=== PATIENT | female | born 1940 | race Caucasian/White ===

== ENCOUNTER 2016-04-24 09:41 | Day surgery (SDC) | payer OTHER ==
[2016-04-24] MEDS ORDERED: BUPIVACAINE/EPI 0.25% 30 ML SDV ONE (11:19)
[2016-04-24] MEDS ORDERED: PROPOFOL/EMULSION 500 MG/50 ML BOTTLE IV ONE (11:29)
[2016-04-24] MEDS ORDERED: PHENYLEPHRINE 0.5% NASAL 15 ML SPRAY ONE (11:30)
[2016-04-24] MEDS ORDERED: ONDANSETRON 4 MG/2 ML VIAL ONE (11:32)
[2016-04-24] MEDS ORDERED: LIDOCAINE 2% 5 ML SDV ONE (11:32)
[2016-04-24] MEDS ORDERED: MIDAZOLAM 2 MG/2 ML VIAL ONE (11:54)
[2016-04-24] MEDS ORDERED: fentaNYL 100 MCG/2 ML INJ ONE (12:19)
[2016-04-24] MEDS ORDERED: DEXAMETHASONE 4 MG/ML VIAL ONE ×2 (12:26→12:29)
[2016-04-24] MEDS ORDERED: HYDROCOD/APAP 7.5/325 IN 15ML UDCUP PO PRN (14:42)
[2016-04-24] MEDS ORDERED: ONDANSETRON 4 MG/2 ML VIAL IVP PRN (14:44)
[2016-04-24] MEDS ORDERED: ACETAMINOPHEN 160 MG/5 ML UDCUP PO PRN (14:45)
--- NOTE | 2016-05-01 12:14 | GOP ---
[f rep st] OPERATIVE REPORT DATE OF OPERATION: 04/24/2016 SURGEON: Kai Pierre MD CO SURGEON: Sophia Geronimo COMPLICATIONS: None. ANESTHESIA: General. PREOPERATIVE DIAGNOSIS: 1. 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 POSTOPERATIVE DIAGNOSIS: 1. 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 PROCEDURE PERFORMED: Destruction of oral mucosal lesion utilizing the CO2 laser. FINDINGS: Patient was found to have a 1 x 1 cm region just at the junction of the soft palate and the uvula that was irritated and slightly exophytic. Previous biopsy of this had been consistent with moderate dysplasia. ESTIMATED BLOOD LOSS: Minimal. INDICATIONS: The patient is a pleasant 75-year-old woman, who has a history of significant smoking abuse and an oral mucosal lesion that was noted by her dentist. 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 We discussed options including very close observation versus excision or destruction of the lesion, and she requested the latter secondary to her being significantly concerned about this. Informed consent was obtained. DESCRIPTION OF PROCEDURE: The patient was first seen in the preoperative area, where informed consent was obtained. She was then brought back to the operating room, where Anesthesia sedated and intubated her. We then used a universal timeout to confirm proper patient location and equipment. The laser wrap was there. All laser safety rules were followed. We did place wet cloths over the patient's face and mouth. A Glenis-Eldon mouth gag was placed and then retracted and suspended, giving good visualization of the oropharynx. The lesion was noted. Eye protection was placed for the patient, as well as for all people within the operating room , and the ET tube was covered using a wet Ray-Roselyn. Once we had good visualization, Dr. Pierre was the 1 who performed the CO2 laser excision on a continuous pulse of 5 cintron and multiple layer of lasering were done. The lesion was removed down to the muscular layer. There was no significant bleeding or other abnormalities. This was about a 13 x 8 mm section that included the junction of the soft palate into the uvula and then the right lateral surface of the uvula, and then a very minimal portion on the posterior surface of the soft palate. Once this was done, the laser was turned off. All instruments were removed. All the safety protection was removed from the patient and then the Glenis-Eldon mouth gag was then un-suspended and released and taken down. At this point, the patient was turned back over to anesthesia where she was awoken and extubated, and taken to PACU in stable condition. There were no complications and she tolerated the procedure well. /[id number]/MODL MTDD
== END 2016-04-24 15:45 | disposition home or self-care (01) ==
LOC: FSGY 09:41
PROVIDERS: ATTEND Otolaryngology
PROC: 0C5 Mouth and Throat, Destruction (ICD-10-PCS; 2016-04-24)
PROC: 0C53XZZ Destruction of Soft Palate, External Approach (ICD-10-PCS; principal; 2016-04-24 11:30)
DX: K13.29 Other disturbances of oral epithelium, including tongue (principal); K13.70 Unspecified lesions of oral mucosa; Z87.891 Personal history of nicotine dependence
CPT/HCPCS: J1100; J2250; J2405; J2704; J3010

== ENCOUNTER 2016-07-14 13:07 | Inpatient (IN) | payer OTHER ==
[2016-07-14] MEDS ORDERED: NS 1,000 ML IV ONE (13:12)
--- NOTE | 2016-07-14 13:15 | EDPHY ---
H & P Time Seen by Provider: 07/14/16 13:13 HPI/ROS: CHIEF COMPLAINT: Altered mental status HISTORY OF PRESENT ILLNESS: The patient presents to the ED after she was found with altered mental status in her garage. The patient was last seen her usual state of health by her daughter 3 days ago. The patient is unable to provide additional history secondary to acute altered mental status. The patient's daughter reports that she does have a history of alcohol dependence. The patient is not anticoagulated. Patient has not had a recent febrile illness, cough or complaints of acute pain per her daughter. REVIEW OF SYSTEMS: A comprehensive 10 point review of systems is unobtainable secondary to altered mental status Source: Family, EMS Exam Limitations: Clinical condition - Medical/Surgical History Hx Diabetes: No Other PMH: PCP Lenora Reinoso. Bilateral tear duct gland surgery (stents) - Social History Smoking Status: Former smoker Alcohol Use: Heavy - Physical Exam Exam: General Appearance: Elderly female, deconditioned, alert but confused Eyes: Pupils equal and round no pallor or injection ENT, Mouth: Dry mucous membranes Respiratory: There are no retractions, lungs are clear to auscultation Cardiovascular: Regular rate and rhythm Gastrointestinal: Abdomen is soft and nontender, no masses, bowel sounds normal Neurological: Withdrawals to pain all 4 extremities Skin: Multiple old areas of ecchymosis Musculoskeletal: Neck is supple nontender Extremities: No gross deformity Constitutional: Initial Vital Signs O2 Sat (%) 88 L 07/14/16 13:26 O2 Delivery Mode Nasal Cannula O2 (L/minute) 2 Allergies/Adverse Reactions: No Known Allergies Allergy (Verified 04/11/16 14:19) Home Medications: Medication Instructions Recorded ALPRAZolam [Xanax 1 MG (*)] 1 mg PO HS PRN 07/14/16 Medical Decision Making - Diagnostics EKG Interpretation: EKG: Complete interpretation has been separately recorded in the [email or web address] archive. Summary impression: Atrial fibrillation, nonspecific ST T wave changes noted, possible Casiano waves Imaging Results: Imaging Impressions Cervical Spine CT 07/14/16 13:12 Impression: 1. No acute fracture or soft tissue swelling. 2. Multilevel degenerative disk and facet arthropathy. 3. If the patient has persistent pain or neurologic deficits, consider cervical spine MRI. Findings discussed with Emergency Department physician, Haris Tompkins, on at 1350 hours. Chest X-Ray 07/14/16 13:12 Impression: Clear lungs. Negative portable chest. Head CT 07/14/16 13:12 Impression: Negative. No acute fracture or evidence of acute intracranial injury. Findings discussed with Emergency Department physician, Haris Tompkins, at 1350 hours 07/14/2016. Procedures: Procedure: Central line placement. Indication: Active rewarming Risks, benefits, alternatives discussed with the family including but not limited to bleeding, infection, vascular injury, and collapsed lung and consent obtained. A timeout was observed. Full maximal sterile barrier technique was used including cap, gown, sterile gloves, large sheet, hand washing and chlorhexidine prep. The area was anesthetized with 1% lidocaine. A Thermoguard triple lumen was placed in the right femoral using standard Seldinger technique. There were no complications. Blood return low pressure, dark blood. Patient tolerated procedure well. CXR results: Appropriate line placement. X-ray was interpreted by myself. Radiologist interpretation is pending. The procedure was performed by myself. ED Course/Re-evaluation: The patient presents to the ED with a core temperature of 28.2. The patient was taken for a stat CT scan of the head and cervical spine which demonstrate no evidence of intracranial hemorrhage or cervical spine fracture. The patient returned was brought into the resuscitation room. The patient received warm IV fluids, a bear hugger was applied while plans were made to insert a thermal guard catheter. I inserted the thermal guard catheter without complication. Postprocedure x- ray demonstrates the catheter to be located within the IVC. Consultation was made with Dr. Marciano Morfin from General surgery given the patient's hypothermia. The patient will be admitted to the trauma service in the intensive care unit. Reassessment at 3:45 p.m.: Thermoguard catheter has been place. Core temperature 90 31. Patient will be transferred to ICU. Additional workup of the patient's altered mental status and reassessment for occult trauma will be deferred to the admitting hospitalist and trauma surgeon. The patient is noted to have a normal chest x-ray without evidence of infiltrate. The patient's urinalysis demonstrates no evidence of an infection. Re-examination at 4:35 p.m. blood pressure now 32.6 degrees. Differential Diagnosis: Differential diagnosis considered includes hypothermia, arrhythmia, metabolic abnormality, intracranial hemorrhage, occult trauma Other Provider: Critical care time exclusive of procedures and exclusive of the PA's time was 75 minutes, performed by myself, Haris Tompkins MD. This involved active rewarming of the patient's hypothermia, evaluation of the possibility of significant intracranial trauma lower cervical spine injury, consultation with the trauma surgeon as well as hospitalist. Admission to the intensive care unit for close observation and further resuscitation. - Data Points Laboratory Results: Laboratory Results 07/14/16 13:40 07/14/16 13:40 07/14/16 07/14/16 07/14/16 13:55 13:40 13:40 WBC RBC Hgb Hct MCV MCH MCHC RDW Plt Count MPV Neut % (Auto) Lymph % (Auto) [place] % (Auto) Eos % (Auto) Baso % (Auto) Nucleat RBC Rel Count Absolute Neuts (auto) Absolute Lymphs (auto) Absolute Monos (auto) Absolute Eos (auto) Absolute Basos (auto) Absolute Nucleated RBC Immature Gran % Immature Gran # PT 15.2 SEC H SEC (12.0-15.0) INR 1.20 H (0.83-1.16) APTT 29.2 SEC SEC (23.0-38.0) Sodium 144 mEq/L mEq/L (134-144) Potassium 4.3 mEq/L mEq/L (3.5-5.2) Chloride 109 mEq/L mEq/L (97-110) Carbon Dioxide 19 mEq/l L mEq/l (22-31) Anion Gap 16 mEq/L mEq/L (8-16) BUN 7 mg/dL mg/dL (7-23) Creatinine 0.6 mg/dL mg/dL (0.6-1.0) Estimated GFR > 60 Glucose 59 mg/dL L mg/dL (70-100) Calcium 9.0 mg/dL mg/dL (8.5-10.4) Total Bilirubin 1.9 mg/dL H mg/dL (0.1-1.4) Conjugated Bilirubin 0.9 mg/dL H mg/dL (0.0-0.5) Unconjugated Bilirubin 1.0 mg/dL mg/dL (0.0-1.1) AST 212 IU/L H IU/L (14-46) ALT 104 IU/L H IU/L (9-52) Alkaline Phosphatase 128 IU/L H IU/L (38-126) Creatine Kinase 911 IU/L H IU/L (0-156) CK-MB (CK-2) Fraction 14.10 ng/mL H ng/mL (0-3.19) CK-MB (CK-2) % 1.5 % % (0.0-4.0) Creatine Kinase Interp NEGATIVE (NEGATIVE) Total Protein 6.4 g/dL g/dL (6.3-8.2) Albumin 3.7 g/dL g/dL (3.5-5.0) Urine Color YELLOW Urine Appearance HAZY Urine pH 5.0 (5.0-7.5) Ur Specific [place] 1.015 (1.002-1.030) Urine Protein 1+ H (NEGATIVE) Urine Ketones 1+ H (NEGATIVE) Urine Blood 2+ H (NEGATIVE) Urine Nitrate NEGATIVE (NEGATIVE) Urine Bilirubin NEGATIVE (NEGATIVE) Urine Urobilinogen NEGATIVE EU EU (0.2-1.0) Ur Leukocyte Esterase NEGATIVE (NEGATIVE) Urine RBC 1-3 /hpf /hpf (0-3) Urine WBC 1-3 /hpf /hpf (0-3) Ur Epithelial Cells TRACE /lpf /lpf (NONE-1+) Granular Casts 15-25 /lpf H /lpf (0-1) Urine Mucus TRACE /lpf /lpf (NONE-1+) Urine Glucose NEGATIVE (NEGATIVE) Ethyl Alcohol < 10 mg/dL mg/dL (0-10) 07/14/16 13:40 WBC 12.06 10^3/uL H 10^3/uL (3.80-9.50) RBC 3.44 10^6/uL L 10^6/uL (4.18-5.33) Hgb 13.6 g/dL g/dL (12.6-16.3) Hct 38.0 % % (38.0-47.0) MCV 110.5 fL H fL (81.5-99.8) MCH 39.5 pg H pg (27.9-34.1) MCHC 35.8 g/dL g/dL (32.4-36.7) RDW 13.7 % % (11.5-15.2) Plt Count 93 10^3/uL L 10^3/uL (150-400) MPV 9.4 fL fL (8.7-11.7) Neut % (Auto) 88.1 % H % (39.3-74.2) Lymph % (Auto) 5.0 % L % (15.0-45.0) [place] % (Auto) 6.1 % % (4.5-13.0) Eos % (Auto) 0.0 % L % (0.6-7.6) Baso % (Auto) 0.2 % L % (0.3-1.7) Nucleat RBC Rel Count 0.0 % % (0.0-0.2) Absolute Neuts (auto) 10.63 10^3/uL H 10^3/uL (1.70-6.50) Absolute Lymphs (auto) 0.60 10^3/uL L 10^3/uL (1.00-3.00) Absolute Monos (auto) 0.73 10^3/uL 10^3/uL (0.30-0.80) Absolute Eos (auto) 0.00 10^3/uL L 10^3/uL (0.03-0.40) Absolute Basos (auto) 0.03 10^3/uL 10^3/uL (0.02-0.10) Absolute Nucleated RBC 0.00 10^3/uL 10^3/uL (0-0.01) Immature Gran % 0.6 % % (0.0-1.1) Immature Gran # 0.07 10^3/uL 10^3/uL (0.00-0.10) PT INR APTT Sodium Potassium Chloride Carbon Dioxide Anion Gap BUN Creatinine Estimated GFR Glucose Calcium Total Bilirubin Conjugated Bilirubin Unconjugated Bilirubin AST ALT Alkaline Phosphatase Creatine Kinase CK-MB (CK-2) Fraction CK-MB (CK-2) % Creatine Kinase Interp Total Protein Albumin Urine Color Urine Appearance Urine pH Ur Specific [place] Urine Protein Urine Ketones Urine Blood Urine Nitrate Urine Bilirubin Urine Urobilinogen Ur Leukocyte Esterase Urine RBC Urine WBC Ur Epithelial Cells Granular Casts Urine Mucus Urine Glucose Ethyl Alcohol Medications Given: Discontinued Medications Sodium Chloride (Ns) 1,000 mls @ 0 mls/hr IV ONCE ONE PRN Reason: Wide Open Stop: 07/14/16 13:13 Last Admin: 07/14/16 13:25 Dose: 1,000 mls Departure - Departure Disposition: [facility] Acute Clinical Impression: Hypothermia, Altered mental status, Alcohol abuse, Atrial fibrillation Condition: Critical
[2016-07-14 13:52] LABS: % IMMATURE GRANULYOCYTES 0.6 % (0.0-1.1); ABSOLUTE IMMATURE GRANULOCYTES 0.07 10^3/uL (0.00-0.10); ADD DIFF? NO; ADD MORPH? NO; ADD SCAN? NO; ATYPICAL LYMPHOCYTE FLAG 0 (0-99); FRAGMENT RBC FLAG 0 (0-99); HEMOGLOBIN 13.6 g/dL (12.6-16.3); LEFT SHIFT FLG 20 (0-99); LIPEMIA HEMOLYSIS FLAG 90 (0-99); MEAN CELL HEMOGLOBIN 39.5 pg (27.9-34.1); MEAN CELL HEMOGLOBIN CONCENTR. 35.8 g/dL (32.4-36.7); MEAN CELL VOLUME 110.5 fL (81.5-99.8); MEAN PLATELET VOLUME 9.4 fL (8.7-11.7); PLATELET CLUMPS FLAG 0 (0-99); PLATELET COUNT 93 10^3/uL (150-400); RED BLOOD CELL COUNT 3.44 10^6/uL (4.18-5.33); RED CELL DISTRIBUTION WIDTH 13.7 % (11.5-15.2)
[2016-07-14 14:02] LABS: INR 1.2 (0.83-1.16); PROTIME(PATIENT) 15.2 SEC (12.0-15.0)
[2016-07-14 14:03] LABS: APTT 29.2 SEC (23.0-38.0)
[2016-07-14 14:12] LABS: ALANINE AMINOTRANSFERASE 104 IU/L (9-52); ALBUMIN 3.7 g/dL (3.5-5.0); ALKALINE PHOSPHATASE 128 IU/L (38-126); ANION GAP 16 mEq/L (8-16); ASPARTATE AMINOTRANSFERASE 212 IU/L (14-46); BILIRUBIN,TOTAL 1.9 mg/dL (0.1-1.4); BILIRUBIN-CONJUGATED 0.9 mg/dL (0.0-0.5); CARBON DIOXIDE 19 mEq/l (22-31); CHLORIDE 109 mEq/L (97-110); CREATININE 0.6 mg/dL (0.6-1.0); ETHANOL SERUM < 10 mg/dL (0-10); GLOMERULAR FILTRATION RATE > 60; GLUCOSE 59 mg/dL (70-100); POTASSIUM 4.3 mEq/L (3.5-5.2); SODIUM 144 mEq/L (134-144); TOTAL PROTEIN 6.4 g/dL (6.3-8.2)
[2016-07-14 14:32] LABS: CK-MB INTERPRETATION NEGATIVE (NEGATIVE)
[2016-07-14 15:49] LABS: COLOR YELLOW; LEUKOCYTE ESTERASE,URINE NEGATIVE (NEGATIVE); NITRITE,URINE NEGATIVE (NEGATIVE)
[2016-07-14 15:54] LABS: GRANULAR CASTS 15-25 /lpf (0-1); MUCUS TRACE /lpf (NONE-1+)
--- NOTE | 2016-07-14 16:04 | CPEKG ---
Heart Rate: 95 RR Interval: 632 QRSD Interval: 100 QT Interval: 408 QTC Interval: 513 QRS [place]: 52 T Wave [place]: 259 EKG Severity - ABNORMAL ECG - EKG Impression: ATRIAL FIBRILLATION EKG Impression: LOW VOLTAGE IN FRONTAL LEADS EKG Impression: TALL R WAVE IN V2, CONSIDER RVH OR PMI EKG Impression: BORDERLINE PROLONGED QT INTERVAL Electronically Signed By: Haris Tompkins 14-Jul-2016 17:49:21
--- NOTE | 2016-07-14 16:48 | SOAPPROG ---
SOAP Progress Note Assessment/Plan: Assessment: 76-year-old female found down and cold for uncertain reason / no signs of major trauma / patient presented with temperature of 28 centigrade but is responsive HEENT without signs of trauma or bruits Cor is irregular rhythm consistent with AFib Lungs are clear and symmetrical Abdomen soft and nontender Extremities have decreased pulses but they are cool No major past history obtainable except the patient is an alcoholic No major medicines or major allergies impression: Hypothermia with no evidence of trauma and atrial fibrillation Chest x-ray, head and neck CT scans are all negative Plan: admit for primary guarded catheter and warming / Internal Medicine consult 07/14/16 16:44 Objective: Vital Signs Temp Pulse Resp BP Pulse Ox 32 C L 88 24 H 128/44 H 100 07/14/16 16:00 07/14/16 16:00 07/14/16 16:00 07/14/16 16:00 07/14/16 16:00 07/13/16 07/14/16 07/15/16 05:59 05:59 05:59 Intake Total 1500 Balance 1500 PT 15.2 SEC (12.0-15.0) H 07/14/16 13:40 INR 1.20 (0.83-1.16) H 07/14/16 13:40 ICD10 Worksheet Patient Problems: Problems Problem Status Onset Alcohol abuse Acute Altered mental status Acute Atrial fibrillation Acute Hypothermia Acute
[2016-07-14] MEDS ORDERED: ONDANSETRON DISINTEGRATING 4 MG TAB PO PRN (16:59)
[2016-07-14] MEDS ORDERED: ONDANSETRON 4 MG/2 ML VIAL IVP PRN (16:59)
[2016-07-14] MEDS ORDERED: ACETAMINOPHEN 325 MG TAB PO PRN (16:59)
[2016-07-14] MEDS ORDERED: ENOXAPARIN 60 MG/0.6 ML SYR SC ONE (17:04)
[2016-07-14] MEDS ORDERED: LORazepam 2 MG/ML INJ IVP PRN ×2 (17:05)
[2016-07-14] MEDS ORDERED: chlordiazePOXIDE 25 MG CAP PO PRN (17:05)
[2016-07-14] MEDS ORDERED: MAGNESIUM SULF 2 GM/WATER 50 ML IV ONE ×2 (17:05→19:00)
[2016-07-14] MEDS ORDERED: D5W NS 1,000 ML IV SCH (17:15)
--- NOTE | 2016-07-14 17:42 | GHP ---
[f rep st] HISTORY AND PHYSICAL DATE OF ADMISSION: 07/14/2016 CHIEF COMPLAINT: Found down. HISTORY OF PRESENT ILLNESS: This is a 76-year-old female without really any medical history, althou gh she IS a regular alcohol user and has a little bit of anxiety. Apparently last time she was seen was 2 days ago, and she was found by her daughter this morning down in the garage. Apparently, she had fallen, and it is unclear how long she had been there. The patient is able to communicate some now. She does not remember what happened. She came in with a core temperature of 28 degrees, and she is being currently warmed and is now on the trauma service. Apparently, no acute injuries have been noted on CT scanning. REVIEW OF SYSTEMS: Unable to obtain secondary to patient's altered mental status. PAST MEDICAL HISTORY: Anxiety, alcohol abuse. SOCIAL HISTORY: Alcohol. Lives alone. FAMILY HISTORY: Unable to be obtained. PHYSICAL EXAMINATION: VITAL SIGNS: Initial temperature was 28.2. With a few hours of warming has come up 32. Heart rates in the 80s. Blood pressure 128/44. Oxygen saturation is 100% on 4 L. GEN ERAL: Patient is well-developed, in no apparent distress. HEENT: Nonicteric sclerae. Very dry mu cous membranes. NECK: Supple. No thyromegaly. LUNGS: Good effort. Clear to auscultation bilate rally. CARDIOVASCULAR: Irregularly irregular. No murmurs, rubs or gallops. ABDOMEN: Positive juan manuel wel sounds. Soft, nontender, nondistended. No hepatosplenomegaly. EXTREMITIES: No clubbing or cy anosis. There is some bruising over both bilateral hands. NEUROLOGIC: Is responding to some quest ions. Moving all 4 extremities. PSYCHIATRIC: Unable to be obtained. LABS: White blood cell count is elevated at 12, hemoglobin 13, MCV is 110, platelets are 93. Sodiu m 144, potassium 4.3, BUN is 7, creatinine 0.6. Total bilirubin is 1.9. AST 212, ALT 104, alkaline phosphatase 128. CK is 911. EKG personally reviewed and interpreted shows atrial fibrillation. CT scan of the cervical spine is negative. CT scan of the head is negative. Chest x-ray, personall y reviewed and interpreted, shows no pulmonary pathology. ASSESSMENT: This is a 76-year-old female found down with hypothermia and encephalopathy. PLAN: 1. Severe hypothermia. Patient is currently being warmed and will be going to the ICU. We will co ntinue that protocol. 2. New onset atrial fibrillation. She does not have a previous history of this. I am sure that he r current critical illness is causing this. We will get an echocardiogram. She is currently rate c ontrolled. Because of the atrial fibrillation, we will give 1 dose of Lovenox tonight and can decid e in the morning if we want to continue anticoagulation. 3. Rhabdomyolysis. We will continue the IV fluids and recheck her CPK in the morning. I am not go ing to give super-aggressive doses of hydration considering her age and relatively low number of her CPK currently. 4. Elevated liver function tests. Most likely due to alcoholism and rhabdomyolysis. 5. Alcoholism. We will watch for withdrawal. 6. Code status. Patient is full code. 40 minutes of critical care time spent with this patient. /[id number]/MODL
[2016-07-14] MEDS ORDERED: THIAMINE HCL 100 MG TAB PO SCH (18:00)
[2016-07-14] MEDS: THIAMINE HCL 100 MG in NS 100 ML IV SCH (19:38)
[2016-07-14] MEDS: oxyCODONE IR 5 MG TAB PO PRN (20:48)
--- NOTE | 2016-07-14 21:47 | GHP ---
[f rep st] PREOP HISTORY AND PHYSICAL DATE OF ADMISSION: 07/14/2016 HISTORY OF PRESENT ILLNESS: This is a 76-year-old female found down in a garage for undetermined le ngth of time. She was brought to the emergency room hypothermic with a temperature of 28 but respon sive. She does not remember any part of the episode and complains of no pain at any point. PAST MEDICAL HISTORY: Includes alcohol abuse and anxiety. No definite surgeries or other hospitali zations. FAMILY HISTORY: Noncontributory. REVIEW OF SYSTEMS: By her daughter is unrevealing. The patient is unable to complete a review of s ystems. She has a history of atrial fibrillation but is on no medication. ALLERGIES: None. MEDICATIONS: None. PHYSICAL EXAMINATION: GENERAL: Reveals an alert but dazed 76-year-old female in no acute distress. She is disoriented but answering questions. HEAD AND NECK: Reveals no signs of trauma. Pupils w ere equal, nonicteric. There is no adenopathy and no oral lesions. CHEST: Clear. CARDIAC: Irreg ular rhythm without murmurs. ABDOMEN: Soft, nontender, with bowel sounds. Nondistended. EXTREMIT IES: Reveal full range of motion. Full pulses, although her feet are cool. IMPRESSION: 1. Hypothermia for unknown reasons except for exposure. 2. Atrial fibrillation. 3. Mild rhabdomyolysis. 4. History of alcoholism. 5. Abnormal liver function tests. PLAN: The patient had a ThermoCath placed in the ear and is being rewarmed at this time, and that w ill continue until adequate warming. In addition, we will obtain an Internal Medicine consultation for further development. It should be noted her head and neck CT scans and chest x-ray were all neg ative. /[id number]/MODL
[2016-07-15] MEDS: oxyCODONE IR 5 MG TAB PO PRN ×2 (00:56→21:02)
[2016-07-15 05:17] LABS: % IMMATURE GRANULYOCYTES 0.7 % (0.0-1.1); ABSOLUTE IMMATURE GRANULOCYTES 0.05 10^3/uL (0.00-0.10); ABSOLUTE NRBC COUNT 0.02 10^3/uL (0-0.01); ADD DIFF? NO; ADD MORPH? NO; ADD SCAN? NO; ATYPICAL LYMPHOCYTE FLAG 0 (0-99); FRAGMENT RBC FLAG 0 (0-99); HEMATOCRIT 31.7 % (38.0-47.0); HEMOGLOBIN 10.9 g/dL (12.6-16.3); LEFT SHIFT FLG 20 (0-99); LIPEMIA HEMOLYSIS FLAG 90 (0-99); MEAN CELL HEMOGLOBIN 38.5 pg (27.9-34.1); MEAN CELL HEMOGLOBIN CONCENTR. 34.4 g/dL (32.4-36.7); MEAN PLATELET VOLUME 10.2 fL (8.7-11.7); NRBC-AUTO% 0.3 % (0.0-0.2); PLATELET CLUMPS FLAG 10 (0-99); PLATELET COUNT 92 10^3/uL (150-400); RED BLOOD CELL COUNT 2.83 10^6/uL (4.18-5.33)
[2016-07-15 05:23] LABS: ALANINE AMINOTRANSFERASE 89 IU/L (9-52); ALKALINE PHOSPHATASE 95 IU/L (38-126); ANION GAP 7 mEq/L (8-16); ASPARTATE AMINOTRANSFERASE 133 IU/L (14-46); BILIRUBIN,TOTAL 1.3 mg/dL (0.1-1.4); CALCIUM 7.6 mg/dL (8.5-10.4); CARBON DIOXIDE 21 mEq/l (22-31); CHLORIDE 111 mEq/L (97-110); CREATININE 0.6 mg/dL (0.6-1.0); GLOMERULAR FILTRATION RATE > 60; GLUCOSE 256 mg/dL (70-100); MAGNESIUM 1.9 mg/dL (1.6-2.3); POTASSIUM 4.3 mEq/L (3.5-5.2); SODIUM 139 mEq/L (134-144); TOTAL PROTEIN 5.3 g/dL (6.3-8.2)
[2016-07-15 05:50] LABS: CK-MB INTERPRETATION NEGATIVE (NEGATIVE)
[2016-07-15] MEDS: THIAMINE HCL 100 MG in NS 100 ML IV SCH (09:47)
[2016-07-15] MEDS: FOLIC ACID 1 MG TAB PO SCH (09:47)
[2016-07-15] MEDS: MULTIVITAMINS 1 EACH TAB PO SCH (09:47)
[2016-07-15 10:35] LABS: PHENCYCLIDINE URINE BCH < 6 ng/ml (NEGATIVE); PHENCYCLIDINE URINE BCH NEGATIVE (NEGATIVE); TETRAHYDROCANNABINOL URINE < 5 ng/mL (NEGATIVE); TETRAHYDROCANNABINOL URINE NEGATIVE (NEGATIVE)
--- NOTE | 2016-07-15 11:05 | ECHO ---
[id number] + + [address] : : [place] [address] : : [phone] + Adult Echocardiographic Report + --------+ :Name: LAUREN FERNANDES MStudy Date: 07/15/2016 09:13 AM BP: 113/44 mm Hg : : Hospital Admission Number: [id number] Locat ion: 255: :: 1940 Gender: Female Height: 61 in : :Age: 76 yrs Race: WH Weight: 110 l b : :Reason For Study: new onset afib : : BSA: 1.5 mete rs2 : :History: fall : + --------+ MMode/2D Measurements \T\ Calculations IVSd: 0.88 cm RVDd: 1.9 cm FS: 35.7 % Ao root diam: 2.9 cm LVPWd: 0.83 cm LVIDd: 3.9 cm EDV(Teich): 64.1 ml LVIDs: 2.5 cm ESV(Teich): 21.8 ml EF(Teich): 66.0 % Normal Measurement Values: + + :LVIDd (3.5-5.7cm) IVSd (0.6-1.1cm) LVPWd (0.6-1.1cm) Aortic Root (2.0-3.7cm)Left Atrium (1.5-4.0cm): :LV Vol(d) (76-115ml) LV Vol(s) (29-48ml) Ejec Fraction (50-65%)PV Jonathan (0.6- 1.2m/s) TV Jonathan (0.4-1.0m/s) : :MV E Jonathan (0.8-1.0m/s)MV A Jonathan (0.3-1.0m/s)LVOT Jonathan (0.7-1.2m/s) Asc Ao Jonathan ( 0.9-1.8m/s) : + + Doppler Measurements \T\ Calculations MV E max jonathan: Ao V2 max: LV V1 max: PA V2 max: 105.8 cm/sec 131.7 cm/sec 68.4 cm/sec 62.1 cm/sec MV A max jonathan: Ao max P.9 mmHgLV V1 max PG: PA max P.3 cm/sec 1.9 mmHg 1.5 mmHg MV E/A: 1.3 MV dec time: 0.16 sec TR max jonathan: 287.8 cm/sec TR max P.1 mmHg RAP systole: 5.0 mmHg RVSP(TR): 38.1 mmHg Left Ventricle The left ventricle is normal in size and function. There is normal left ventricular wall thickness. Ejection Fraction = 65%. No regional wall motion abnormalities noted. Right Ventricle The right ventricle is normal in size and function. Atria The left atrial size is normal. Right atrial size is normal. Mitral Valve The mitral valve is normal in structure and function. There is no mitral valve stenosis. There is mild mitral regurgitation. The mitral regurgitant jet is eccentrically directed. Tricuspid Valve The tricuspid valve is normal in structure and function. There is no tricuspid stenosis. There is mild tricuspid regurgitation. Right ventricular systolic pressure is 38mmHg. There is Doppler evidence for mild pulmonary hypertension. Aortic Valve The aortic valve is normal in structure and function. There is no aortic stenosis. There is no aortic insufficiency. Pulmonic Valve The pulmonic valve is not well visualized. Great Vessels The aortic root is normal size. Pericardium/Pleural Small pericardial effusion. A circumferential pericardial effusion is noted. Conclusion A two-dimensional transthoracic echocardiogram with M-mode and Doppler was performed. The left ventricle is normal in size and function. Ejection Fraction = 65%. There is mild mitral regurgitation. There is mild tricuspid regurgitation. Right ventricular systolic pressure is 38mmHg. There is Doppler evidence for mild pulmonary hypertension. The aortic valve is normal in structure and function. Small pericardial effusion. Final Reading Physician: Karl Blevins, Melectronically signed on 07/15/2016 11:03 AM Ordering Physician: Love Leggett Performed By: Haritha Hong
[2016-07-15] MEDS ORDERED: NS 1,000 ML IV ONE (11:43)
--- NOTE | 2016-07-15 11:55 | PDINTPN ---
Floral Assistant Progress Note Assessment/Plan: Assessment: Hypothermia: Resolved. Still has low urine output, likely due to dehydration. Rhabdomyalysis: Improving Hepatitis: Likely due to dehydration, hypothermia. Improving EtOH abuse: Macrocytic anemia Plan: IVF bolus, then remove Zamora. OK to discharge later today if able to walke and eat. WIll give the patient information of resources for EtOH abuse. 07/15/16 11:52 Subjective: Feels better. Appetite good, no nausea, denies pain. Objective: Vital Signs Temp Pulse Resp BP Pulse Ox 36.8 C 87 20 126/43 H 96 07/15/16 08:00 07/15/16 10:00 07/15/16 10:00 07/15/16 10:00 07/15/16 10:00 Laboratory Results 07/15/16 04:45 07/15/16 04:45 07/14/16 07/15/16 07/16/16 05:59 05:59 05:59 Intake Total 3226.6 Output Total 575 Balance 2651.6 PT 15.2 SEC (12.0-15.0) H 07/14/16 13:40 INR 1.20 (0.83-1.16) H 07/14/16 13:40 Laboratory Tests 07/14/16 07/15/16 13:40 04:45 Glucose 256 H AST 212 H 133 H ALT 104 H 89 H Creatine Kinase 911 H 588 H Physical Exam - Physical Exam General Appearance: alert, no apparent distress EENT: normal ENT inspection Neck: normal inspection Respiratory: lungs clear, normal breath sounds Cardiac/Chest: regular rate, rhythm, No edema Skin: normal color, warm/dry Extremities: No normal inspection (hand eccymoses) Neuro/Psych: alert, normal mood/affect, oriented x 3 ICD10 Worksheet Patient Problems: Problems Problem Status Onset Alcohol abuse Acute Altered mental status Acute Atrial fibrillation Acute Hypothermia Acute
--- NOTE | 2016-07-15 12:18 | GCON ---
[f rep st] CONSULTATION PULMONARY/CRITICAL CARE CONSULTATION DATE OF CONSULTATION: 07/14/2016 REFERRING PHYSICIAN: Love Leggett MD REASON FOR REFERRAL: Evaluation and management of hypothermia. HISTORY: The patient is a 76-year-old woman with a history of alcohol abuse, who was last seen abou 2 days ago. She was found down this morning in her garage by her daughter. The patient is unable to say why she fell, how long she had been down, and why she could not get up. Her core body tempe rature was 28 degrees Celsius when she came in. A warming catheter was placed in the emergency depa rtment. The patient is somewhat anxious and asking if she can go home. She denies pain or nausea. She does have a bit of an appetite. PAST MEDICAL HISTORY: Alcohol abuse. MEDICATIONS: Alprazolam. ALLERGIES: None. SOCIAL HISTORY: The patient lives alone. She drinks alcohol daily, according to her daughter, lola hernandez the patient states that she does not drink every day. FAMILY HISTORY: Unremarkable. REVIEW OF SYSTEMS: A 10-point review of systems adds nothing to the History of Present Illness. PHYSICAL EXAMINATION: GENERAL: The patient is awake, alert, and in no acute distress. VITAL SIGNS : Blood pressure is 128/44, with a heart rate of 88. Her temperature is 32 degrees Celsius. Her ox ygen saturations are 100% on 4 L. HEENT: Normocephalic and atraumatic. No icterus. NECK: No candy nopathy. Trachea is midline. CHEST: Clear to auscultation. CARDIAC: Regular rate and rhythm, wi thout murmur. ABDOMEN: Soft, nontender. Bowel sounds are present. EXTREMITIES: No clubbing or c yanosis. She has ecchymoses on her hands. NEURO: The patient is awake and alert. She is able to move all extremities, but is unable to walk due to the femoral catheter. LABORATORY DATA: Sodium is 144. Creatinine is 0.6. CK is 911. AST is 212. White blood count is 12.1, with a hemoglobin of 13.6 and an MCV of 110.5. Platelet count is 93. An alcohol level is les s than 10. A chest x-ray shows no infiltrates, essentially unremarkable. Images reviewed. ASSESSMENT: 1. Hypothermia. This is likely due to environmental exposure. A warming catheter has been placed, and her temperature has started to increase. 2. History of alcohol abuse. This likely contributed to the patient being found down. There has b een no apparent acute trauma, suggesting a fall. 3. Rhabdomyolysis. This is fairly mild at this point. The patient is on IV fluids. 4. Elevated liver function tests. 5. Macrocytic anemia. This is likely due to alcohol use. RECOMMENDATIONS: Continue IV fluids and warming. Her CPKs and liver function tests will be recheck ed. The patient will need to stay at least overnight. Once she is discharged, she will be offered outpatient alcohol counseling and support to assist with stopping her alcohol intake. /[id number]/MODL
[2016-07-15] MEDS ORDERED: NS 500 ML IV ONE (15:24)
--- NOTE | 2016-07-15 15:26 | HOSPPROG ---
Hospitalist Progress Note Assessment/Plan: Hypothermia - found down, s/p rewarming. Suspect this was in the setting of etoh. Pt also takes Xanax (+bzd on drug screen). Rhabdo - mild, nl Cr, nl phos. CK trending down. Continue IVF's. A fib - new onset, brief, now in NSR. Will obtain EKG to document NSR. Echo reviewed, no significant valve disease. -check TSH -defer anticoagulation unless a fib recurs, and then will need to weight risk /benefit, consider hasbled score given her etoh abuse, falls, etc Alcohol dependence - sounds like she has some w/d symptoms noticed by her daughter intermittently. -CIWA, prn ativan -watch in SDU tonight in case she requires precedex Gait instability - query general deconditioning in setting of chronic etoh abuse -will give wernicke's dose IV thiamine and monitor -PT/OT evals. Elevated LFT's - trending down, likely alcoholic hepatitis, but will check acute hepatitis panel and tylenol level given that she was found down. DVT PPLX - Lovenox Full code Dispo - cont inpt, SDU, CM consult for resources regarding etoh tx Subjective: Pt feels a bit better today, doesn't remember much about what happened yesterday. NO fevers/chills. Notes chronic epigastric discomfort, occasional vomiting and diarrhea, nothing acute. Decreased uop noted by RN. Objective: Vital Signs Temp Pulse Resp BP Pulse Ox 36.8 C 91 16 121/59 H 92 07/15/16 08:00 07/15/16 14:00 07/15/16 14:00 07/15/16 14:00 07/15/16 14:00 Laboratory Results 07/15/16 04:45 07/15/16 04:45 07/14/16 07/15/16 07/16/16 05:59 05:59 05:59 Intake Total 3226.6 Output Total 575 Balance 2651.6 PT 15.2 SEC (12.0-15.0) H 07/14/16 13:40 INR 1.20 (0.83-1.16) H 07/14/16 13:40 - Physical Exam Constitutional: no apparent distress Eyes: PERRL Ears, Nose, Mouth, Throat: moist mucous membranes Cardiovascular: regular rate and rhythym, no murmur, rub, or gallop Respiratory: no respiratory distress, clear to auscultation Gastrointestinal: normoactive bowel sounds, soft, non-tender abdomen Skin: warm Musculoskeletal: full muscle strength Neurologic: AAOx3 Psychiatric: interacting appropriately ICD10 Worksheet Patient Problems: Problems Problem Status Onset Alcohol abuse Acute Altered mental status Acute Atrial fibrillation Acute Hypothermia Acute
--- NOTE | 2016-07-15 15:55 | CPEKG ---
Heart Rate: 89 RR Interval: 674 P-R Interval: 213 QRSD Interval: 62 QT Interval: 392 QTC Interval: 477 P [place]: 0 QRS [place]: 35 T Wave [place]: -6 EKG Severity - BORDERLINE ECG - EKG Impression: SINUS RHYTHM EKG Impression: LOW VOLTAGE THROUGHOUT EKG Impression: NON-SPECIFIC ST DEPRESSION ANTERIOR-LATERAL LEADS Electronically Signed By: Man Yadav 16-Jul-2016 07:38:42
[2016-07-15] MEDS: PANTOPRAZOLE SODIUM 40 MG TAB PO SCH (16:12)
[2016-07-15] MEDS: ENOXAPARIN 40 MG/0.4 ML SYR SC SCH (16:12)
[2016-07-15] MEDS: 1/2 NS 1,000 ML IV SCH (19:56)
[2016-07-15] MEDS: THIAMINE HCL 500 MG in NS 100 ML IV SCH (21:02)
[2016-07-16] MEDS: oxyCODONE IR 5 MG TAB PO PRN (00:57)
[2016-07-16] MEDS: LORazepam 1 MG TAB PO PRN (03:40)
[2016-07-16 04:22] LABS: ANION GAP 5 mEq/L (8-16); CALCIUM 7.6 mg/dL (8.5-10.4); CARBON DIOXIDE 19 mEq/l (22-31); CHLORIDE 110 mEq/L (97-110); CREATININE 0.5 mg/dL (0.6-1.0); GLOMERULAR FILTRATION RATE > 60; GLUCOSE 107 mg/dL (70-100); SODIUM 134 mEq/L (134-144)
[2016-07-16] MEDS: THIAMINE HCL 500 MG in NS 100 ML IV SCH ×3 (06:37→20:58)
[2016-07-16] MEDS: 1/2 NS 1,000 ML IV SCH (06:46)
[2016-07-16] MEDS: PANTOPRAZOLE SODIUM 40 MG TAB PO SCH (08:36)
[2016-07-16] MEDS: FOLIC ACID 1 MG TAB PO SCH (08:36)
[2016-07-16] MEDS: ENOXAPARIN 40 MG/0.4 ML SYR SC SCH (08:36)
[2016-07-16] MEDS: MULTIVITAMINS 1 EACH TAB PO SCH (08:36)
[2016-07-16] MEDS ORDERED: FUROSEMIDE 20 MG/2 ML VIAL IVP ONE (10:41)
[2016-07-16] MEDS ORDERED: CLOBETASOL 0.05% 15 GM OINT TUBE TP PRN (11:13)
--- NOTE | 2016-07-16 11:21 | HOSPPROG ---
Hospitalist Progress Note Assessment/Plan: 76 with h/o alcohol abuse presented to ED after being found down in her garage. Admitted to trauma service though medicine is now primary. Hypothermia - found down, s/p rewarming. Suspect this was in the setting of etoh. Pt also takes Xanax as outpt (+bzd on drug screen). Hypoxemia - on 2 L O2. She may have undiagnosed COPD given her significant tobacco hx (quit 1 yr ago, previously a heavy smoker). Lungs look a bit hyperexpanded by CXR with some peribronchial thickening, personally reviewed and interpreted. No e/o PNA. -check bedside PFT's -trial duonebs -wean O2 as able (may improve with lasix) -outpt pulm f/u if hypoxemia persists Rhabdo - mild, nl Cr, nl phos. CK trending down. Will d/c IVF's due to volume overload. Volume overload, mild - Lasix today. A fib - new onset, brief, now in NSR. Echo reviewed, no significant valve disease. TSH normal -defer anticoagulation unless a fib recurs, and then will need to weight risk /benefit, consider has-bled score given her etoh abuse, falls, etc Alcohol dependence - sounds like she has some w/d symptoms in past noticed by her daughter as outpt. Max CIWA 8 overnight. She wants to get sober and maintain sobriety. -Cont CIWA, prn ativan Anemia / thrombocytopenia - likely 2/2 etoh, follow. Metabolic acidosis - mild, suspect alcoholic ketoacidosis, follow. Gait instability - query general deconditioning in setting of chronic etoh abuse -Cont wernicke's dose IV thiamine and monitor -PT/OT evals. Elevated LFT's - trending down. Tylenol level neg. Hepatitis panel pending. DVT PPLX - Lovenox Full code Dispo - cont inpt, transfer to med surg, awaiting PT/OT, cog evals to determine safety to dc home Subjective: Pt feels better this am. Feels a bit more steady on her feet. No CP or SOB. No fevers. No significant w/d signs overnight. Objective: Vital Signs Temp Pulse Resp BP Pulse Ox 36.8 C 103 H 19 116/65 98 07/16/16 08:00 07/16/16 08:00 07/16/16 08:00 07/16/16 08:00 07/16/16 08:00 Laboratory Results 07/15/16 04:45 07/16/16 03:45 07/15/16 07/16/16 07/17/16 05:59 05:59 05:59 Intake Total 3226.6 6121 120 Output Total 575 700 100 Balance 2651.6 5421 20 PT 15.2 SEC (12.0-15.0) H 07/14/16 13:40 INR 1.20 (0.83-1.16) H 07/14/16 13:40 - Physical Exam Constitutional: no apparent distress Eyes: PERRL Ears, Nose, Mouth, Throat: moist mucous membranes Cardiovascular: regular rate and rhythym Respiratory: no respiratory distress, inspiratory crackles Gastrointestinal: normoactive bowel sounds, soft, non-tender abdomen Skin: warm Musculoskeletal: generalized weakness Neurologic: AAOx3, other (mild UE tremor L>R) Psychiatric: interacting appropriately ICD10 Worksheet Patient Problems: Problems Problem Status Onset Alcohol abuse Acute Altered mental status Acute Atrial fibrillation Acute Hypothermia Acute
[2016-07-16] MEDS: IPRATROPIUM/ALBUTEROL 3 ML DEYVIAL IH SCH ×3 (15:02→20:32)
[2016-07-16] MEDS ORDERED: oxyCODONE IR 5 MG TAB PO PRN (21:56)
[2016-07-17] MEDS: LORazepam 1 MG TAB PO PRN (00:13)
[2016-07-17] MEDS: IPRATROPIUM/ALBUTEROL 3 ML DEYVIAL IH SCH ×2 (03:55→10:30)
[2016-07-17] MEDS: THIAMINE HCL 500 MG in NS 100 ML IV SCH (05:05)
[2016-07-17 05:11] LABS: ANION GAP 5 mEq/L (8-16); CARBON DIOXIDE 25 mEq/l (22-31); CHLORIDE 103 mEq/L (97-110); CREATININE 0.5 mg/dL (0.6-1.0); GLOMERULAR FILTRATION RATE > 60; GLUCOSE 107 mg/dL (70-100); POTASSIUM 3.3 mEq/L (3.5-5.2); SODIUM 133 mEq/L (134-144)
[2016-07-17] MEDS ORDERED: THIAMINE HCL 100 MG TAB PO SCH (09:00)
[2016-07-17] MEDS: MULTIVITAMINS 1 EACH TAB PO SCH (09:26)
[2016-07-17] MEDS: PANTOPRAZOLE SODIUM 40 MG TAB PO SCH (09:26)
[2016-07-17] MEDS: FOLIC ACID 1 MG TAB PO SCH (09:26)
[2016-07-17] MEDS ORDERED: POTASSIUM CL 20 MEQ TAB PO ONE (10:00)
[2016-07-17] MEDS: ENOXAPARIN 40 MG/0.4 ML SYR SC SCH (10:06)
--- NOTE | 2016-07-17 10:58 | PDIAF ---
- Diagnosis Diagnosis: hypothermia Code Status: Full Code - Medication Management Discharge Medications: Medications to Continue on Transfer ALPRAZolam [Xanax 1 MG (*)] 1 mg PO HS PRN #30 tab 07/17/16 [Last Taken Unknown] Clobetasol 0.05% [Temovate Ointment] 1 emre TP DAILY PRN #0 oint 07/17/16 [Last Taken Unknown] Multivitamins [Multivitamin (*)] 1 each PO DAILY tab 07/17/16 [Last Taken Unknown] Pantoprazole Sodium [Protonix 40mg (*)] 40 mg PO DAILY tab 07/17/16 [Last Taken Unknown] Thiamine HCl [B-1] 100 mg PO DAILY #30 tablet 07/17/16 [Last Taken Unknown] oxyCODONE IR [Oxycodone Ir (*)] 5 mg PO BID PRN #30 tab 07/17/16 [Last Taken Unknown] Discharge Medications: Refer to the Discharge Home Medication list for PRN reason. - Orders Services needed: Certified Cafeteria Aide, Physical Therapy, Occupational Therapy Oxygen: Currently on 1-2L, dests at night - Labs/Radiology BMP Date: 07/19/16 CBC Date: 07/19/16 LFT Date: 07/19/16 - Follow Up Care Current Providers and Referrals: Patient,NotPresent [Unknown] - As per Instructions
[2016-07-17 11:06] VITALS: BP 105/62; TEMP 98.2
[2016-07-17 11:24] VITALS: PULSE 94; RESP 16; O2SAT 95
--- NOTE | 2016-07-17 11:32 | GDS ---
[f rep st] DISCHARGE SUMMARY ALL DIAGNOSES: 1. Hypothermia, initial body temperature 28 degrees Celsius. 2. Hypoxia. 3. New diagnosis of chronic obstructive pulmonary disease. 4. Rhabdomyolysis. 5. Volume overload. 6. Brief episode of atrial fibrillation. 7. Alcohol dependence and mild withdrawal. 8. Anemia and thrombocytopenia. 9. Metabolic acidosis. 10. Gait instability. 11. Elevated liver function tests. 12. Hyponatremia. 13. Hypokalemia. HOSPITAL COURSE: This is a 76-year-old female with very little past medical history, who presented after being found down in her garage. Her initial body temperature was 28 degrees. She was re-warm ed under our protocol. It was felt that she was found down due to excessive alcohol as well as johana odiazepine use. She was initially admitted to the ICU, has been stable on the floor. She has had m ild alcohol withdrawal but does not give a very significant long history. She tells me she drinks a few glasses of wine a day. She is currently requiring small amounts of oxygen with greater amounts at night. PFTs here show se johnny obstructive pattern. She had a long history of tobacco use, I suspect that this is undiagnosed COPD. She will need followup for this. She does not feel as though inhalers help her thus, I have not written for any inhaled bronchodilators. She had this brief run of atrial fibrillation. She will not be anticoagulated. She should follow u p with Cardiology for consideration of a Holter monitor. This was in the setting of acute illness a nd marked hypothermia. She desires to quit drinking alcohol. She has been given resources. Her daughter is very involved. Notably, she has significant macrocytic anemia as well as some thrombocytopenia. She has had mild electrolyte disorders. On the day of discharge, her sodium is 133 and potassium is 3.3. I have repleted her potassium. Would recommend rechecking her basic metabolic panel in 2 day s. DISPOSITION: She is discharged to residential facility in stable condition. BILLING: I spent more than 30 minutes on the day of discharge coordinating care. /[id number]/MODL
== END 2016-07-17 12:27 | DRG 923 ==
LOC: EDUNIT# → F2N 16:46 → F3E 07-16 13:15
PROVIDERS: ADMIT Surgery; ATTEND Student in an Organized Health Care Education/Training Program
PROC: 02HV33Z Insertion of Infusion Device into Superior Vena Cava, Percutaneous Approach (ICD-10-PCS; principal; 2016-07-14)
DX: T68.XXXA Hypothermia, initial encounter (principal); M62.82 Rhabdomyolysis; F10.239 Alcohol dependence with withdrawal, unspecified; E87.1 Hypo-osmolality and hyponatremia; E87.2 Acidosis; E87.6 Hypokalemia; R09.02 Hypoxemia; E87.70 Fluid overload, unspecified; J44.9 Chronic obstructive pulmonary disease, unspecified; I48.91 Unspecified atrial fibrillation; X31.XXXA Exposure to excessive natural cold, initial encounter; Y92.015 Private garage of single-family (private) house as the place of occurrence of the external cause
CPT/HCPCS: 80307; 82947-QW; 92523-GN; 97110-GP; 97116-GP; 97161-GP; 97165-GO; 97535-GO; G0472; G0480; G8978-GP-CK; G8979-GP-CI; G8987-GO-CL; G8988-GO-CI; G8989-GO-CJ; G9165-GN-CK; G9166-GN-CI; J1650; J2405; J3411

== ENCOUNTER → 2016-08-17 | Outpatient (CLI) | payer OTHER | LOC: BMCIMAGING 14:48 | PROVIDERS: ATTEND Nurse Practitioner Adult Health | DX: I65.23 Occlusion and stenosis of bilateral carotid arteries (principal) ==

== ENCOUNTER → 2016-10-10 | Outpatient (CLI) | payer OTHER ==
[~2016-10-10] MED LIST: IOPAMIDOL (ISOVUE 370) 100 ML BTL IV ONE
== END ==
LOC: FIMAGING 13:36
PROVIDERS: ATTEND Physician Assistant Medical
DX: I65.21 Occlusion and stenosis of right carotid artery (principal); R09.89 Other specified symptoms and signs involving the circulatory and respiratory systems; I48.91 Unspecified atrial fibrillation; Z72.0 Tobacco use
CPT/HCPCS: 70498; Q9967

== ENCOUNTER 2016-10-16 11:33 | Day surgery (SDC) | payer OTHER ==
[2016-10-16] MEDS ORDERED: FAMOTIDINE 20 MG TAB PO ONE (11:36)
[2016-10-16] MEDS ORDERED: ASPIRIN EC 325 MG TAB PO ONE ×2 (11:36→12:03)
[2016-10-16] MEDS ORDERED: DIAZEPAM 5 MG TAB PO ONE (11:36)
[2016-10-16] MEDS ORDERED: diphenhydrAMINE 25 MG CAP PO ONE ×2 (11:36→12:02)
[2016-10-16] MEDS ORDERED: NS 1,000 ML IV ONE (11:36)
--- NOTE | 2016-10-16 12:01 | CPEKG ---
Heart Rate: 93 RR Interval: 645 P-R Interval: 144 QRSD Interval: 64 QT Interval: 368 QTC Interval: 458 P [place]: 68 QRS [place]: 15 T Wave [place]: 45 EKG Severity - OTHERWISE NORMAL ECG - EKG Impression: SINUS RHYTHM EKG Impression: LOW VOLTAGE IN FRONTAL LEADS Electronically Signed By: Gus Crisostomo 16-Oct-2016 17:30:36
[2016-10-16] MEDS ORDERED: DIAZEPAM 5 MG TAB ONE (12:03)
[2016-10-16] MEDS ORDERED: FAMOTIDINE 20 MG TAB ONE (12:03)
[2016-10-16 12:19] LABS: % IMMATURE GRANULYOCYTES 0.3 % (0.0-1.1); ABSOLUTE IMMATURE GRANULOCYTES 0.02 10^3/uL (0.00-0.10); ADD DIFF? NO; ADD MORPH? NO; ADD SCAN? NO; ATYPICAL LYMPHOCYTE FLAG 0 (0-99); FRAGMENT RBC FLAG 0 (0-99); HEMATOCRIT 36.1 % (38.0-47.0); HEMOGLOBIN 12.7 g/dL (12.6-16.3); LEFT SHIFT FLG 0 (0-99); LIPEMIA HEMOLYSIS FLAG 90 (0-99); MEAN CELL HEMOGLOBIN 34.2 pg (27.9-34.1); MEAN CELL HEMOGLOBIN CONCENTR. 35.2 g/dL (32.4-36.7); MEAN CELL VOLUME 97.3 fL (81.5-99.8); MEAN PLATELET VOLUME 8.7 fL (8.7-11.7); PLATELET CLUMPS FLAG 0 (0-99); PLATELET COUNT 181 10^3/uL (150-400); RED BLOOD CELL COUNT 3.71 10^6/uL (4.18-5.33)
[2016-10-16 12:28] LABS: INR 1.11 (0.83-1.16); PROTIME(PATIENT) 14.2 SEC (12.0-15.0)
[2016-10-16 12:45] LABS: ANION GAP 15 mEq/L (8-16); CALCIUM 9.1 mg/dL (8.5-10.4); CARBON DIOXIDE 20 mEq/l (22-31); CHLORIDE 102 mEq/L (97-110); CHOLESTEROL 171 mg/dL (140-220); CHOLESTEROL/HDL RATIO 2.16 RATIO (1.00-4.44); CREATININE 0.7 mg/dL (0.6-1.0); GLOMERULAR FILTRATION RATE > 60; GLUCOSE 100 mg/dL (70-100); HIGH DENSITY LIPOPROTEIN 79 mg/dL (40-85); LDL/HDL RATIO 0.95 RATIO (1.00-3.22); LOW DENSITY LIPOPROTEIN 75 mg/dL (80-100); NON-HIGH DENSITY LIPOPROTEIN 92 mg/dL (90-129); POTASSIUM 4.2 mEq/L (3.5-5.2); SODIUM 137 mEq/L (134-144); TRIGLYCERIDE 86 mg/dL (35-135); VERY LOW DENSITY LIPOPROTEINS 17 mg/dL (8-25)
[2016-10-16] MEDS ORDERED: MAGNESIUM SULF 2 GM/WATER 50 ML IV ONE (13:30)
[2016-10-16] MEDS ORDERED: LIDOCAINE 1% 300 MG/30 ML SDV ONE (13:51)
[2016-10-16] MEDS ORDERED: fentaNYL 100 MCG/2 ML INJ ONE (13:52)
[2016-10-16] MEDS ORDERED: MIDAZOLAM 2 MG/2 ML VIAL ONE (13:52)
[2016-10-16] MEDS ORDERED: IOPAMIDOL (ISOVUE-370) 150 ML BTL IV ONE (13:52)
== END 2016-10-16 15:18 | disposition home or self-care (01) ==
LOC: FCATH 11:33
PROVIDERS: ATTEND Internal Medicine Cardiovascular Disease
DX: R79.0 Abnormal level of blood mineral (principal); Z53.09 Procedure and treatment not carried out because of other contraindication; R93.1 Abnormal findings on diagnostic imaging of heart and coronary circulation; I77.9 Disorder of arteries and arterioles, unspecified; I48.0 Paroxysmal atrial fibrillation; F17.210 Nicotine dependence, cigarettes, uncomplicated; E78.5 Hyperlipidemia, unspecified; I31.3 Pericardial effusion (noninflammatory); Z82.49 Family history of ischemic heart disease and other diseases of the circulatory system; Z86.010 Personal history of colon polyps; Z80.0 Family history of malignant neoplasm of digestive organs
CPT/HCPCS: J1644; J2250; J3010; Q9967

== ENCOUNTER 2016-10-19 09:33 | Inpatient (IN) | payer OTHER ==
[2016-10-19] MEDS ORDERED: DIAZEPAM 5 MG TAB PO ONE (09:41)
[2016-10-19] MEDS ORDERED: NS 1,000 ML IV ONE (09:41)
[2016-10-19] MEDS ORDERED: FAMOTIDINE 20 MG TAB PO ONE (09:41)
[2016-10-19] MEDS ORDERED: diphenhydrAMINE 25 MG CAP PO ONE ×2 (09:41→10:00)
[2016-10-19] MEDS ORDERED: ASPIRIN EC 325 MG TAB PO ONE ×2 (09:41→10:00)
--- NOTE | 2016-10-19 09:57 | CPEKG ---
Heart Rate: 66 RR Interval: 909 P-R Interval: 152 QRSD Interval: 68 QT Interval: 420 QTC Interval: 441 P [place]: 64 QRS [place]: 23 T Wave [place]: 27 EKG Severity - OTHERWISE NORMAL ECG - EKG Impression: SINUS RHYTHM EKG Impression: LOW VOLTAGE IN FRONTAL LEADS Electronically Signed By: Gus Crisostomo 19-Oct-2016 17:34:29
[2016-10-19] MEDS ORDERED: DIAZEPAM 5 MG TAB ONE (10:00)
[2016-10-19] MEDS ORDERED: FAMOTIDINE 20 MG TAB ONE (10:00)
[2016-10-19 10:17] LABS: % IMMATURE GRANULYOCYTES 0.4 % (0.0-1.1); ABSOLUTE IMMATURE GRANULOCYTES 0.02 10^3/uL (0.00-0.10); ADD DIFF? NO; ADD MORPH? NO; ADD SCAN? NO; ATYPICAL LYMPHOCYTE FLAG 10 (0-99); FRAGMENT RBC FLAG 0 (0-99); HEMATOCRIT 33.7 % (38.0-47.0); HEMOGLOBIN 11.7 g/dL (12.6-16.3); LEFT SHIFT FLG 0 (0-99); LIPEMIA HEMOLYSIS FLAG 90 (0-99); MEAN CELL HEMOGLOBIN 33.8 pg (27.9-34.1); MEAN CELL HEMOGLOBIN CONCENTR. 34.7 g/dL (32.4-36.7); MEAN CELL VOLUME 97.4 fL (81.5-99.8); MEAN PLATELET VOLUME 8.9 fL (8.7-11.7); PLATELET CLUMPS FLAG 0 (0-99); PLATELET COUNT 177 10^3/uL (150-400); RED BLOOD CELL COUNT 3.46 10^6/uL (4.18-5.33); RED CELL DISTRIBUTION WIDTH 13.2 % (11.5-15.2)
[2016-10-19 10:32] LABS: INR 1.05 (0.83-1.16); PROTIME(PATIENT) 13.6 SEC (12.0-15.0)
[2016-10-19 10:37] LABS: ANION GAP 13 mEq/L (8-16); CALCIUM 9.3 mg/dL (8.5-10.4); CARBON DIOXIDE 22 mEq/l (22-31); CHLORIDE 100 mEq/L (97-110); CHOLESTEROL 158 mg/dL (140-220); CHOLESTEROL/HDL RATIO 2.19 RATIO (1.00-4.44); CREATININE 0.7 mg/dL (0.6-1.0); GLOMERULAR FILTRATION RATE > 60; GLUCOSE 76 mg/dL (70-100); HIGH DENSITY LIPOPROTEIN 72 mg/dL (40-85); LDL/HDL RATIO 0.93 RATIO (1.00-3.22); LOW DENSITY LIPOPROTEIN 67 mg/dL (80-100); MAGNESIUM 1.5 mg/dL (1.6-2.3); NON-HIGH DENSITY LIPOPROTEIN 86 mg/dL (90-129); SODIUM 135 mEq/L (134-144); TRIGLYCERIDE 98 mg/dL (35-135); VERY LOW DENSITY LIPOPROTEINS 19 mg/dL (8-25)
[2016-10-19] MEDS ORDERED: fentaNYL 100 MCG/2 ML INJ ONE ×2 (11:20→12:56)
[2016-10-19] MEDS ORDERED: IOPAMIDOL (ISOVUE-370) 150 ML BTL IV ONE (11:20)
[2016-10-19] MEDS ORDERED: LIDOCAINE 1% 300 MG/30 ML SDV ONE (11:20)
[2016-10-19] MEDS ORDERED: MIDAZOLAM 2 MG/2 ML VIAL ONE ×3 (11:20→13:36)
[2016-10-19] MEDS ORDERED: MAGNESIUM SULF 2 GM/WATER 50 ML IV ONE (11:30)
[2016-10-19] MEDS ORDERED: BIVALIRUDIN 250 MG/5 ML VIAL IV ONE (13:26)
[2016-10-19] MEDS ORDERED: ADENOSINE 90 MG/30 ML VIAL IV ONE (13:26)
[2016-10-19] MEDS ORDERED: ONDANSETRON 4 MG/2 ML VIAL IVP PRN (15:04)
[2016-10-19] MEDS ORDERED: ATROPINE SULFATE 1 MG/10 ML SYR IVP PRN (15:04)
[2016-10-19] MEDS ORDERED: NITROGLYCERIN 0.4 MG BTL SL PRN (15:04)
[2016-10-19] MEDS ORDERED: OXYCODONE/APAP 5/325 TAB PO PRN (15:04)
--- NOTE | 2016-10-19 15:15 | CPIP ---
[f rep st] INVASIVE CARDIAC PROCEDURE DATE OF PROCEDURE: 10/19/2016 PROCEDURES PERFORMED: 1. Coronary angiography. 2. Fractional flow reserve of left anterior descending coronary artery. INDICATION: The patient is a 76-year-old female, who had a stress test performed in anticipation of carotid endarterectomy. The stress test was notable for inferolateral ischemia as well as transien t ischemic dilation. She was taken to the cardiac catheterization laboratory by Dr. Uvaldo Enriquez. Co ronary angiography demonstrated intermediate grade disease involving the left anterior descending co ronary artery and circumflex coronary artery, as well as high-grade disease involving the right andres nary artery. I was consulted to perform FFR of the left anterior descending coronary artery to see if this distribution was ischemic contributing to the transient ischemic dilation. ACCESS AND CORONARY ANGIOGRAPHY: Performed by Dr. Ori Enriquez. FRACTIONAL FLOW RESERVE OF THE LEFT ANTERIOR DESCENDING CORONARY ARTERY: A 6-Chinese JL4 was advance d to the left main coronary artery, and images obtained. The left main coronary artery bifurcated i nto the LAD and circumflex coronary arteries. The left main coronary artery appeared normal. The l eft anterior descending coronary artery is diffusely diseased. In the proximal segment, there was a segmental 60% to 70% stenosis present, and in the mid vessel, there is a long segmental 50% to 60% stenosis present. The FFR wire was advanced into the distal vessel and position verified by angiogr aphy. FFR was obtained after infusion of IV adenosine. The FFR was 0.73, indicating flow limitatio n. COMPLICATIONS: None. CONCLUSIONS: 1. Flow-limiting disease involving the left anterior descending coronary artery. 2. Plan is for surgical evaluation. /[id number]/MODL
[2016-10-19] MEDS ORDERED: MUPIROCIN 2% 22 GM OINT NS ONE (15:55)
--- NOTE | 2016-10-19 19:01 | GCON ---
[f rep st] CONSULTATION DATE OF CONSULTATION: 10/19/2016 REFERRING PHYSICIAN: The patient was seen at request of Dr. Uvaldo Enriquez and Shilpa Reinoso. IMPRESSION: 1. Severe 3-vessel disease with normal left ventricular function. 2. Chronic obstructive pulmonary disease secondary to chronic cigarette abuse, ongoing. 3. History of moderate to severe alcohol abuse, discontinued a year prior. 4. Peripheral vascular and cerebrovascular disease with evidence of 75% right internal carotid and 50% left internal carotid artery stenosis, asymptomatic. 5. Paroxysmal atrial fibrillation, single episode, following alcoholic binge. 6. Psoriasis. 7. Osteopenia. 8. Insomnia. RECOMMENDATIONS: The patient represents a moderate increased risk for coronary artery revasculariza tion. Her arterial tree is not amenable to complete revascularization by stenting, and is being ref erred for surgical intervention. Risks and complications including stroke, bleeding, infection, hea rt attack, and were reviewed at length with the patient and her daughter. She agrees to proce ed with surgery. We will schedule in the morning. CHIEF COMPLAINT: A 76-year-old female, who under diagnostic evaluation was found to have a carotid bruit. Subsequent evaluations determined that she had a 75% right and 50% left internal carotid art charissa obstruction. She underwent noninvasive testing in anticipation of carotid endarterectomy, was f ound to have a large area of ischemia. She underwent diagnostic left heart catheterization today an d was found to have normal LV function with significant left ventricular hypertrophy and severe 3-ve ssel disease, not easily treated with stenting. MEDICAL HISTORY: As stated. Surgeries include colon polyps. ALLERGIES: Denied. SOCIAL HISTORY: She lives alone, lives independently, has a single daughter who is supportive and l kasey close. REVIEW OF SYSTEMS: At the present time, she is resting comfortably. She denies any significant com plaints. A 10-point system was reviewed. Of note, in the CARDIAC: She does not have angina but sh e does get fatigued with ambulating more than a block, particularly in her legs, consistent with cla udication. PHYSICAL EXAMINATION: GENERAL APPEARANCE: A slender elderly female, very pleasant and cooperative. VITAL SIGNS: Blood pressure is 140/76, heart rate 70. HEENT: Normocephalic, PERRLA, EOMI. NECK : Without bruit, adenopathy or thyromegaly. HEART: Rate is regular without murmur, S3 or S4. NATALIA GS: Clear with increased AP diameter. ABDOMEN: Scaphoid. No palpable mass. Bowel sounds are act jessica. RECTAL AND GENITAL: Deferred. NEUROLOGIC: She is oriented x3. Mood and affect are appropri ate. /[id number]/MODL
[2016-10-19 20:26] LABS: ALBUMIN 3.9 g/dL (3.5-5.0); BILIRUBIN,TOTAL 0.7 mg/dL (0.1-1.4); BILIRUBIN-CONJUGATED 0.4 mg/dL (0.0-0.5); BILIRUBIN-UNCONJUGATED 0.3 mg/dL (0.0-1.1); TOTAL PROTEIN 6.5 g/dL (6.3-8.2)
[2016-10-19] MEDS ORDERED: CHLORHEXIDINE GLUC HIBICLENS 118 ML BTL TP SCH (21:00)
[2016-10-19] MEDS: MUPIROCIN 2% 22 GM OINT NS SCH (21:33)
[2016-10-19] MEDS ORDERED: ZOLPIDEM TARTRATE 5 MG TAB PO ONE (22:15)
[2016-10-20 04:31] LABS: ANION GAP 7 mEq/L (8-16); CALCIUM 9.3 mg/dL (8.5-10.4); CARBON DIOXIDE 23 mEq/l (22-31); CHLORIDE 101 mEq/L (97-110); CREATININE 0.7 mg/dL (0.6-1.0); GLOMERULAR FILTRATION RATE > 60; GLUCOSE 97 mg/dL (70-100); POTASSIUM 4.7 mEq/L (3.5-5.2); SODIUM 131 mEq/L (134-144)
[2016-10-20] MEDS ORDERED: MUPIROCIN 2% 22 GM OINT NS ONE (06:00)
[2016-10-20] MEDS ORDERED: ALBUMIN 5% 250 ML BOTTLE IV ONE (06:31)
[2016-10-20] MEDS ORDERED: AMINOCAPROIC ACID 5 GM/20 ML VIAL ONE (06:31)
[2016-10-20] MEDS ORDERED: CALCIUM CHLORIDE 1 GM/10 ML INJ ONE (06:31)
[2016-10-20] MEDS ORDERED: LIDOCAINE 2% 100 MG/5 ML SYR ONE (06:31)
[2016-10-20] MEDS ORDERED: DOPamine/DEXTROSE/250 ML BAG IV ONE (06:31)
[2016-10-20] MEDS ORDERED: POTASSIUM Cl (KCl) 20 MEQ/50 ML BAG IV ONE (06:31)
[2016-10-20] MEDS ORDERED: ADENOSINE 6 MG/2 ML VIAL ONE (06:31)
[2016-10-20] MEDS ORDERED: AMIODARONE HCL 150 MG/3 ML VIAL ONE (06:31)
[2016-10-20] MEDS ORDERED: PROTAMINE SULFATE 50 MG/5 ML VIAL IVP ONE ×2 (06:31→10:26)
[2016-10-20] MEDS ORDERED: CITRATE DEXTROSE SOLN 500 ML BAG ONE (06:31)
[2016-10-20] MEDS ORDERED: MILRINONE/DEXTROSE/100 ML BAG IV ONE (06:31)
[2016-10-20] MEDS ORDERED: niCARdipine/NACL/200 ML BAG IV ONE (06:31)
[2016-10-20] MEDS ORDERED: NA BICARBONATE 50 MEQ/50 ML VIAL ONE (06:31)
[2016-10-20] MEDS ORDERED: methylPREDNISolone SOD SUCC 1 GM/8 ML VIAL ONE (06:32)
[2016-10-20] MEDS ORDERED: MAGNESIUM SULFATE 1 GM/2 ML VIAL ONE (06:32)
[2016-10-20] MEDS ORDERED: HEPARIN 10,000 UNIT/10 ML MDV ONE (06:32)
[2016-10-20] MEDS ORDERED: ceFAZolin 1 GM VIAL ONE (06:32)
--- NOTE | 2016-10-20 09:09 | PDCARPN ---
Cardiology Progress Note Assessment/Plan: Assessment: 1. Severe 3 vessel CAD 2. bilateral carotid disease 3. Peripheral vascular disease 4. Hx of smoking (quit in 2016) 5. Hx of alcoholism 6. Hypomagnesemia Plan: -CABG today with Dr. Allen -recommend continued Magnesium Oxide 400 mg daily 10/20/16 09:05 Subjective: Trina is doing well this am. no evens overnight. Hemodynamicaly stable. Groin site without hematoma. Time Spent With Patient: 15 minutes Objective: Vital Signs (8 Hrs) Temp Pulse Resp BP Pulse Ox 10/20/16 07:48 37.0 C 78 15 109/62 98 10/20/16 04:00 36.6 C 107 H 16 143/55 H 95 Intake/Output (24 Hrs) 10/19/16 10/20/16 10/21/16 05:59 05:59 05:59 Intake Total 300 Balance 300 Intake: Oral (ml) 300 Other: Weight 49.5 kg Number of Voids Toilet 2 1 Result Diagrams: 10/19/16 10:10 10/20/16 03:22 - Physical Exam Constitutional: WDWN Ears, Nose, Mouth, Throat: moist mucous membranes Cardiovascular: regular rate and rhythm, no murmurs, no rubs, no gallops Respiratory: clear to auscultate bilat Neurologic: AAOx3, CN II-XII grossly intact Psychiatric: cooperative, interactive ICD10 Worksheet Patient Problems: Problems Problem Status Onset Alcohol abuse Acute Altered mental status Acute Atrial fibrillation Acute Hypothermia Acute
[2016-10-20] MEDS: MUPIROCIN 2% 22 GM OINT NS SCH ×2 (09:44→21:47)
[2016-10-20] MEDS ORDERED: ceFAZolin 2 GM/DEXTROSE 100 ML IV ONE (10:00)
[2016-10-20] MEDS ORDERED: INSULIN REGULAR HUMAN 100 UNIT in NS 100 ML IV ONE (10:00)
[2016-10-20] MEDS ORDERED: VERAPAMIL 5 MG, NITROGLYCERIN 2.5 MG, HEPARIN 500 UNIT, SODIUM BICARBONATE 0.2 MEQ in L... MISC ONE (10:00)
[2016-10-20] MEDS ORDERED: AMINOCAPROIC ACID 5 GM/20 ML VIAL IV ONE (10:00)
[2016-10-20] MEDS ORDERED: CITRATE DEXTROSE SOLN 500 ML BAG MISC ONE (10:00)
[2016-10-20] MEDS ORDERED: NOREPINEPHRINE BITARTRATE 16 MG in NS 250 ML IV ONE (10:00)
[2016-10-20] MEDS ORDERED: niCARdipine/NACL 200 ML IV SCH (10:00)
[2016-10-20] MEDS ORDERED: SODIUM BICARBONATE 20 MEQ, LIDOCAINE 1% 10 ML in NORMOSOL-R 1,000 ML MISC ONE (10:00)
[2016-10-20] MEDS ORDERED: PHENYLEPHRINE HCL 50 MG in NS 250 ML IV ONE (10:00)
[2016-10-20] MEDS ORDERED: MANNITOL 25% 12.5 GM/50 ML VIAL IV ONE (10:00)
[2016-10-20] MEDS ORDERED: MIDAZOLAM 2 MG/2 ML VIAL IVP ONE (11:29)
[2016-10-20] MEDS ORDERED: PROPOFOL/EMULSION 500 MG/50 ML BOTTLE IV ONE (11:31)
--- NOTE | 2016-10-20 11:31 | PDANEPAE ---
ANE History of Present Illness here for cabg ANE Past Medical History - Cardiovascular History Hx Hypertension: No Hx Arrhythmias: Yes Hx Chest Pain: Yes Hx Coronary Artery / Peripheral Vascular Disease: Yes Hx CHF / Valvular Disease: No Hx Palpitations: Yes - Pulmonary History Hx COPD: Yes Hx Asthma/Reactive Airway Disease: No Hx Recent Upper Respiratory Infection: No Hx Oxygen in Use at Home: No Hx Sleep Apnea: No Sleep Apnea Screening Result - Last Documented: Negative - Neurologic History Hx Cerebrovascular Accident: No Hx Seizures: No Hx Dementia: No - Endocrine History Hx Diabetes: No Hypothyroid: No Hyperthyroid: No - Renal History Hx Renal Disorders: No - Liver History Hx Hepatic Disorders: No - Neurological & Psychiatric Hx Hx Neurological and Psychiatric Disorders: No - Cancer History Hx Cancer: No - Congenital Disorder History Hx Congenital Disorders: No - GI History Hx Gastrointestinal Disorders: No - Other Health History Other Health History: NONE - Chronic Pain History Chronic Pain: No - Surgical History Prior Surgeries: DRAINAGE EYE WITH STENT 2005, CATARACT 1992, C SECTION X1, ANE Review of Systems Review of systems is: negative - Exercise capacity Exercise capacity: <4 METS ANE Patient History - Allergies Allergies/Adverse Reactions: diphenhydramine [From Benadryl] Allergy (Mild, Verified 10/19/16 11:08) hyperness, agitation - Home Medications Home medications: home medication list seen and reviewed Home Medications: Aspirin EC [Aspirin EC 81 mg (*)] 81 mg PO DAILY 10/16/16 [Last Taken 10/18/16] Atorvastatin Calcium [Lipitor 10 mg (*)] 10 mg PO DAILY 10/16/16 [Last Taken 05/05] Cholecalciferol Vit D3 [Vitamin D3 (*)] 2,000 units PO DAILY 10/16/16 [Last Taken 10/18/16] Melatonin 10 mg PO HS 10/16/16 [Last Taken 10/18/16] traZODone [traZODONE 50MG (*)] 50 mg PO HS 10/16/16 [Last Taken 10/18/16] Clobetasol 0.05% [Temovate Ointment] 1 emre TP BID PRN 10/19/16 [Last Taken 10/18] Magnesium Oxide [Magnesium Oxide 400 mg (*)] 400 mg PO BID 10/19/16 [Last Taken 10/19/16] - NPO status NPO Status: no food or drink >8 hours NPO Since - Liquids (Date): 10/20/16 NPO Since - Liquids (Time): 00:00 NPO Since - Solids (Date): 10/20/16 NPO Since - Solids (Time): 00:00 - Smoking Hx Smoking Status: Former smoker - Family Anes Hx Family Hx Anesthesia Complications: NONE ANE Labs/Vital Signs - Labs Result Diagrams: 10/19/16 10:10 10/20/16 03:22 - Vital Signs Blood Pressure: 109/62 Heart Rate: 66 Respiratory Rate: 16 O2 Sat (%): 99 Height: 155 cm Weight: 49.5 kg ANE Physical Exam - Airway Neck exam: FROM Mallampati Score: Class 1 Mouth exam: normal dental/mouth exam - Pulmonary Pulmonary: no respiratory distress - Cardiovascular Cardiovascular: regular rate and rhythym - ASA Status ASA Status: IV ANE Anesthesia Plan Anesthesia Plan: general endotracheal anesthesia Lines/Monitors: arterial line, central line
[2016-10-20] MEDS ORDERED: MINERAL OIL 10 ML VIAL ONE (11:38)
[2016-10-20] MEDS ORDERED: PAPAVERINE HCL 60 MG/2 ML SDV ONE (11:38)
[2016-10-20] MEDS ORDERED: VERAPAMIL 5 MG/2 ML VIAL ONE (11:38)
[2016-10-20] MEDS ORDERED: MIDAZOLAM 2 MG/2 ML VIAL ONE (11:44)
[2016-10-20] MEDS ORDERED: fentaNYL 100 MCG/2 ML INJ ONE ×2 (11:47)
[2016-10-20] MEDS ORDERED: HYDROmorphONE/DILAUDID 2 MG/ML INJ ONE ×2 (12:54→13:40)
[2016-10-20] MEDS ORDERED: MAGNESIUM SULF 2 GM/WATER 50 ML BAG IV ONE (14:06)
[2016-10-20] MEDS ORDERED: PROPOFOL 200 MG/20 ML VIAL ONE (15:48)
--- NOTE | 2016-10-20 15:53 | POSTOPPROG ---
Post Op Note Date of Operation: 10/20/16 Surgeon: Ori Allen [employer] Instructor: Josiah Anesthesiologist: Les Anesthesia: GET(General Endotracheal) Pre-op Diagnosis: ASHD Procedure: CAB 2 Lozano-Lad, SVG-Rca, EVH, Atriclip Inf/Abcess present in the surg proc area at time of surgery?: No EBL: Minimal Complications: Cx not grafted, poor quality vessel Drains: Other (3 blakes)
[2016-10-20] MEDS ORDERED: MEPERIDINE 25 MG/ML SYR IVP PRN (15:59)
[2016-10-20] MEDS ORDERED: ACETAMINOPHEN 650 MG SUPP PR PRN (15:59)
[2016-10-20] MEDS ORDERED: D50W 25 GM/50 ML SYR IVP PRN (15:59)
[2016-10-20] MEDS ORDERED: METOCLOPRAMIDE 10 MG/2 ML VIAL IVP PRN (15:59)
[2016-10-20] MEDS ORDERED: SODIUM CL NASAL 45 ML BTL EACHNARE PRN (15:59)
[2016-10-20] MEDS ORDERED: MAGNESIUM HYDROXIDE 30 ML UDCUP PO PRN (15:59)
[2016-10-20] MEDS ORDERED: POTASSIUM Cl (KCl) 50 ML IV PRN (15:59)
[2016-10-20] MEDS ORDERED: ONDANSETRON DISINTEGRATING 4 MG TAB PO PRN (15:59)
[2016-10-20] MEDS ORDERED: POLYETHYLENE GLYCOL 3350 17 GM PKT PO PRN (15:59)
[2016-10-20] MEDS ORDERED: ACETAMINOPHEN 325 MG TAB PO PRN (15:59)
[2016-10-20] MEDS ORDERED: LACTULOSE 20 GM/30 ML UDCUP PO PRN (15:59)
[2016-10-20] MEDS ORDERED: ALBUMIN 5% 250 ML IV PRN (15:59)
[2016-10-20] MEDS ORDERED: CEPACOL LOZENGE PO PRN (15:59)
[2016-10-20] MEDS ORDERED: BISACODYL 10 MG SUPP PR PRN (15:59)
[2016-10-20] MEDS ORDERED: MAGNESIUM SULF 2 GM/WATER 50 ML IV ONE (15:59)
[2016-10-20] MEDS ORDERED: PANTOPRAZOLE SODIUM 40 MG in NS 100 ML IV ONE (15:59)
[2016-10-20] MEDS ORDERED: INSULIN REGULAR HUMAN 100 UNIT in NS 100 ML IV SCH (16:00)
[2016-10-20] MEDS ORDERED: NS 1,000 ML IV SCH (16:00)
[2016-10-20] MEDS ORDERED: IPRATROPIUM/ALBUTEROL 3 ML DEYVIAL IH PRN (16:08)
[2016-10-20] MEDS ORDERED: LORazepam 2 MG/ML INJ IVP PRN ×2 (16:09)
[2016-10-20] MEDS ORDERED: THIAMINE HCL 500 MG in NS 100 ML IV ONE (16:09)
[2016-10-20] MEDS ORDERED: HALOPERIDOL LACT 5 MG/ML INJ IVP PRN (16:09)
[2016-10-20] MEDS ORDERED: BENZTROPINE MESYLATE 2 MG/2 ML INJ IM PRN (16:14)
--- NOTE | 2016-10-20 16:53 | POSTANESTH ---
Post Anesthetic Evaluation Cardiovascular Status: Normal, Stable Respiratory Status: Other, See Comment (intubated) Level of Consciousness/Mental Status: Moderately Sleepy Pain Control: Adequate, Prn Tx Ordered Nausea/Vomiting Control: Adequate, Prn Tx Ordered Complications Possibly Related to Anesthesia: None Noted
--- NOTE | 2016-10-20 16:59 | GOP ---
[f rep st] OPERATIVE REPORT DATE OF OPERATION: 10/20/2016 SURGEON: Ori Allen DO FENCE GATE ASSEMBLER: WILLIAM Will ANESTHESIOLOGIST: Santhosh Saldana MD. PREOPERATIVE DIAGNOSIS: Arteriosclerotic heart disease. POSTOPERATIVE DIAGNOSIS: Arteriosclerotic heart disease. PROCEDURE PERFORMED: 1. Coronary artery bypass grafting x2 with left internal mammary artery to the left anterior descen ding artery, saphenous vein graft to the right coronary artery. 2. Endoscopic vein harvest. 3. AtriClip to the left atrial appendage. FINDINGS: The patient is known to have normal LV function with diffuse small vessel disease. She w as consented for surgery after being felt to be too high risk for stenting. DESCRIPTION OF PROCEDURE: She was consented, brought to the operating room, intubated. Monitoring lines were placed. She was prepped and draped in sterile classical manner. Sternotomy was performe d. Good quality mammary artery was harvested off the left chest wall, measured 2.2 mm with brisk fl ow. The aorta was without thickening or calcification. She was cannulated after heparinization. C ardiopulmonary bypass was begun. A Cardioplegic arrest was obtained with antegrade cardioplegia, to pical hypothermia and systemic cooling. Initially, we began evaluating the circumflex vessel; it wa s at most a 1.5 mm vessel; however, it was circumferentially a cord with inflammatory changes in the wall and no obvious lumen that could be opened safely. I was concerned that it would be a millimet er at most, and not likely to remain patent with a risk of causing infarction. For that reason, we did not graft the circumflex. We then grafted a poor quality right coronary artery just after the takeoff of the marginal right ju st beyond the narrowing, prior to the PDA. It was a 2 mm vessel; however, severely calcified on the posterior wall with diffuse lesions throughout its course. Excellent quality vein was grafted end- to-side, then brought off the ascending aorta with a cross-clamp on. Rewarming was begun while the mammary was grafted to the only segment in the middle LAD that had a soft anterior wall. This was o pened, the plaque was circumferential except on the anterior wall in that area. My 1 mm probe had d ifficulty passing proximally and distally. The mammary was grafted to that vessel and tacked to the epicardium. The cross-clamp was removed with suction on the ascending aortic vent. Spontaneous cardiac activity was noted to resume. The patient was rewarmed, weaned from bypass. Heparin was reversed with prot amine. The cannula was removed and oversewn. Two pleural mediastinal drains were placed. Ventricu lar wires were placed. The chest was closed in standard fashion. Patient was returned to ICU in st able condition. /[id number]/MODL
--- NOTE | 2016-10-20 17:00 | CPEKG ---
Heart Rate: 91 RR Interval: 659 P-R Interval: 164 QRSD Interval: 88 QT Interval: 400 QTC Interval: 493 P [place]: 77 QRS [place]: -75 T Wave [place]: 95 EKG Severity - ABNORMAL ECG - EKG Impression: SINUS RHYTHM EKG Impression: LEFT ANTERIOR FASCICULAR BLOCK EKG Impression: ABNORMAL R WAVE PROGRESSION. CONSIDER ANTERIOR INFARCTION. EKG Impression: NONSPECIFIC T ABNORMALITIES, LATERAL LEADS EKG Impression: BORDERLINE PROLONGED QT INTERVAL Electronically Signed By: Gus Crisostomo 20-Oct-2016 20:32:45
[2016-10-20] MEDS: fentaNYL 100 MCG/2 ML INJ IVP PRN ×2 (19:42→23:18)
[2016-10-20 20:28] LABS: CALCULATED OXYGEN SATURATION 99 % (92-95); O2 CONCENTRATIION 40 % (0-100)
[2016-10-20] MEDS ORDERED: traZODone 50 MG TAB PO SCH (21:00)
[2016-10-20] MEDS: ONDANSETRON 4 MG/2 ML VIAL IVP PRN (21:46)
[2016-10-20] MEDS: ceFAZolin 2 GM/DEXTROSE 100 ML IV SCH (21:46)
[2016-10-21 02:06] LABS: HEMATOCRIT 26.3 % (38.0-47.0); HEMOGLOBIN 9.2 g/dL (12.6-16.3); MEAN CELL HEMOGLOBIN 33.8 pg (27.9-34.1); MEAN CELL VOLUME 96.7 fL (81.5-99.8); RED BLOOD CELL COUNT 2.72 10^6/uL (4.18-5.33); RED CELL DISTRIBUTION WIDTH 15.1 % (11.5-15.2)
[2016-10-21 03:47] LABS: CALCULATED OXYGEN SATURATION 90 % (92-95); O2 CONCENTRATIION 30 % (0-100)
[2016-10-21 05:51] LABS: % IMMATURE GRANULYOCYTES 0.6 % (0.0-1.1); ABSOLUTE IMMATURE GRANULOCYTES 0.08 10^3/uL (0.00-0.10); ADD DIFF? NO; ADD MORPH? NO; ADD SCAN? NO; ATYPICAL LYMPHOCYTE FLAG 0 (0-99); FRAGMENT RBC FLAG 0 (0-99); HEMATOCRIT 28.5 % (38.0-47.0); HEMOGLOBIN 9.9 g/dL (12.6-16.3); LEFT SHIFT FLG 10 (0-99); LIPEMIA HEMOLYSIS FLAG 90 (0-99); MEAN CELL HEMOGLOBIN 33.7 pg (27.9-34.1); MEAN CELL HEMOGLOBIN CONCENTR. 34.7 g/dL (32.4-36.7); MEAN CELL VOLUME 96.9 fL (81.5-99.8); MEAN PLATELET VOLUME 9.2 fL (8.7-11.7); PLATELET CLUMPS FLAG 10 (0-99); PLATELET COUNT 90 10^3/uL (150-400); RED BLOOD CELL COUNT 2.94 10^6/uL (4.18-5.33); RED CELL DISTRIBUTION WIDTH 15.4 % (11.5-15.2)
[2016-10-21] MEDS: HEPARIN 5,000 UNIT/0.5 ML SYR SC SCH ×3 (05:56→21:07)
[2016-10-21] MEDS: ceFAZolin 2 GM/DEXTROSE 100 ML IV SCH ×3 (05:59→21:07)
[2016-10-21 06:13] LABS: ANION GAP 11 mEq/L (8-16); CALCIUM 8.5 mg/dL (8.5-10.4); CARBON DIOXIDE 22 mEq/l (22-31); CHLORIDE 106 mEq/L (97-110); CREATININE 0.6 mg/dL (0.6-1.0); GLOMERULAR FILTRATION RATE > 60; GLUCOSE 107 mg/dL (70-100); MAGNESIUM 1.9 mg/dL (1.6-2.3); POTASSIUM 4.1 mEq/L (3.5-5.2); SODIUM 139 mEq/L (134-144)
[2016-10-21 06:14] LABS: CALCULATED OXYGEN SATURATION 97 % (92-95); O2 CONCENTRATIION 40 % (0-100)
[2016-10-21 07:24] LABS: HEMATOCRIT 27.8 % (38.0-47.0); HEMOGLOBIN 9.5 g/dL (12.6-16.3); MEAN CELL HEMOGLOBIN 33.5 pg (27.9-34.1); MEAN CELL HEMOGLOBIN CONCENTR. 34.2 g/dL (32.4-36.7); MEAN CELL VOLUME 97.9 fL (81.5-99.8); RED BLOOD CELL COUNT 2.84 10^6/uL (4.18-5.33); RED CELL DISTRIBUTION WIDTH 15.4 % (11.5-15.2)
--- NOTE | 2016-10-21 07:56 | SOAPPROG ---
SOAP Progress Note Assessment/Plan: Assessment: POD#1 CABG x 2 (DAMICO-LAD, SV-RCA), EVH rt thigh, prophylactic AtriClip ligation left atrial appendage Sx severe CAD w preserved LV systolic fx - s/p CABG. Hemodynamically stable early postop course. Intermittent low dose nicardipine for elev BP. No tachycardia or sustained backup pacing. Adequately autodiuresing moderate volume overload. Secondary prevention with ASA, BB as tolerated, and statin when eating well. Acute expected blood loss anemia with thrombocytopenia - Stable s/p 2u PRBC. No evidence active bleeding. Care w VTE prophylaxis while platelets depressed. PVD - Moderate bilat carotid disease with asx 75% DEL stenosis, anticipating CEA. Stable. No apparent postop neuro deficits. Tobacco abuse - 50 pk yr hx, current someday smoker. Suspected COPD. Extubated without incident. Pulm following. Mucolytics, bronchodilators prn. Hx of ETOH abuse - CIWA protocol, wine with meals. Plan: Routine POD#1 orders re lines, drains, orals and mobility. Start metoprolol 12.5 mg BID when oral intake cleared by ORDER BUILDER LOADER. Monitor in ICU 1 more day. 10/21/16 07:55 Subjective: Doing ok. A little woozy earlier with mobility. Incisional discomfort currently controlled. No nausea. Objective: Vital Signs Temp Pulse Resp BP Pulse Ox 36.3 C 97 16 136/62 H 98 10/21/16 06:00 10/21/16 06:00 10/21/16 06:00 10/21/16 06:00 10/21/16 06:00 Laboratory Results 10/21/16 07:08 10/21/16 05:33 10/20/16 10/21/16 10/22/16 05:59 05:59 05:59 Intake Total 300 2651 Output Total 2230 Balance 300 421 PT 13.6 SEC (12.0-15.0) 10/19/16 10:10 INR 1.05 (0.83-1.16) 10/19/16 10:10 Extubated earlier this am without incident. Min suppl O2 req, currently @1 Lpm. Transiently Vpaced early postop for SB. No pacing overnoc, holding rates > 70. Intermittently tachy 100s. SBP labile. Hypotensive with initial attempts OOB, becoming hypertensive when settled. Currently on nicardipine at 1 mg/hr. Excellent UOP w CVP 12-14. CXR-> no PTX, no pulm vasc congestion, no undrained effusions CTOP moderate, drainage thin, + AL w cough. Labs as expected. Physical Exam - Physical Exam General Appearance: alert, no apparent distress Respiratory: decreased breath sounds (bases, o/w CTA), other (blakes y-d to pleurovac, serosang drainage, small tidal, 1 chamber AL w cough) Cardiac/Chest: regular rate, rhythm, other (Sternotomy CDI, V wires intact) Abdomen: non-tender, soft Skin: warm/dry Extremities: swelling (trace), other (left thigh wrap intact) ICD10 Worksheet Patient Problems: Problems Problem Status Onset Acute blood loss anemia Acute CAD in [place] artery Acute S/P CABG x 2 Acute ~10/20/16 Alcohol abuse Acute Altered mental status Acute Atrial fibrillation Acute Hypothermia Acute
--- NOTE | 2016-10-21 09:38 | GCON ---
[f rep st] CONSULTATION RUBBER GOODS FINISHER CONSULTATION Patient examined postoperatively after receiving coronary artery bypass graft and ligation of left a trial appendage. HISTORY OF PRESENT ILLNESS: The patient is a very pleasant 76-year-old white female with extensive past medical history, including chronic obstructive pulmonary disease, tobacco abuse, previous alcoh ol abuse, peripheral vascular disease, atrial fibrillation, psoriasis. She was examined postoperati vely after receiving coronary bypass graft. In discussion, the patient states that with the excepti on of her chest pain, she is doing quite well. She denies any shortness of breath, cough or product ion of sputum. There is no fever or night sweats. She is currently resting comfortably. PAST MEDICAL HISTORY: Again seen for chronic obstructive pulmonary disease, peripheral vascular dis ease, atrial fibrillation, psoriasis, osteopenia, tobacco abuse, and coronary artery disease. ALLERGIES: No allergies to medications. SOCIAL HISTORY: She is a 50+ pack-year smoker and continues to smoke. No alcohol use currently. S he lives alone. She has a daughter who is very supportive. PHYSICAL EXAM: VITAL SIGNS: Blood pressure is 136/62, pulse 97, respirations 16, temperature 36.3, oxygen saturation 98% on 1 L. GENERAL: She is a well-developed, elderly white female who is resti ng comfortably, in no acute distress. HEENT: Eyes: PERRL, EOMI. Throat shows no erythema or tons illar hypertrophy. NECK: Supple. There is no cervical adenopathy. HEART: Irregular/irregular wi th a 2/6 systolic murmur at the left sternal border, without radiation. LUNGS: Diminished breath s ounds and a prolongation expiratory phase. There is no wheeze at this time. ABDOMEN: Soft, nonten analisa. Bowel sounds are present in all 4 quadrants. EXTREMITIES: No clubbing, cyanosis, or edema. LABORATORY DATA: White count 12, hemoglobin 9.5, hematocrit 27. Platelet count is 94. Sodium 141, potassium 4.2, chloride 103. CO2 is 22. BUN is 7, creatinine 0.6. Glucose is 107. Arterial bloo d gas, pH 7.33, pCO2 43, pO2 of 96, bicarb 23, oxygen saturation 98%. This is on FiO2 of 40%. IMPRESSION: 1. Coronary artery disease. 2. Status post coronary artery bypass graft. 3. Chronic obstructive pulmonary disease. 4. Tobacco abuse. 5. Atrial fibrillation. 6. Osteopenia. RECOMMENDATIONS: 1. Continue adequate pain control. 2. Frequent nebulization of both albuterol and Atrovent. 3. Aggressive blood sugar control. 4. DVT and PE prophylaxis, holding anticoagulation for now. 5. Stress ulcer prophylaxis. 6. Early ambulation. 7. PT and OT. /[id number]/MODL
[2016-10-21] MEDS ORDERED: traMADol 50 MG TAB PO PRN (11:00)
[2016-10-21] MEDS ORDERED: RED WINE 120 ML BOTTLE PO SCH (12:00)
[2016-10-21] MEDS: ASPIRIN EC 81 MG TAB PO SCH (13:47)
[2016-10-21] MEDS: METOPROLOL TARTRATE 25 MG TAB PO SCH ×2 (13:47→21:04)
[2016-10-21] MEDS: HYDROCODONE/APAP 5/325 TAB PO PRN ×2 (13:47→19:24)
[2016-10-21 14:05] LABS: POTASSIUM 4.3 mEq/L (3.5-5.2)
[2016-10-21] MEDS: PANTOPRAZOLE SODIUM 40 MG TAB PO SCH (15:22)
[2016-10-21] MEDS: THIAMINE HCL 100 MG TAB PO SCH (15:22)
[2016-10-21] MEDS: FOLIC ACID 1 MG TAB PO SCH (15:22)
[2016-10-21] MEDS: MUPIROCIN 2% 22 GM OINT NS SCH ×2 (15:22→21:26)
[2016-10-21] MEDS: WHITE WINE 120 ML BOTTLE PO SCH ×2 (17:47→21:08)
[2016-10-21 18:31] LABS: POTASSIUM 4.5 mEq/L (3.5-5.2)
[2016-10-21] MEDS: SENNOSIDES/DOCUSATE SODIUM TAB PO SCH (19:26)
[2016-10-21] MEDS ORDERED: ALBUMIN 5% 250 ML IV ONE (20:30)
[2016-10-21] MEDS: traZODone 50 MG TAB PO SCH (22:20)
[2016-10-22] MEDS: HYDROCODONE/APAP 5/325 TAB PO PRN ×5 (00:17→20:45)
[2016-10-22 06:04] LABS: % IMMATURE GRANULYOCYTES 0.6 % (0.0-1.1); ABSOLUTE IMMATURE GRANULOCYTES 0.06 10^3/uL (0.00-0.10); ADD DIFF? NO; ADD MORPH? NO; ADD SCAN? NO; ATYPICAL LYMPHOCYTE FLAG 0 (0-99); FRAGMENT RBC FLAG 0 (0-99); HEMATOCRIT 26.7 % (38.0-47.0); HEMOGLOBIN 8.8 g/dL (12.6-16.3); LEFT SHIFT FLG 0 (0-99); LIPEMIA HEMOLYSIS FLAG 80 (0-99); MEAN CELL HEMOGLOBIN 33.2 pg (27.9-34.1); MEAN CELL VOLUME 100.8 fL (81.5-99.8); MEAN PLATELET VOLUME 9.8 fL (8.7-11.7); PLATELET CLUMPS FLAG 0 (0-99); PLATELET COUNT 76 10^3/uL (150-400); RED BLOOD CELL COUNT 2.65 10^6/uL (4.18-5.33); RED CELL DISTRIBUTION WIDTH 15.9 % (11.5-15.2)
[2016-10-22] MEDS: ceFAZolin 2 GM/DEXTROSE 100 ML IV SCH (06:33)
[2016-10-22 06:38] LABS: ANION GAP 6 mEq/L (8-16); CALCIUM 8.6 mg/dL (8.5-10.4); CARBON DIOXIDE 24 mEq/l (22-31); CHLORIDE 102 mEq/L (97-110); CREATININE 0.7 mg/dL (0.6-1.0); GLOMERULAR FILTRATION RATE > 60; GLUCOSE 124 mg/dL (70-100); MAGNESIUM 1.7 mg/dL (1.6-2.3); POTASSIUM 4.6 mEq/L (3.5-5.2); SODIUM 132 mEq/L (134-144)
[2016-10-22] MEDS: HEPARIN 5,000 UNIT/0.5 ML SYR SC SCH (06:49)
--- NOTE | 2016-10-22 09:04 | PDINTPN ---
Quality Worker Progress Note Assessment/Plan: Assessment/plan: * Coronary artery disease * COPD-continue nebs * Status post coronary bypass graft * Peripheral vascular disease * Atrial fibrillation-rate controlled * Pain-well controlled * Nutrition-none. Awaiting speech eval * VTE prophylaxis * Stress ulcer prophylaxis Overall markedly improved. Subjective: Up in chair. States she is tired. Denies breathlessness. Chest pain is well controlled Objective: Vital Signs Temp Pulse Resp BP Pulse Ox 37.1 C 85 14 126/60 H 96 10/21/16 12:00 10/22/16 06:00 10/22/16 06:00 10/22/16 06:00 10/22/16 06:00 Laboratory Results 10/22/16 05:40 10/22/16 05:40 10/21/16 10/22/16 10/23/16 05:59 05:59 05:59 Intake Total 2651 480 Output Total 2230 1790 Balance 421 -1310 PT 13.6 SEC (12.0-15.0) 10/19/16 10:10 INR 1.05 (0.83-1.16) 10/19/16 10:10 Physical Exam - Physical Exam General Appearance: WD/WN, alert, no apparent distress EENT: PERRL/EOMI, normal ENT inspection, pharynx normal, TMs normal Neck: non-tender, full range of motion, supple, normal inspection Respiratory: prolonged expiration, No respiratory distress, No stridor, No wheezing Cardiac/Chest: systolic murmur, irregularly irregular Abdomen: normal bowel sounds, non-tender, soft Pelvic Exam: deferred Rectal: deferred Skin: normal color, warm/dry Extremities: normal range of motion, non-tender, normal inspection, normal capillary refill Neuro/Psych: no motor/sensory deficits, alert, normal mood/affect, oriented x 3 ICD10 Worksheet Patient Problems: Problems Problem Status Onset Acute blood loss anemia Acute CAD in [place] artery Acute S/P CABG x 2 Acute ~10/20/16 Alcohol abuse Acute Altered mental status Acute Atrial fibrillation Acute Hypothermia Acute
--- NOTE | 2016-10-22 09:11 | SOAPPROG ---
SOAP Progress Note Assessment/Plan: Assessment: POD#2 CABG x 2 (DAMICO-LAD, SV-RCA), EVH rt thigh, prophylactic AtriClip ligation left atrial appendage Sx severe CAD w preserved LV systolic fx - s/p CABG. Hemodynamically stable early postop course. Transient low dose nicardipine for elev BP. No tachycardia or sustained backup pacing. Adequately autodiuresing moderate volume overload. Secondary prevention with ASA, BB as tolerated, and statin when eating well. Acute expected blood loss anemia with thrombocytopenia - Stable s/p 2u PRBC. No evidence active bleeding. Care w VTE prophylaxis while platelets depressed. PVD - Moderate bilat carotid disease with asx 75% DEL stenosis, anticipating CEA. Stable. No apparent postop neuro deficits. Tobacco abuse - 50 pk yr hx, current someday smoker. Suspected COPD. Extubated without incident. Pulm following. Mucolytics, bronchodilators prn. Hx of ETOH abuse - CIWA protocol, wine with meals. Plan: Blakes to bulb suction. Cont metorolol 12.5 mg BID. Follow plts. Cont inc activity and aggressive pulm toilet. Observe in ICU one more day. 10/22/16 09:10 Subjective: Doing ok. Improving appetite and mobility. No acute concerns. Objective: Vital Signs Temp Pulse Resp BP Pulse Ox 37.1 C 85 14 126/60 H 96 10/21/16 12:00 10/22/16 06:00 10/22/16 06:00 10/22/16 06:00 10/22/16 06:00 Laboratory Results 10/22/16 05:40 10/22/16 05:40 10/21/16 10/22/16 10/23/16 05:59 05:59 05:59 Intake Total 2651 480 Output Total 2230 1790 Balance 421 -1310 PT 13.6 SEC (12.0-15.0) 10/19/16 10:10 INR 1.05 (0.83-1.16) 10/19/16 10:10 HR, rhythm and BP stable. Min suppl O2 req. Adequate fluid balance. CXR -> left basilar atelectasis, o/w clear CTOP thin, quantity mod elev. No AL w vigorous cough. Physical Exam - Physical Exam General Appearance: alert, no apparent distress Respiratory: decreased breath sounds (bases), crackles (coarse lower airways), other (blakes x 3 to bulb suction, thin serosang drainage, no tidal, no AL w good coughs) Cardiac/Chest: regular rate, rhythm, other (Sternum grossly stable. Sternotomy and LLE venotomy CDI. Vwires intact) Abdomen: non-tender, soft Skin: warm/dry Extremities: swelling (trace) ICD10 Worksheet Patient Problems: Problems Problem Status Onset Acute blood loss anemia Acute CAD in [place] artery Acute S/P CABG x 2 Acute ~10/20/16 Alcohol abuse Acute Altered mental status Acute Atrial fibrillation Acute Hypothermia Acute
[2016-10-22] MEDS: SENNOSIDES/DOCUSATE SODIUM TAB PO SCH ×2 (09:16→20:58)
[2016-10-22] MEDS: ASPIRIN EC 81 MG TAB PO SCH (09:16)
[2016-10-22] MEDS: METOPROLOL TARTRATE 25 MG TAB PO SCH ×2 (09:16→20:44)
[2016-10-22] MEDS: PANTOPRAZOLE SODIUM 40 MG TAB PO SCH (09:16)
[2016-10-22] MEDS: THIAMINE HCL 100 MG TAB PO SCH (09:17)
[2016-10-22] MEDS: FOLIC ACID 1 MG TAB PO SCH (09:17)
[2016-10-22] MEDS: WHITE WINE 120 ML BOTTLE PO SCH ×3 (11:00→23:54)
[2016-10-22] MEDS: MAGNESIUM OXIDE 400 MG TAB PO SCH (20:43)
[2016-10-22] MEDS ORDERED: AMIODARONE A.FIB-6HR INFSN (ORDER 2/3) IV ONE (23:00)
[2016-10-22] MEDS ORDERED: AMIODARONE A.FIB-LOAD DOSE(ORDER 1/3) IV ONE (23:00)
[2016-10-22 23:31] LABS: MAGNESIUM 1.6 mg/dL (1.6-2.3); POTASSIUM 4.4 mEq/L (3.5-5.2)
[2016-10-23] MEDS ORDERED: MAGNESIUM SULF 2 GM/WATER 50 ML IV ONE
[2016-10-23] MEDS: traZODone 50 MG TAB PO SCH ×2 (00:07→22:01)
[2016-10-23] MEDS: HYDROCODONE/APAP 5/325 TAB PO PRN ×3 (00:49→22:01)
[2016-10-23] MEDS ORDERED: ALBUMIN 5% 250 ML BOTTLE IV ONE (03:19)
[2016-10-23] MEDS ORDERED: ALBUMIN 5% 250 ML IV ONE (04:00)
[2016-10-23] MEDS ORDERED: AMIODARONE/DEXTROSE 200 ML IV SCH (05:00)
[2016-10-23] MEDS ORDERED: FUROSEMIDE 20 MG/2 ML VIAL IVP ONE ×2 (07:33→15:00)
[2016-10-23] MEDS ORDERED: POTASSIUM CL 20 MEQ TAB PO ONE ×2 (07:33→10:30)
--- NOTE | 2016-10-23 07:36 | SOAPPROG ---
SOAP Progress Note Assessment/Plan: Assessment: POD#2 CABG x 2 (DAMICO-LAD, SV-RCA), EVH rt thigh, prophylactic AtriClip ligation left atrial appendage Sx severe CAD w preserved LV systolic fx - s/p CABG. Hemodynamically stable early postop course. Transient low dose nicardipine for elev BP. Suboptimal autodiuresis of moderate volume overload. Secondary prevention with ASA, BB as tolerated, and statin when eating well. Postoperative PAF - On low dose BB, developing JR and pauses on amio. VVI paced since early am. Antinodals stopped. Relative hypotension during bradycardia and transfused 1u PRBC. Acute expected blood loss anemia with thrombocytopenia - Stable s/p 2u PRBC. No evidence active bleeding. Care w VTE prophylaxis while platelets depressed. PVD - Moderate bilat carotid disease with asx 75% DEL stenosis, anticipating CEA. Stable. No apparent postop neuro deficits. Tobacco abuse - 50 pk yr hx, current someday smoker. Suspected COPD. Extubated without incident. Pulm following. Mucolytics, bronchodilators prn. Hx of ETOH abuse - CIWA protocol, wine with meals. Plan: Stop amiodarone and metoprolol. Cont VVI @ 80. Begin daily diuresis. Ok for tx to PCU if not pacer dependent. 10/23/16 07:34 Subjective: Doing ok. 3 walks yest well tolerated. Unaware of palpitations. Developing a cough with IS. Objective: Vital Signs Temp Pulse Resp BP Pulse Ox 36.6 C 87 18 104/65 94 10/23/16 06:00 10/23/16 06:00 10/23/16 06:00 10/23/16 06:00 10/23/16 06:00 Laboratory Results 10/22/16 05:40 10/22/16 22:55 10/22/16 10/23/16 10/24/16 05:59 05:59 05:59 Intake Total 480 2028 Output Total 1790 1258 Balance -1310 770 PT 13.6 SEC (12.0-15.0) 10/19/16 10:10 INR 1.05 (0.83-1.16) 10/19/16 10:10 AF Rx w amio compl by JR/pauses. Vpaced since 2am. Underlying JR. BP supported w colloid (albumin and PRBC) during bradyarrhythmia. CXR -> Inc interstitial edema CTOP thin, quantity mod elev Positive fluid balance, +8 kg overall. Labs ok. Plt low but plateaued. Physical Exam - Physical Exam General Appearance: alert, no apparent distress Respiratory: rhonchi, other (Blakes x 3 to bulb suction, thin serosang drainage) Cardiac/Chest: regular rate, rhythm (paced), other (Sternotomy and LLE venotomy CDI. Vwires connected.) Abdomen: non-tender, soft Skin: warm/dry Extremities: swelling (1+ dependent) ICD10 Worksheet Patient Problems: Problems Problem Status Onset Acute blood loss anemia Acute CAD in [place] artery Acute S/P CABG x 2 Acute ~10/20/16 Alcohol abuse Acute Altered mental status Acute Atrial fibrillation Acute Hypothermia Acute
[2016-10-23 08:23] LABS: HEMOGLOBIN 11.3 g/dL (12.6-16.3)
[2016-10-23 08:46] LABS: POTASSIUM 4.7 mEq/L (3.5-5.2)
[2016-10-23] MEDS ORDERED: FUROSEMIDE 20 MG/2 ML VIAL ONE (10:09)
[2016-10-23] MEDS: CHOLECALCIFEROL VIT D3 1,000 UNITS TAB PO SCH (10:13)
[2016-10-23] MEDS: FOLIC ACID 1 MG TAB PO SCH (10:13)
[2016-10-23] MEDS: PANTOPRAZOLE SODIUM 40 MG TAB PO SCH (10:13)
[2016-10-23] MEDS: ATORVASTATIN CALCIUM 10 MG TAB PO SCH (10:13)
[2016-10-23] MEDS: ASPIRIN EC 81 MG TAB PO SCH (10:13)
[2016-10-23] MEDS: MAGNESIUM OXIDE 400 MG TAB PO SCH ×2 (10:13→20:53)
[2016-10-23] MEDS: MULTIVITAMINS 1 EACH TAB PO SCH (10:13)
[2016-10-23] MEDS: SENNOSIDES/DOCUSATE SODIUM TAB PO SCH ×2 (10:18→20:53)
[2016-10-23] MEDS: THIAMINE HCL 100 MG TAB PO SCH (10:18)
[2016-10-23] MEDS: WHITE WINE 120 ML BOTTLE PO SCH ×3 (11:30→20:55)
[2016-10-23] MEDS ORDERED: MAGNESIUM HYDROXIDE 30 ML UDCUP PO PRN (14:14)
[2016-10-23] MEDS: LISINOPRIL 5 MG TAB PO SCH (20:53)
[2016-10-24] MEDS ORDERED: AMIODARONE HCL 100 ML IV ONE (01:03)
[2016-10-24] MEDS ORDERED: AMIODARONE HCL 200 ML IV ONE (03:00)
[2016-10-24] MEDS: HYDROCODONE/APAP 5/325 TAB PO PRN ×3 (04:25→22:28)
[2016-10-24 05:29] LABS: ANION GAP 6 mEq/L (8-16); CALCIUM 8.8 mg/dL (8.5-10.4); CARBON DIOXIDE 25 mEq/l (22-31); CHLORIDE 99 mEq/L (97-110); CREATININE 0.8 mg/dL (0.6-1.0); GLOMERULAR FILTRATION RATE > 60; GLUCOSE 119 mg/dL (70-100); SODIUM 130 mEq/L (134-144)
--- NOTE | 2016-10-24 07:41 | SOAPPROG ---
SOAP Progress Note Assessment/Plan: Assessment: POD#3 CABG x 2 (DAMICO-LAD, SV-RCA), EVH rt thigh, prophylactic AtriClip ligation left atrial appendage Sx severe CAD w preserved LV systolic fx - s/p CABG. Hemodynamically stable early postop course. Transient low dose nicardipine for elev BP. Active diuresis of moderate volume overload initiated. Secondary prevention with ASA and statin. BB contraindicated d/t bradyarrhythmia. ACEI prn BP control. Postoperative PAF - On low dose BB, developing JR and pauses w adjunctive amio. Antinodals stopped. No sustained backup pacing. Recurrent AF w RVR last noc, responsive to amio bolus and maintenance gtt. Holding SR since 2am without hans or pauses. To transition to oral maintenance amio. Antithrombotic prophylaxis with Eliquis for [id number] score of 4. Acute expected blood loss anemia with thrombocytopenia - Stable s/p 3u PRBC. No evidence active bleeding. Platelet rebound noted. VTE prophylaxis w DOAC. PVD - Moderate bilat carotid disease with asx 75% DEL stenosis, anticipating CEA. Stable. No apparent postop neuro deficits. Tobacco abuse - 50 pk yr hx, current someday smoker. Suspected COPD. Extubated without incident. Pulm following. Mucolytics, bronchodilators prn. Hx of ETOH abuse - CIWA protocol, wine with meals. Plan: Cont amiodarone as per protocol. Cont VVI backup @ 40. Cont daily diuresis. Start Eliquis 2.5 mg BID. Inc activity as tolerated. Anticipate chest tube removal in am. Dispo - Anticipate SNF in 2-3 days if medically stable. 10/23/16 07:34 Subjective: Very little sleep since 1am (treatment AF) and not ready to get up just yet. Objective: Vital Signs Temp Pulse Resp BP Pulse Ox 36.6 C 88 16 123/57 H 98 10/24/16 04:00 10/24/16 04:00 10/24/16 04:00 10/24/16 04:00 10/24/16 04:00 Laboratory Results 10/24/16 04:42 10/24/16 04:42 10/23/16 10/24/16 10/25/16 05:59 05:59 05:59 Intake Total 8 50 300 Output Total 1258 1600 100 Balance 770 -1550 200 PT 13.6 SEC (12.0-15.0) 10/19/16 10:10 INR 1.05 (0.83-1.16) 10/19/16 10:10 AF w RVR ~1am, breaking on amio. No ensuing hans. Upward creep in SBP, treated with ACEI. Improving fluid balance. Inaccurate I/Os d/t incontinence. CXR-> decr pulm vasc congestion. Mediastinal tube output approaching removal criteria. Pleural tube output still too high to pull. Platelets on the rise. Physical Exam - Physical Exam General Appearance: alert, no apparent distress Respiratory: lungs clear (grossly), other (blakes x 3 to bulb suction, thin serosang drainage) Cardiac/Chest: regular rate, rhythm, other (Sternotomy and LLE venotomy CDI) Abdomen: non-tender, soft Skin: warm/dry Extremities: swelling (trace) ICD10 Worksheet Patient Problems: Problems Problem Status Onset Acute blood loss anemia Acute CAD in [place] artery Acute Chronic Disease Mgmt/Transitional Care Acute Paroxysmal atrial fibrillation Acute S/P CABG x 2 Acute ~10/20/16 Alcohol abuse Chronic
[2016-10-24] MEDS ORDERED: POTASSIUM CL 20 MEQ TAB PO ONE (09:00)
[2016-10-24] MEDS ORDERED: FUROSEMIDE 20 MG/2 ML VIAL IVP ONE (09:00)
[2016-10-24] MEDS ORDERED: SENNOSIDES/DOCUSATE SODIUM TAB PO PRN (09:00)
[2016-10-24] MEDS: MULTIVITAMINS 1 EACH TAB PO SCH (09:37)
[2016-10-24] MEDS: CHOLECALCIFEROL VIT D3 1,000 UNITS TAB PO SCH (09:37)
[2016-10-24] MEDS: FOLIC ACID 1 MG TAB PO SCH (09:37)
[2016-10-24] MEDS: ASPIRIN EC 81 MG TAB PO SCH (09:37)
[2016-10-24] MEDS: ATORVASTATIN CALCIUM 10 MG TAB PO SCH (09:37)
[2016-10-24] MEDS: PANTOPRAZOLE SODIUM 40 MG TAB PO SCH (09:37)
[2016-10-24] MEDS: THIAMINE HCL 100 MG TAB PO SCH (09:38)
[2016-10-24] MEDS: MAGNESIUM OXIDE 400 MG TAB PO SCH ×2 (09:38→21:23)
[2016-10-24] MEDS: APIXABAN 2.5 MG TAB PO SCH ×2 (09:49→21:23)
[2016-10-24] MEDS: WHITE WINE 120 ML BOTTLE PO SCH ×3 (10:06→21:25)
[2016-10-24] MEDS ORDERED: AMIODARONE HCL 200 MG TAB PO ONE (14:00)
[2016-10-24] MEDS: LISINOPRIL 5 MG TAB PO SCH (21:24)
[2016-10-24] MEDS: AMIODARONE HCL 200 MG TAB PO SCH (21:24)
[2016-10-24] MEDS: traZODone 50 MG TAB PO SCH (22:28)
[2016-10-25] MEDS: HYDROCODONE/APAP 5/325 TAB PO PRN ×3 (03:17→22:38)
[2016-10-25 03:37] LABS: HEMATOCRIT 29.3 % (38.0-47.0); HEMOGLOBIN 9.8 g/dL (12.6-16.3); MEAN CELL HEMOGLOBIN 32.9 pg (27.9-34.1); MEAN CELL HEMOGLOBIN CONCENTR. 33.4 g/dL (32.4-36.7); MEAN CELL VOLUME 98.3 fL (81.5-99.8); RED BLOOD CELL COUNT 2.98 10^6/uL (4.18-5.33)
[2016-10-25 03:39] LABS: POTASSIUM 4.5 mEq/L (3.5-5.2)
[2016-10-25] MEDS ORDERED: AMIODARONE HCL 100 ML IV ONE (05:00)
--- NOTE | 2016-10-25 08:37 | SOAPPROG ---
SOAP Progress Note Assessment/Plan: Assessment: POD#4 CABG x 2 (DAMICO-LAD, SV-RCA), EVH rt thigh, prophylactic AtriClip ligation left atrial appendage Sx severe CAD w preserved LV systolic fx - s/p CABG. Hemodynamically stable early postop course. Transient low dose nicardipine for elev BP. Active diuresis of moderate volume overload initiated. Secondary prevention with ASA and statin. BB contraindicated d/t bradyarrhythmia. ACEI prn BP control. Postoperative PAF - On low dose BB, developing JR and pauses w adjunctive amio. Antinodals stopped. No sustained backup pacing. Episodic AF w RVR last 48h, responsive to amio bolus. Transitioned to BID oral dosing with bolus IV dosing prn. Backup pacing triggered last noc but sensing inappropriately. EP cards consulted. Antithrombotic prophylaxis with Eliquis for [id number] score of 4. Acute expected blood loss anemia with thrombocytopenia - Stable s/p 3u PRBC. No evidence active bleeding. Platelet rebound noted. VTE prophylaxis w DOAC. PVD - Moderate bilat carotid disease with asx 75% DEL stenosis, anticipating CEA. Stable. No apparent postop neuro deficits. Tobacco abuse - 50 pk yr hx, current someday smoker. Suspected COPD. Extubated without incident. Pulm following. Mucolytics, bronchodilators prn. Hx of ETOH abuse - CIWA protocol, wine with meals. Plan: EP consult re pacer and AF management. Cont Eliquis 2.5 mg BID. Relax diuresis. Remove mediastinal and left pleural drain. Inc activity as tolerated. Dispo - Anticipate SNF on Sat if medically stable. 10/25/16 08:33 Subjective: Doing ok. Having insomnia and would like Trazodone dose inc. Is requiring some assistance to get OOB and not opposed to going to SNF for a couple weeks. 5 BMs yest. Objective: Vital Signs Temp Pulse Resp BP Pulse Ox 36.6 C 57 L 20 108/53 L 98 10/25/16 08:23 10/25/16 08:23 10/25/16 08:23 10/25/16 08:23 10/25/16 08:23 Laboratory Results 10/25/16 03:20 10/25/16 03:20 10/24/16 10/25/16 10/26/16 05:59 05:59 05:59 Intake Total 50 1333.6 Output Total 1600 1125 Balance -1550 208.6 PT 13.6 SEC (12.0-15.0) 10/19/16 10:10 INR 1.05 (0.83-1.16) 10/19/16 10:10 Recurrent AF w VVR, some RVR last noc. Rx with bolus amio compl by JR 40s-50s triggering pacing. Backup rate inc to 60 compl by inappropriate sensing. Underlying rhythm this am unclear. Occ PW. No overt AF. Rates generally > 50. SBP > 90 held. Min suppl O2. Adequate fluid balance. 2 of 3 roshni drains at removal criteria. Physical Exam - Physical Exam General Appearance: alert, no apparent distress Respiratory: lungs clear (grossly), other (blakes x 3 to bulb suction, thin serosang drainage) Cardiac/Chest: other (irreg rhythm) Abdomen: soft Skin: warm/dry Extremities: swelling (trace) ICD10 Worksheet Patient Problems: Problems Problem Status Onset Acute blood loss anemia Acute CAD in [place] artery Acute Chronic Disease Mgmt/Transitional Care Acute Paroxysmal atrial fibrillation Acute S/P CABG x 2 Acute ~10/20/16 Alcohol abuse Chronic
[2016-10-25] MEDS ORDERED: POTASSIUM CL 20 MEQ TAB PO ONE (09:00)
[2016-10-25] MEDS ORDERED: FUROSEMIDE 20 MG/2 ML VIAL IVP ONE (09:00)
[2016-10-25] MEDS: AMIODARONE HCL 200 MG TAB PO SCH (09:42)
[2016-10-25] MEDS: PANTOPRAZOLE SODIUM 40 MG TAB PO SCH (09:46)
[2016-10-25] MEDS: THIAMINE HCL 100 MG TAB PO SCH (09:46)
[2016-10-25] MEDS: ATORVASTATIN CALCIUM 10 MG TAB PO SCH (09:46)
[2016-10-25] MEDS: CHOLECALCIFEROL VIT D3 1,000 UNITS TAB PO SCH (09:46)
[2016-10-25] MEDS: FOLIC ACID 1 MG TAB PO SCH (09:47)
[2016-10-25] MEDS: ASPIRIN EC 81 MG TAB PO SCH (09:47)
[2016-10-25] MEDS: MULTIVITAMINS 1 EACH TAB PO SCH (09:47)
[2016-10-25] MEDS: MAGNESIUM OXIDE 400 MG TAB PO SCH (09:47)
[2016-10-25] MEDS: APIXABAN 2.5 MG TAB PO SCH ×2 (09:47→21:00)
[2016-10-25] MEDS: WHITE WINE 120 ML BOTTLE PO SCH ×3 (11:16→21:40)
--- NOTE | 2016-10-25 11:23 | CPEKG ---
Heart Rate: 61 RR Interval: 984 QRSD Interval: 84 QT Interval: 416 QTC Interval: 419 QRS [place]: -54 T Wave [place]: 11 EKG Severity - ABNORMAL ECG - EKG Impression: ACCELERATED JUNCTIONAL ESCAPE RHYTHM EKG Impression: LOW VOLTAGE THROUGHOUT EKG Impression: BORDERLINE T ABNORMALITIES, ANTERIOR LEADS Electronically Signed By: Bolivar Holbrook 25-Oct-2016 11:48:17
--- NOTE | 2016-10-25 12:07 | PDCARPN ---
Cardiology Progress Note Chief Complaint: Asked to see patient by Dr. Ori Allen for EP opinion regarding tachycardia- bradycardia. Assessment/Plan: Assessment: 1. CAD status post CABG 2. Postoperative atrial fibrillation 3. Bradycardia, likely drug induced Plan: - she is hemodynamically stable with both wandering atrial pacemaker and accelerated junctional rhythm, ventricular rates are between 55 to 65 beats per minute. Epicardial pacemaker is undersensing with some R on T phenomenon when it paces, therefore epicardial pacemaker will be turned to off. If we do need to use epicardial pacemaker, I would pace at 80 beats per minute or higher to avoid R on T pacing. - Patient was on beta-brandon immediately postop and then received both IV and p. o. amiodarone for atrial fibrillation with ventricular rates between 120 to 130 beats per minute. Post conversion she had sinus bradycardia/junctional rhythm. She is currently on p.o. amiodarone which will be discontinued. No AV jacinto agents will be used unless she has atrial fibrillation with ventricular rates higher than 130 beats per minute at which case consideration may have to be given to permanent pacing based on the situation at that time. At this time I would like to observe her on telemetry and we do not plan to put a pacemaker in at this time. Case discussed with surgical PA Maggi Rahman, I also discussed with Dr. Uvaldo Enriquez the patient's gas and oil servicer. 10/25/16 12:04 Subjective: Patient feels well. She appears anxious. She denies chest pain. She denies palpitations or dizziness. Reviewed/Discussed With: multidisciplinary team Time Spent With Patient: 25 minutes Objective: Vital Signs (8 Hrs) Temp Pulse Resp BP Pulse Ox 10/25/16 11:11 36.7 C 60 12 107/55 L 96 10/25/16 08:23 36.6 C 57 L 20 108/53 L 98 Intake/Output (24 Hrs) 10/24/16 10/25/16 10/26/16 11:59 11:59 11:59 Intake Total 400 983.6 Output Total 1545 1050 Balance -1145 -66.4 Intake: Oral (ml) 400 850 IV Infused (ml) 133.6 Amiodarone HCl 200 ml @ 133.6 16.667 mls/hr IV ONCE ONE Rx#:[id number] Output: Urine (ml) 800 375 Bedside Commode 350 75 Incontinence 100 Toilet 450 200 Chest Tube Output (ml) 745 675 Location 1 Mediastinal 115 135 Location 2 Right Pleural 350 340 Location 3 Left Pleural 280 200 Other: Weight 56.2 kg 55 kg Number of Voids Incontinence 1 Number of Stools Bedside Commode 1 Incontinence 1 Toilet 1 Result Diagrams: 10/25/16 03:20 10/25/16 03:20 EKG: junctional rhythm Telemetry: telemetry showed ventricular under sensing on epicardial pacemaker, it was pacing at a backup rate of 40 beats per minute even though [place] heart rate was 56 beats per minute. Epicardial pacemaker turned to off. Following this wondering atrial pacemaker noted, rates between 55 to 65 beats per minute, ICD10 Worksheet Patient Problems: Problems Problem Status Onset Chronic Disease Mgmt/Transitional Care Acute Alcohol abuse Chronic Paroxysmal atrial fibrillation Acute Acute blood loss anemia Acute S/P CABG x 2 Acute ~10/20/16 CAD in [place] artery Acute
[2016-10-25] MEDS: ONDANSETRON 4 MG/2 ML VIAL IVP PRN (19:34)
--- NOTE | 2016-10-25 19:52 | CPIP ---
[f rep st] INVASIVE CARDIAC PROCEDURE DATE OF PROCEDURE: 10/19/2016 PROCEDURE PERFORMED: Diagnostic left heart catheterization. INDICATION FOR PROCEDURE: High risk exercise nuclear stress test with evidence of anterior, as well as inferior ischemia and transient ischemic dilation. PROCEDURE IN DETAIL: After informed consent was obtained, the patient was brought to the cardiac ca theterization lab where she was prepped and draped in a sterile fashion. Using 1% lidocaine, the [facility] groin was anesthetized. Using modified Seldinger technique, a 6-Lao catheter was placed into the right common femoral artery without complications. JL4 catheter was used to take images of the left coronary anatomy in multiple projections. The JL4 catheter was exchanged over a guidewire for a JR4 catheter. JR4 catheter was used to take images of the right coronary anatomy in multiple pro jections. JR4 catheter was exchanged over a guidewire for an angled pigtail catheter. Angled [place] catheter was used to cross the aortic valve. Left ventriculogram was performed. LVEDP was asses sed, and an aortic valve gradient was assessed. Angled pigtail catheter was removed over guidewire without complications. Images of the right common femoral artery site demonstrated appropriate plac ement of the sheath; however, the right femoral vessel was small, heavily calcified, completely calc ified with no flow down the right SFA, which reconstitutes at the level of the popliteal artery. CORONARY ANATOMY: 1. Left main normal size and caliber. It bifurcates into left anterior descending and left circumf monal[place] coronary artery. There are some mild luminal irregularities with within the left main but with no flow-limiting coronary artery disease. 2. Left anterior descending demonstrates 80% to 90% proximal stenosis at a level of the vessel that trifurcates into a large first septal sap functional analyst and first diagonal branch. There is moderate diff use disease throughout the remainder of the LAD. 3. Circumflex vessel demonstrates 80% to 90% ostial stenosis. There is a small first obtuse margin al branch with ostial disease as well of approximately 80% to 90%. 4. The right coronary artery is a large caliber vessel that bifurcates into PDA and PLV. There is severe diffuse disease within the proximal and midportion of the vessel between 80% and 90% with mul tiple areas of stenosis. HEMODYNAMICS: 1. Left ventriculogram demonstrates normal left ventricular function. LVEDP of 12 mmHg. 2. Aortic valve gradient: None. CONCLUSION: Severe 3-vessel coronary artery disease with proximal left anterior descending disease, ostial circumflex disease and diffuse disease within dominant right coronary artery. PLAN: Patient will be seen in consultation by Dr. Allen for consideration of coronary artery bypass graft surgery in the setting of severe 3-vessel coronary artery disease. /[id number]/MODL
[2016-10-25] MEDS: LISINOPRIL 5 MG TAB PO SCH (20:59)
[2016-10-25] MEDS: traZODone 50 MG TAB PO SCH (21:00)
[2016-10-26 05:53] LABS: HEMATOCRIT 29.8 % (38.0-47.0)
[2016-10-26 06:10] LABS: ANION GAP 7 mEq/L (8-16); CALCIUM 8.1 mg/dL (8.5-10.4); CARBON DIOXIDE 24 mEq/l (22-31); CHLORIDE 96 mEq/L (97-110); CREATININE 0.8 mg/dL (0.6-1.0); GLOMERULAR FILTRATION RATE > 60; GLUCOSE 99 mg/dL (70-100); MAGNESIUM 2.1 mg/dL (1.6-2.3); POTASSIUM 4.5 mEq/L (3.5-5.2); SODIUM 127 mEq/L (134-144)
[2016-10-26] MEDS ORDERED: D5W 1,000 ML IV SCH (08:00)
--- NOTE | 2016-10-26 08:39 | SOAPPROG ---
SOAP Progress Note Assessment/Plan: Assessment: POD#4 CABG x 2 (DAMICO-LAD, SV-RCA), EVH rt thigh, prophylactic AtriClip ligation left atrial appendage Sx severe CAD w preserved LV systolic fx - s/p CABG. Hemodynamically stable early postop course. Transient low dose nicardipine for elev BP. Active diuresis of moderate volume overload initiated. Hyponatremic this am. K and Mg ok. 2 tubes out. Secondary prevention with ASA and statin. BB contraindicated d/ t bradyarrhythmia. ACEI prn BP control. Postoperative PAF - With intermittent RVR. Use of BB and amio compl by JR/1-2 sec pauses req backup pacing. Seen by EP. Antinodals stopped. Pacer disconnected d/t undersensing. Predominant rhythm last 24 hrs WAP/AJR with rates > 50. Antithrombotic prophylaxis with Eliquis for [id number] score of 4. Acute expected blood loss anemia with thrombocytopenia - Stable s/p 3u PRBC. No evidence active bleeding. Platelet rebound noted. VTE prophylaxis w DOAC. PVD - Moderate bilat carotid disease with asx 75% DEL stenosis, anticipating CEA. Stable. No apparent postop neuro deficits. Tobacco abuse - 50 pk yr hx, current someday smoker. Suspected COPD. Extubated without incident. Pulm following. Mucolytics, bronchodilators prn. Hx of ETOH abuse - CIWA protocol, wine with meals. Plan: Consider removal of rt pl drain and Vwire later today. Cont Eliquis 2.5 mg BID. D5W @ 50 ml/h x 10h for hyponatremia. Resume gentle diuresis this afternoon. Intensify pulm toilet. Dispo - Anticipate SNF on Sat if medically stable. 10/26/16 08:22 Subjective: Relieved that no imminent need for pacemaker. Improving mobility. Not much appetite. Is enjoying iced tea. Feels a bit bloated "gassy" this morning but can 't seem to express it. Objective: Vital Signs Temp Pulse Resp BP Pulse Ox 36.8 C 62 18 125/51 H 98 10/26/16 04:00 10/26/16 04:00 10/26/16 04:00 10/26/16 04:00 10/26/16 04:00 Laboratory Results 10/26/16 05:44 10/26/16 05:44 10/25/16 10/26/16 10/27/16 05:59 05:59 05:59 Intake Total 1333.6 1050 Output Total 1125 890 Balance 208.6 160 PT 13.6 SEC (12.0-15.0) 10/19/16 10:10 INR 1.05 (0.83-1.16) 10/19/16 10:10 Holding HR > 55. No pauses. SBP creep in pm and receiving 5 mg lisinopril. Stable suppl O2 req. Sl positive fluid balance/wt gain. +6 kg overall. CXR-> Inc left pl effusion and basilar atelectasis. Rt base well drained. Na dip, o/w labs ok. - Pending Discharge Pending Discharge Within 48 Hours: Yes Pending Discharge Date: 10/28/16 Pending Discharge Time: 11:00 Physical Exam - Physical Exam General Appearance: alert, no apparent distress Respiratory: crackles (bases), other (rt pl roshni to bulb suction, serosang drainage) Cardiac/Chest: regular rate, rhythm, other (Sternum grossly stable. Sternotomy and venotomy CDI, ecchymotic) Abdomen: normal bowel sounds, soft Skin: warm/dry Extremities: other (no visible edema) ICD10 Worksheet Patient Problems: Problems Problem Status Onset Acute blood loss anemia Acute CAD in [place] artery Acute Chronic Disease Mgmt/Transitional Care Acute Paroxysmal atrial fibrillation Acute S/P CABG x 2 Acute ~10/20/16 Alcohol abuse Chronic
[2016-10-26] MEDS ORDERED: AMIODARONE HCL 200 MG TAB PO SCH (09:00)
[2016-10-26] MEDS: ASPIRIN EC 81 MG TAB PO SCH (10:19)
[2016-10-26] MEDS: PANTOPRAZOLE SODIUM 40 MG TAB PO SCH (10:19)
[2016-10-26] MEDS: CHOLECALCIFEROL VIT D3 1,000 UNITS TAB PO SCH (10:20)
[2016-10-26] MEDS: ATORVASTATIN CALCIUM 10 MG TAB PO SCH (10:20)
[2016-10-26] MEDS: FOLIC ACID 1 MG TAB PO SCH (10:20)
[2016-10-26] MEDS: THIAMINE HCL 100 MG TAB PO SCH (10:20)
[2016-10-26] MEDS: MAGNESIUM OXIDE 400 MG TAB PO SCH (10:20)
[2016-10-26] MEDS: APIXABAN 2.5 MG TAB PO SCH ×2 (10:20→21:00)
[2016-10-26] MEDS: MULTIVITAMINS 1 EACH TAB PO SCH (10:20)
[2016-10-26] MEDS: SIMETHICONE 80 MG TAB CHEW PO PRN ×2 (10:21→21:06)
[2016-10-26] MEDS: WHITE WINE 120 ML BOTTLE PO SCH ×3 (10:26→21:01)
[2016-10-26] MEDS ORDERED: FUROSEMIDE 20 MG TAB PO ONE (15:00)
[2016-10-26] MEDS ORDERED: POTASSIUM CL 10 MEQ TAB PO ONE (15:00)
[2016-10-26] MEDS: LISINOPRIL 5 MG TAB PO SCH (21:00)
[2016-10-26] MEDS: traZODone 50 MG TAB PO SCH (21:00)
[2016-10-26] MEDS: HYDROCODONE/APAP 5/325 TAB PO PRN (22:41)
[2016-10-27] MEDS: HYDROCODONE/APAP 5/325 TAB PO PRN ×3 (03:34→23:57)
[2016-10-27 04:23] LABS: ANION GAP 7 mEq/L (8-16); CALCIUM 8.1 mg/dL (8.5-10.4); CARBON DIOXIDE 26 mEq/l (22-31); CHLORIDE 95 mEq/L (97-110); CREATININE 0.8 mg/dL (0.6-1.0); GLOMERULAR FILTRATION RATE > 60; GLUCOSE 107 mg/dL (70-100); SODIUM 128 mEq/L (134-144)
--- NOTE | 2016-10-27 08:14 | SOAPPROG ---
SOAP Progress Note Assessment/Plan: Assessment: POD#5 CABG x 2 (DAMICO-LAD, SV-RCA), EVH rt thigh, prophylactic AtriClip ligation left atrial appendage Sx severe CAD w preserved LV systolic fx - s/p CABG. Hemodynamically stable early postop course. Transient low dose nicardipine for elev BP. Active diuresis of moderate volume overload compl by mild hyponatremia. Further diuretic held. Chest tubes out. Secondary prevention with ASA and statin. BB contraindicated d/t bradyarrhythmia. ACEI prn BP control. Postoperative PAF - With intermittent RVR. Use of BB and amio compl by JR/1-2 sec pauses req backup pacing. Seen by EP. Antinodals stopped. Pacer disconnected d/t undersensing. Predominant rhythm last 48 hrs WAP/AJR with rates > 50. TCPW pulled yest. Antithrombotic prophylaxis with Eliquis for [id number] score of 4. Acute expected blood loss anemia with thrombocytopenia - Stable s/p 3u PRBC. No evidence active bleeding. Platelet rebound noted. VTE prophylaxis w DOAC. PVD - Moderate bilat carotid disease with asx 75% DEL stenosis, anticipating CEA. Stable. No apparent postop neuro deficits. Tobacco abuse - 50 pk yr hx, current someday smoker. Suspected COPD. Extubated without incident. Stable secretion management with Acapella. Intention to stop smoking expressed. Declines cessation aids. Hx of ETOH abuse - CIWA protocol. Wine with meals declined. No withdrawal sx. Plan: Cont Eliquis 2.5 mg BID. Cont inc activity and intensified pulm toilet. Dispo - Anticipate SNF ([facility]) tomorrow. 10/27/16 08:09 Subjective: Better each day. Eating more. Another BM. Showered. Comfortable going to rehab tomorrow. Objective: Vital Signs Temp Pulse Resp BP Pulse Ox 36.7 C 66 19 124/55 H 94 10/27/16 03:04 10/27/16 03:04 10/27/16 03:04 10/27/16 03:04 10/27/16 03:04 Laboratory Results 10/26/16 05:44 10/27/16 03:50 10/26/16 10/27/16 10/28/16 05:59 05:59 05:59 Intake Total 1050 1000 Output Total 890 510 Balance 160 490 PT 13.6 SEC (12.0-15.0) 10/19/16 10:10 INR 1.05 (0.83-1.16) 10/19/16 10:10 NSR last 12h. Intermittently off O2. I/Os inaccurate d/t incontinence. Balanced by wts. No further drop in Na s/p D5W. Physical Exam - Physical Exam General Appearance: alert, no apparent distress Respiratory: crackles (scattered bases) Cardiac/Chest: regular rate, rhythm, other (Sternum grossly stable. Sternotomy and venotomy CDI.) Abdomen: non-tender, soft Skin: warm/dry Extremities: swelling (trace dependent) ICD10 Worksheet Patient Problems: Problems Problem Status Onset Acute blood loss anemia Acute CAD in [place] artery Acute Chronic Disease Mgmt/Transitional Care Acute Paroxysmal atrial fibrillation Acute S/P CABG x 2 Acute ~10/20/16 Alcohol abuse Chronic
[2016-10-27] MEDS: MAGNESIUM OXIDE 400 MG TAB PO SCH (10:16)
[2016-10-27] MEDS: ATORVASTATIN CALCIUM 10 MG TAB PO SCH (10:16)
[2016-10-27] MEDS: CHOLECALCIFEROL VIT D3 1,000 UNITS TAB PO SCH (10:16)
[2016-10-27] MEDS: APIXABAN 2.5 MG TAB PO SCH ×2 (10:17→22:12)
[2016-10-27] MEDS: THIAMINE HCL 100 MG TAB PO SCH (10:17)
[2016-10-27] MEDS: PANTOPRAZOLE SODIUM 40 MG TAB PO SCH (10:17)
[2016-10-27] MEDS: ASPIRIN EC 81 MG TAB PO SCH (10:17)
[2016-10-27] MEDS: MULTIVITAMINS 1 EACH TAB PO SCH (10:18)
[2016-10-27] MEDS: traZODone 50 MG TAB PO SCH (22:12)
[2016-10-27] MEDS: LISINOPRIL 5 MG TAB PO SCH (23:34)
[2016-10-27] MEDS: TEMAZEPAM 15 MG CAP PO PRN (23:58)
[2016-10-28 04:09] LABS: HEMATOCRIT 28.4 % (38.0-47.0); HEMOGLOBIN 9.5 g/dL (12.6-16.3); MEAN CELL HEMOGLOBIN 32.8 pg (27.9-34.1); MEAN CELL HEMOGLOBIN CONCENTR. 33.5 g/dL (32.4-36.7); MEAN CELL VOLUME 97.9 fL (81.5-99.8); RED BLOOD CELL COUNT 2.9 10^6/uL (4.18-5.33); RED CELL DISTRIBUTION WIDTH 14.6 % (11.5-15.2)
[2016-10-28 04:27] LABS: ANION GAP 7 mEq/L (8-16); CALCIUM 8.1 mg/dL (8.5-10.4); CARBON DIOXIDE 26 mEq/l (22-31); CHLORIDE 95 mEq/L (97-110); CREATININE 0.7 mg/dL (0.6-1.0); GLOMERULAR FILTRATION RATE > 60; GLUCOSE 89 mg/dL (70-100); POTASSIUM 5.1 mEq/L (3.5-5.2); SODIUM 128 mEq/L (134-144)
--- NOTE | 2016-10-28 08:35 | SOAPPROG ---
SOAP Progress Note Assessment/Plan: Assessment: POD#6 CABG x 2 (DAMICO-LAD, SV-RCA), EVH left thigh, prophylactic AtriClip ligation left atrial appendage Sx severe CAD w preserved LV systolic fx - s/p CABG. Hemodynamically stable early postop course. Transient low dose nicardipine for elev BP. Active diuresis of moderate volume overload compl by mild hyponatremia. Diuresis reinstituted for incr bilat pl effusions after chest tubes out. Secondary prevention with ASA and statin. BB contraindicated d/t bradyarrhythmia. ACEI prn BP control. Postoperative PAF - With intermittent RVR. Use of BB and amio compl by JR/1-2 sec pauses req backup pacing. Seen by EP. Antinodals stopped. Pacer disconnected d/t undersensing and TCPW pulled. Ensuing rhythm WAP/AJR/SR with rates > 55. Antithrombotic prophylaxis with Eliquis for [id number] score of 4. Acute expected blood loss anemia with thrombocytopenia - Stable s/p 3u PRBC. No evidence active bleeding. Platelet rebound noted. VTE prophylaxis w DOAC. PVD - Moderate bilat carotid disease with asx 75% DEL stenosis, anticipating CEA. Stable. No apparent postop neuro deficits. Tobacco abuse - 50 pk yr hx, current someday smoker. Suspected COPD. Extubated without incident. Stable secretion management with Acapella. Intention to stop smoking expressed. Declines cessation aids. Hx of ETOH abuse - CIWA protocol. Wine with meals declined. No withdrawal sx. Plan: Hold Eliquis. Ultrasound guided left thoracentesis. Resume daily lasix. Cont inc activity and intensified pulm toilet. Dispo - SNF ([facility]) tomorrow. 10/28/16 08:32 Objective: Vital Signs Temp Pulse Resp BP Pulse Ox 36.6 C 72 14 110/55 L 97 10/28/16 07:57 10/28/16 07:57 10/28/16 07:57 10/28/16 07:57 10/28/16 07:57 Laboratory Results 10/28/16 04:00 10/28/16 04:00 10/27/16 10/28/16 10/29/16 05:59 05:59 05:59 Intake Total 1000 580 Output Total 510 650 Balance 490 -70 PT 13.6 SEC (12.0-15.0) 10/19/16 10:10 INR 1.05 (0.83-1.16) 10/19/16 10:10 Holding rates > 60. Rare ST/AT 100s. Unable to fully wean off O2. Balanced I/Os by wt. +5 kg overall. CXR -> New small-moderate left pleural eff. Na unchanged. - Pending Discharge Pending Discharge Within 24 Hours: Yes Pending Discharge Date: 10/29/16 Pending Discharge Time: 11:00 Physical Exam - Physical Exam General Appearance: alert, no apparent distress Respiratory: decreased breath sounds (left base) Cardiac/Chest: regular rate, rhythm, other (Sternum grossly stable. Sternotomy and LLE venotomy CDI) Abdomen: soft Skin: warm/dry Extremities: swelling (1+ donor leg, trace dependent RLE) ICD10 Worksheet Patient Problems: Problems Problem Status Onset Acute blood loss anemia Acute CAD in [place] artery Acute Chronic Disease Mgmt/Transitional Care Acute Paroxysmal atrial fibrillation Acute S/P CABG x 2 Acute ~10/20/16 Alcohol abuse Chronic
[2016-10-28] MEDS ORDERED: FUROSEMIDE 20 MG TAB PO SCH (09:00)
[2016-10-28] MEDS: MAGNESIUM OXIDE 400 MG TAB PO SCH (09:30)
[2016-10-28] MEDS: ATORVASTATIN CALCIUM 10 MG TAB PO SCH (09:30)
[2016-10-28] MEDS: PANTOPRAZOLE SODIUM 40 MG TAB PO SCH (09:30)
[2016-10-28] MEDS: APIXABAN 2.5 MG TAB PO SCH ×2 (09:30→20:27)
[2016-10-28] MEDS: ASPIRIN EC 81 MG TAB PO SCH (09:30)
[2016-10-28] MEDS: CHOLECALCIFEROL VIT D3 1,000 UNITS TAB PO SCH (09:30)
[2016-10-28] MEDS: MULTIVITAMINS 1 EACH TAB PO SCH (09:30)
[2016-10-28] MEDS: THIAMINE HCL 100 MG TAB PO SCH (09:30)
[2016-10-28] MEDS ORDERED: LIDOCAINE 1% 300 MG/30 ML SDV ONE (11:14)
[2016-10-28] MEDS ORDERED: NA BICARBONATE 50 MEQ/50 ML VIAL ONE (11:15)
[2016-10-28] MEDS: HYDROCODONE/APAP 5/325 TAB PO PRN ×2 (14:03→22:53)
[2016-10-28] MEDS: traZODone 50 MG TAB PO SCH (20:30)
[2016-10-28] MEDS: SIMETHICONE 80 MG TAB CHEW PO PRN (20:30)
[2016-10-28] MEDS ORDERED: LISINOPRIL 2.5 MG TAB PO SCH (21:00)
[2016-10-28] MEDS: TEMAZEPAM 15 MG CAP PO PRN (22:53)
[2016-10-29] MEDS: HYDROCODONE/APAP 5/325 TAB PO PRN (03:08)
[2016-10-29 03:48] LABS: HEMATOCRIT 27.1 % (38.0-47.0)
[2016-10-29 04:00] LABS: ANION GAP 7 mEq/L (8-16); CARBON DIOXIDE 27 mEq/l (22-31); CHLORIDE 93 mEq/L (97-110); CREATININE 0.7 mg/dL (0.6-1.0); GLOMERULAR FILTRATION RATE > 60; GLUCOSE 100 mg/dL (70-100); POTASSIUM 5.4 mEq/L (3.5-5.2); SODIUM 127 mEq/L (134-144)
[2016-10-29] MEDS ORDERED: FUROSEMIDE 40 MG/4 ML VIAL IVP ONE (07:52)
--- NOTE | 2016-10-29 08:08 | SOAPPROG ---
SOAP Progress Note Assessment/Plan: Assessment: POD#7 CABG x 2 (DAMICO-LAD, SV-RCA), EVH left thigh, prophylactic AtriClip ligation left atrial appendage POD#1 600 ml left thoracentesis Sx severe CAD w preserved LV systolic fx - s/p CABG. Hemodynamically stable early postop course. Transient low dose nicardipine for elev BP. Active diuresis of moderate volume overload compl by mild electrolyte imbalance. Diuresis reinstituted for incr bilat pl effusions after chest tubes out. Secondary prevention with ASA and statin. BB contraindicated d/t bradyarrhythmia. ACEI prn BP control. Postoperative PAF - With intermittent RVR. Use of BB and amio compl by JR/1-2 sec pauses req backup pacing. Seen by EP. Antinodals stopped. Pacer disconnected d/t undersensing and TCPW pulled. Ensuing rhythm WAP/AJR/SR with rates > 50. Antithrombotic prophylaxis with Eliquis for [id number] score of 4. Acute expected blood loss anemia with thrombocytopenia - Stable s/p 3u PRBC. No evidence active bleeding. Platelet rebound noted. VTE prophylaxis w DOAC. PVD - Moderate bilat carotid disease with asx 75% DEL stenosis, anticipating CEA. Stable. No apparent postop neuro deficits. Tobacco abuse - 50 pk yr hx, current someday smoker. Suspected COPD. Extubated without incident. Stable secretion management with Acapella. Intention to stop smoking expressed. Declines cessation aids. Hx of ETOH abuse - CIWA protocol. Wine with meals declined. No withdrawal sx. Plan: Cont fluid restriction 1800 ml/day. Cont daily diuresis. Switch to Torsemide. Stop magnesium suppl. Follow K. Cont inc activity and aggressive pulm toilet. Dispo - SNF ([facility]) later today. 10/29/16 08:06 Subjective: Feels well. Grateful for care received. Slept well on Restoril. Nose bleed responsive to pressure. Happy to be going back to (familiar) [facility]. Objective: Vital Signs Temp Pulse Resp BP Pulse Ox 36.9 C 67 17 130/45 H 93 10/29/16 04:00 10/29/16 04:00 10/29/16 04:00 10/29/16 04:00 10/29/16 04:00 Laboratory Results 10/29/16 03:30 10/29/16 03:30 10/28/16 10/29/16 10/30/16 05:59 05:59 05:59 Intake Total 580 1000 Output Total 650 500 Balance -70 500 PT 13.6 SEC (12.0-15.0) 10/19/16 10:10 INR 1.05 (0.83-1.16) 10/19/16 10:10 One episode hans last noc AJR terminated by SR. Ensuing rates > 60. BP controlled on low dose ACEI. Inaccurate I/Os d/t incontinence. 1/2 kg wt loss overnight on oral lasix, still +5 kilos overall. CXR-> inc bibasilar atelectasis, sm left pl eff K elev, Na low but plateaued, ? adrenal insuff Physical Exam - Physical Exam General Appearance: alert, no apparent distress Respiratory: crackles (bases) Cardiac/Chest: regular rate, rhythm, other (Sternotomy and LLE venotomy CDI) Abdomen: soft Skin: warm/dry Extremities: swelling (1+ dep) ICD10 Worksheet Patient Problems: Problems Problem Status Onset Acute blood loss anemia Acute CAD in [place] artery Acute Chronic Disease Mgmt/Transitional Care Acute Paroxysmal atrial fibrillation Acute S/P CABG x 2 Acute ~10/20/16 Alcohol abuse Chronic
[2016-10-29] MEDS: CHOLECALCIFEROL VIT D3 1,000 UNITS TAB PO SCH (08:23)
[2016-10-29] MEDS: ATORVASTATIN CALCIUM 10 MG TAB PO SCH (08:24)
[2016-10-29] MEDS: APIXABAN 2.5 MG TAB PO SCH (08:24)
[2016-10-29] MEDS: ASPIRIN EC 81 MG TAB PO SCH (08:24)
[2016-10-29] MEDS: THIAMINE HCL 100 MG TAB PO SCH (08:24)
[2016-10-29] MEDS: PANTOPRAZOLE SODIUM 40 MG TAB PO SCH (08:24)
[2016-10-29] MEDS: MULTIVITAMINS 1 EACH TAB PO SCH (08:24)
[2016-10-29 12:16] LABS: POTASSIUM 4.7 mEq/L (3.5-5.2)
[2016-10-29 12:17] VITALS: BP 137/66; PULSE 75; RESP 15; TEMP 98; O2SAT 96
--- NOTE | 2016-10-29 12:45 | PDIAF ---
- Diagnosis Diagnosis: CAD s/p CABG, postop bradyarrhythmias Code Status: Full Code - Medication Management Discharge Medications: Medications to Continue on Transfer Multivitamins [Multivitamin (*)] 1 each PO DAILY tab 07/17/16 [Last Taken 10/18] Pantoprazole Sodium [Protonix 40mg (*)] 40 mg PO DAILY tab 07/17/16 [Last Taken 10/18/16] Aspirin EC [Aspirin EC 81 mg (*)] 81 mg PO DAILY 10/16/16 [Last Taken 10/18/16] Atorvastatin Calcium [Lipitor 10 mg (*)] 10 mg PO DAILY 10/16/16 [Last Taken 05/05] Cholecalciferol Vit D3 [Vitamin D3 (*)] 2,000 units PO DAILY 10/16/16 [Last Taken 10/18/16] Melatonin 10 mg PO HS 10/16/16 [Last Taken 10/18/16] traZODone [traZODONE 50MG (*)] 50 mg PO HS 10/16/16 [Last Taken 10/18/16] Clobetasol 0.05% [Temovate Ointment] 1 emre TP BID PRN 10/19/16 [Last Taken 10/18] Acetaminophen [Tylenol 325mg (*)] 325 - 650 mg PO Q4HRS PRN #0 tab 10/29/16 [ Last Taken Unknown] Apixaban [Eliquis] 2.5 mg PO BID #0 tab 10/29/16 [Last Taken Unknown] Lisinopril [Zestril 2.5 mg (*)] 2.5 mg PO HS #0 tab 10/29/16 [Last Taken Unknown ] Polyethylene Glycol 3350 [Miralax 17 gm (*)] 17 gm PO DAILY PRN #0 pkt 10/29/16 [Last Taken Unknown] Potassium Cl [Klor-Con 10 meq (RX)] 10 meq PO DAILY #0 tab 10/29/16 [Last Taken Unknown] Sennosides/Docusate Sodium [Senokot-S] 1 - 2 tab PO BID PRN #0 tab 10/29/16 [ Last Taken Unknown] Simethicone [Mylicon] 80 mg PO PCHS PRN #0 tab.chew 10/29/16 [Last Taken Unknown ] Sodium Cl Nasal [[place] (*)] 1 spray EACH[place]ARE PRN PRN #0 btl 10/29/16 [ Last Taken Unknown] Thiamine HCl [Vitamin B-1] 100 mg PO DAILY #0 tab 10/29/16 [Last Taken Unknown] Torsemide [Demadex] 20 mg PO DAILY AT 10AM #0 tab 10/29/16 [Last Taken Unknown] traMADol [Ultram 50 mg (*)] 50 mg PO Q6HRS PRN #0 tab 10/29/16 [Last Taken Unknown] Discharge Medications: Refer to the Discharge Home Medication list for PRN reason. PICC Care - Routine: N/A - Orders Services needed: Registered Nurse (cardiorespiratory monitoring), Physical Therapy (sternal precautions x 4 weeks), Occupational Therapy (functional mobility), Speech Language Pathologist (dysphagia monitoring, dietary advancement) Oxygen: prn SpO2 < 90% Diet Recommendation: no restrictions on diet, fluid restriction (use comment for amount) (1800 ml daily until back to baseline weight) Diet Texture: Regular Texture Diet, Thin Liquids, Meds Crushed in Puree Weigh Patient: daily [place]: Not applicable Wound Care Instructions: daily soap and water. avoid ointments until eschar off Activity/Weight Bearing Restrictions: No lifting > 10 lbs with an outstretched arm. Avoid push pull acitivities Additional: Call [facility] for overnight weight gain > 2 lbs, absolute wt gain > 5 lbs, worsening leg swelling, resting HR < 50 or > 120, SBP < 90 or > 150, supplemental O2 requirement > 4 Lpm, or any wound concerns - Labs/Radiology BMP Date: 11/01/16 (then twice weekly, Mon & Fri) CBC Date: 11/06/16 Imaging Orders: CXR prior to surgical appointment. Please budget 30 min to accomplish. Call or Fax Lab and Imaging Results to: [facility] (Alejandro): Attstephania Syed RN - Follow Up Care Current Providers and Referrals: Ori Allen DO [Doctor of Osteopathy] - 11/07/16 11:00 am Nicolette Reinoso NP [Primary Care Provider] - Uvaldo Enriquez MD [Medical Doctor] - follow up in 1 week
--- NOTE | 2016-10-29 16:14 | PDDCSUM ---
Discharge Summary Discharge Summary: DATE OF ADMISSION: 10/20/16 DATE OF DISCHARGE: 10/29/16 DISPOSITION: [facility] PRINCIPAL DISCHARGE DIAGNOSES: 1. Severe multivessel coronary artery disease treated with coronary artery bypass grafting x 2 2. Occluded right superficial femoral artery, incidental finding during cardiac cath 3. Postoperative paroxysmal atrial fibrillation with drug induced bradycardia contraindicating further use of antinodal therapy 4. Acute expected blood loss anemia with thrombocytopenia 5. Postoperative left pleural effusion treated with thoracentesis ALLERGIES/SENSITIVITIES: Diphenhydramine causing hyperactivity/agitation DISCHARGE MEDICATIONS: See medical administration record for details Essentially, as on admission (Protonix, MVI, Vit D3, Trazodone, Melatonin, ASA, Lipitor, Clobetasol 0.05% ointment) with the following adjustments: Stop magnesium oxide NEW prescriptions: 1. Eliquis 2.5 mg BID x 1 month or as directed by cardiology. 2. Lisinopril 2.5 mg hs. Hold for SBP < 120. 3. Torsemide 20 mg daily until back to baseline weight of 49 kg. 4. KlorCon 10 mEq daily with torsemide. 5. Thiamine 100 mg daily. 6. Tramadol 50 mg q 4h prn incisional pain. 7. Restoril 15 mg hs prn breakthrough insomnia. 8. Oxygen @ 1 Lpm rest and 2 Lpm ambulation, or as directed by SpO2. 9. Other prns: Simethicone, miralax, senokot, ocean spray nasal FOLLOW UP APPOINTMENTS: 1. CV surgery: with Dr Allen at [facility] on 11/07 at 11 am. 2. Cardiology: with Dr Enriquez at [facility] on 10/31 or as directed. FOLLOW UP TESTING: BMP on 11/01 and then twice weekly on Mon and Fri. Results to [facility]. CBC on 11/06. Results to [facility]. CXR prior to surgical appointment. CONSULTANTS: CV surgery (Alejandro), Pulmonology/critical care (Kita), EP cardiology (Sheron) PROCEDURES/IMAGIN/3 (Mina): Left heart catheterization with selective coronary angiography and left ventriculogram. Access via right femoral artery. Incidentally noted occlusion of right SFA. 10/19 (Kranthi): Coronary angiography with fractional flow reserve (0.73) of the left anterior descending artery. 10/20 (Alejandro): Coronary artery bypass grafting x 2 (DAMICO-LAD, SV-RCA). Takedown DAMICO. Endoscopic vein harvest left thigh. Prophylactic AtriClip ligation of the left atrial appendage. 10/28 (Tez): Ultrasound guided left thoracentesis. 600 ml evacuated. HISTORY OF PRESENT ILLNESS: 76 yo female undergoing cardiac clearance prior to carotid endarterectomy admitted for elective cardiac catheterization after a high risk exercise nuclear stress test demonstrating large anterior and inferior ischemic territories. PERTINENT PAST MEDICAL HISTORY: Asymptomatic carotid artery stenoses (75% DEL, 50% LICA), HTN, Dyslipidemia, Brief episode of atrial fibrillation while acutely ill, Gastroesophageal reflux , Insomnia, Tobacco abuse, Alcohol abuse, Electrolyte imbalance (hyponatremia and hypokalemia), Gait instability, Intermittent claudication (> 1 block). ABBREVIATED HOSPITAL COURSE BY ACTIVE PROBLEM LIST: 1. Severe multivessel CAD w preserved LV systolic fx - Small diffusely diseased coronaries. LCX system not amenable to grafting. 2V bypass well tolerated. No inotropic or pressor support. No neurologic dysfunction. Diuresis of moderate volume overload complicated by mild hyponatremia. Fluid restriction imposed and lasix switched to torsemide. Mag supplementation stopped as level > 2. Secondary prevention with ASA and statin. BB contraindicated d/t bradyarrhythmia. ACEI prn BP control. 2. Postoperative PAF - With intermittent RVR. Use of BB and amio compl by JR with 1-2 sec pauses req backup pacing. Seen by EP. Antinodals stopped. Pacer disconnected d/t undersensing. Ensuing rhythm WAP/AJR/SR with rates predominantly > 60. Antithrombotic prophylaxis with Eliquis for [id number] score of 4. Likely could transition to Plavix after CEA. 3. Acute expected blood loss anemia with thrombocytopenia - Stable s/p 3u PRBC. No evidence active bleeding. Platelet rebound noted. 4. Tobacco abuse - 50 pk yr hx, current someday smoker, suspected COPD. Extubated without incident. Small left pleural effusion evacuated by thoracentesis to optimize respiratory function. Stable secretion management with Acapella valve. Intention to stop smoking expressed. Cessation aids declined. 5. Hx of ETOH abuse - CIWA protocol. Wine with meals declined. No withdrawal sx.
[2016-10-30] MEDS ORDERED: POTASSIUM CL 10 MEQ TAB PO SCH (09:00)
[2016-10-30] MEDS ORDERED: TORSEMIDE 20 MG TAB PO SCH (10:00)
== END 2016-10-29 15:00 | DRG 234 ==
LOC: FCATH 09:33 → F2W 17:19 → F2N 10-20 09:56 → OBSVTOIN 10-20 10:44 → F2N 10-20 16:17 → F2W 10-23 18:04
PROVIDERS: ADMIT Internal Medicine Cardiovascular Disease; ATTEND Internal Medicine Cardiovascular Disease
DX: I25.10 Atherosclerotic heart disease of native coronary artery without angina pectoris (principal); D62 Acute posthemorrhagic anemia; E87.1 Hypo-osmolality and hyponatremia; J90 Pleural effusion, not elsewhere classified; I48.0 Paroxysmal atrial fibrillation; I10 Essential (primary) hypertension; E78.5 Hyperlipidemia, unspecified; K21.9 Gastro-esophageal reflux disease without esophagitis; G47.00 Insomnia, unspecified; Z72.0 Tobacco use; F10.10 Alcohol abuse, uncomplicated; J44.9 Chronic obstructive pulmonary disease, unspecified; I77.9 Disorder of arteries and arterioles, unspecified; M85.80 Other specified disorders of bone density and structure, unspecified site
CPT/HCPCS: 82947-QW; 92507-GN; 92523-GN; 92526-GN; 92610-GN; 97110-GP; 97116-GP; 97162-GP; 97165-GO; 97535-GO; C1769; C1887; G8978-GP-CK; G8979-GP-CI; G8987-GO-CL; G8988-GO-CI; G8996-GN-CJ; G8997-GN-CH; G8998-GN-CH; G9165-GN-CI; G9166-GN-CH; J0153; J0282; J0461; J0515; J0583; J0690; J1170; J1265; J1644; J1815; J1940; J2001; J2060; J2150; J2250; J2260; J2370; J2405; J2440; J2704; J2720; J2765; J2930; J3010; J3411; J7060; P9016; P9041; Q9967

== ENCOUNTER 2016-11-05 12:23 | Inpatient (IN) | payer OTHER ==
--- NOTE | 2016-11-05 12:35 | EDPHY ---
HPI/HX/ROS/PE/MDM Narrative: CHIEF COMPLAINT: Weakness, dyspnea, hyponatremia HPI: The patient is an anticoagulate 76 y/o female arriving via EMS from a rehab facility complaining of weakness and dyspnea onset 2 hours ago. She has a history of atrial fibrillation and had a CABG procedure 2 weeks ago. The facility arielle labs this morning that showed a sodium of 120 and a Hct of 24 that has decreased from 30 a few days ago. She currently feels nauseated and week. Her shortness of breath improved with O2 via nasal cannula. She notes she' s had an ongoing cough since starting new medications a few weeks ago. She denies any associated chest pain, fever, vomiting, diarrhea, abdominal pain, or other complaints. REVIEW OF SYSTEMS: Aside from elements discussed in the HPI, a comprehensive 10-point review of systems was reviewed and is negative. PMH: CABG, Atrial fibrillation - Eliquis, alcohol abuse, anemia, GERD, repeated falls, cognitive communication deficit, anxiety SOCIAL HISTORY: Currently resides at [facility], daughter at bedside Reviewed prior medical records including admission 07/14/16 for hypothermia. PHYSICAL EXAM: General:Patient is alert, in no acute distress. ENT:Eyes are normal to inspection. ENT inspection normal. Neck: Normal inspection. Full range of motion. Respiratory:No respiratory distress. Breath sounds normal bilaterally. Cardiovascular: Regular rate and rhythm. Strong peripheral pulses. Normal cap refill. Well-healing midline sternotomy incision. Abdomen:The abdomen is nontender to palpation. There are no peritoneal signs. Back: Normal to inspection. No tenderness to palpation. Skin: Normal color. No rash. Warm and dry. Extremities: Full range of motion. 2+ pedal edema bilaterally, extremities otherwise normal. Neuro: Oriented x3. Normal motor function. Normal sensory function. ED Course: IV, labs, EKG, chest x-ray. The 12 lead EKG was interpreted by myself. Sinus rhythm rate 77, similar to previous EKGs. See hard copy and/or "tracemaster" electronic copy for interpretation. Sodium 123 on ISTAT. Patient will be admitted to Dr. Silva for hyponatremia. MDM: This patient presents with generalized weakness and FTT. Her workup reveals hyponatremia and anemia. She will be admitted to hospitalist service. I see no signs of sepsis, ACS, TAD, wound infection, hemorrhagic shock or seizure. - Data Points Imaging Results: Imaging Impressions Chest X-Ray 11/05/16 12:30 Impression: Postoperative change with cardiomegaly and pulmonary vascular congestion, and increasing bibasilar pleural-parenchymal consolidation. If there is further clinical concern regarding the extent of free flowing pleural fluid, lateral decubitus views could be considered. Laboratory Results: Laboratory Results 11/05/16 12:15 11/05/16 12:15 11/05/16 11/05/16 11/05/16 12:24 12:15 12:15 WBC RBC Hgb POC Hgb 10.2 gm/dL L gm/dL (12.6-16.3) Hct POC Hct 30 % L % (38-47) MCV MCH MCHC RDW Plt Count MPV Neut % (Auto) Lymph % (Auto) [place] % (Auto) Eos % (Auto) Baso % (Auto) Nucleat RBC Rel Count Absolute Neuts (auto) Absolute Lymphs (auto) Absolute Monos (auto) Absolute Eos (auto) Absolute Basos (auto) Absolute Nucleated RBC Immature Gran % Immature Gran # PT 16.5 SEC H SEC (12.0-15.0) INR 1.33 H (0.83-1.16) APTT 34.3 SEC SEC (23.0-38.0) POC Sodium 123 mEq/L L mEq/L (134-144) Sodium 121 mEq/L L mEq/L (134-144) POC Potassium 4.4 mEq/L mEq/L (3.3-5.0) Potassium 4.6 mEq/L mEq/L (3.5-5.2) POC Chloride 81 mEq/L L mEq/L (97-110) Chloride 83 mEq/L L mEq/L (97-110) Carbon Dioxide 28 mEq/l mEq/l (22-31) Anion Gap 10 mEq/L mEq/L (8-16) POC BUN 6 mg/dL L mg/dL (7-23) BUN 8 mg/dL mg/dL (7-23) Creatinine 0.7 mg/dL mg/dL (0.6-1.0) POC Creatinine 0.7 mg/dL mg/dL (0.6-1.0) Estimated GFR > 60 Glucose 90 mg/dL mg/dL (70-100) POC Glucose 96 mg/dL mg/dL (70-100) Calcium 8.6 mg/dL mg/dL (8.5-10.4) Magnesium 1.4 mg/dL L mg/dL (1.6-2.3) Troponin I 0.071 ng/mL H ng/mL (0.000-0.034) NT-Pro-B Natriuret Pep 1830 pg/mL H pg/mL (0-450) 11/05/16 12:15 WBC 7.77 10^3/uL 10^3/uL (3.80-9.50) RBC 2.68 10^6/uL L 10^6/uL (4.18-5.33) Hgb 8.8 g/dL L g/dL (12.6-16.3) POC Hgb Hct 25.5 % L % (38.0-47.0) POC Hct MCV 95.1 fL fL (81.5-99.8) MCH 32.8 pg pg (27.9-34.1) MCHC 34.5 g/dL g/dL (32.4-36.7) RDW 14.7 % % (11.5-15.2) Plt Count 339 10^3/uL 10^3/uL (150-400) MPV 8.5 fL L fL (8.7-11.7) Neut % (Auto) 84.1 % H % (39.3-74.2) Lymph % (Auto) 4.6 % L % (15.0-45.0) [place] % (Auto) 9.1 % % (4.5-13.0) Eos % (Auto) 1.2 % % (0.6-7.6) Baso % (Auto) 0.5 % % (0.3-1.7) Nucleat RBC Rel Count 0.0 % % (0.0-0.2) Absolute Neuts (auto) 6.53 10^3/uL H 10^3/uL (1.70-6.50) Absolute Lymphs (auto) 0.36 10^3/uL L 10^3/uL (1.00-3.00) Absolute Monos (auto) 0.71 10^3/uL 10^3/uL (0.30-0.80) Absolute Eos (auto) 0.09 10^3/uL 10^3/uL (0.03-0.40) Absolute Basos (auto) 0.04 10^3/uL 10^3/uL (0.02-0.10) Absolute Nucleated RBC 0.00 10^3/uL 10^3/uL (0-0.01) Immature Gran % 0.5 % % (0.0-1.1) Immature Gran # 0.04 10^3/uL 10^3/uL (0.00-0.10) PT INR APTT POC Sodium Sodium POC Potassium Potassium POC Chloride Chloride Carbon Dioxide Anion Gap POC BUN BUN Creatinine POC Creatinine Estimated GFR Glucose POC Glucose Calcium Magnesium Troponin I NT-Pro-B Natriuret Pep Point of Care Test Results: 11/05/16 12:24 POC Sodium 123 L POC Potassium 4.4 POC Chloride 81 L POC BUN 6 L POC Creatinine 0.7 POC Glucose 96 General Initial Vital Signs: Initial Vital Signs Temperature (C) 36.7 C 11/05/16 12:30 Heart Rate 84 11/05/16 12:30 Respiratory Rate 20 11/05/16 12:30 Blood Pressure 140/63 H 11/05/16 12:30 O2 Sat (%) 85 L 11/05/16 12:30 O2 Delivery Mode Nasal Cannula O2 (L/minute) 2 Allergies/Adverse Reactions: diphenhydramine [From Benadryl] Allergy (Mild, Verified 10/19/16 11:08) hyperness, agitation Home Medications: Medication Instructions Recorded Multivitamins [Multivitamin (*)] 1 each PO DAILY tab 07/17/16 Pantoprazole Sodium [Protonix 40mg 40 mg PO DAILY tab 07/17/16 (*)] Cholecalciferol Vit D3 [Vitamin D3 2,000 units PO DAILY 10/16/16 (*)] Clobetasol 0.05% [Temovate 1 emre TP BID PRN 10/19/16 Ointment] Apixaban [Eliquis] 2.5 mg PO BID #0 tab 10/29/16 Lisinopril [Zestril 2.5 mg (*)] 2.5 mg PO HS #0 tab 10/29/16 Polyethylene Glycol 3350 [Miralax 17 gm PO DAILY PRN #0 pkt 10/29/16 17 gm (*)] Potassium Cl [Klor-Con 10 meq (RX)] 10 meq PO DAILY #0 tab 10/29/16 Sennosides/Docusate Sodium 1 - 2 tab PO BID PRN #0 tab 10/29/16 [Senokot-S] Simethicone [Mylicon] 80 mg PO PCHS PRN #0 tab.chew 10/29/16 Sodium Cl Nasal [[place] (*)] 1 spray EACHNARE PRN PRN #0 btl 10/29/16 Temazepam [Restoril 15 MG (*)] 15 mg PO HS PRN #0 cap 10/29/16 Thiamine HCl [Vitamin B-1] 100 mg PO DAILY #0 tab 10/29/16 Acetaminophen [Tylenol 325mg (*)] 650 mg PO Q4HRS PRN 11/05/16 Aspirin [Aspirin 81mg (*)] 81 mg PO DAILY 11/05/16 Atorvastatin Calcium [Lipitor 20 20 mg PO HS 11/05/16 mg (*)] Bisacodyl [Dulcolax] 10 mg UT DAILY PRN 11/05/16 Maalox:Lido:Benadryl 15 ml PO BID 11/05/16 Magnesium Hydroxide [Milk of 30 ml PO HS PRN 11/05/16 Magnesia] Ondansetron Odt [Zofran Odt 4 mg 4 mg PO Q4HRS PRN 11/05/16 (*)] Polyethylene Glycol 3350 [Miralax 17 gm PO DAILY 11/05/16 17 gm (*)] Torsemide [Demadex] 20 mg PO DAILY 11/05/16 traMADol [Ultram 50 mg (*)] 50 mg PO Q4HRS PRN 11/05/16 Departure - Departure Disposition: [facility] Inpatient Acute Clinical Impression: Hyponatremia, Weakness Anemia Qualifiers: Anemia type: unspecified type Qualified Code(s): D64.9 - Anemia, unspecified Condition: Fair Report Scribed for: Dakota Pillai Report Scribed by: Consuelo Walker Date of Report: 11/05/16 Time of Report: 12:35 Physician Review and Approval Statement: Portions of this note were transcribed by an ED scribe. I personally performed the history, physical exam, and medical decision making; and confirm the accuracy of the information in the transcribed note.
[2016-11-05 12:36] LABS: % IMMATURE GRANULYOCYTES 0.5 % (0.0-1.1); ABSOLUTE IMMATURE GRANULOCYTES 0.04 10^3/uL (0.00-0.10); ADD DIFF? NO; ADD MORPH? NO; ADD SCAN? NO; ATYPICAL LYMPHOCYTE FLAG 10 (0-99); FRAGMENT RBC FLAG 0 (0-99); HEMATOCRIT 25.5 % (38.0-47.0); HEMOGLOBIN 8.8 g/dL (12.6-16.3); LEFT SHIFT FLG 0 (0-99); LIPEMIA HEMOLYSIS FLAG 90 (0-99); MEAN CELL HEMOGLOBIN 32.8 pg (27.9-34.1); MEAN CELL HEMOGLOBIN CONCENTR. 34.5 g/dL (32.4-36.7); MEAN CELL VOLUME 95.1 fL (81.5-99.8); MEAN PLATELET VOLUME 8.5 fL (8.7-11.7); PLATELET CLUMPS FLAG 10 (0-99); PLATELET COUNT 339 10^3/uL (150-400); RED BLOOD CELL COUNT 2.68 10^6/uL (4.18-5.33); RED CELL DISTRIBUTION WIDTH 14.7 % (11.5-15.2)
--- NOTE | 2016-11-05 12:37 | CPEKG ---
Heart Rate: 77 RR Interval: 779 P-R Interval: 172 QRSD Interval: 72 QT Interval: 400 QTC Interval: 453 P [place]: 79 QRS [place]: 22 T Wave [place]: 24 EKG Severity - BORDERLINE ECG - EKG Impression: SINUS RHYTHM EKG Impression: LOW VOLTAGE THROUGHOUT EKG Impression: SINUS RHYTHM HAS REPLACED ACCELERATED JUNCTIONAL RHYTHM Electronically Signed By: Gus Hunter 06-Nov-2016 16:16:29
[2016-11-05 12:46] LABS: INR 1.33 (0.83-1.16); PROTIME(PATIENT) 16.5 SEC (12.0-15.0)
[2016-11-05 12:47] LABS: APTT 34.3 SEC (23.0-38.0)
[2016-11-05 12:50] LABS: ANION GAP 10 mEq/L (8-16); CALCIUM 8.6 mg/dL (8.5-10.4); CARBON DIOXIDE 28 mEq/l (22-31); CHLORIDE 83 mEq/L (97-110); CREATININE 0.7 mg/dL (0.6-1.0); GLOMERULAR FILTRATION RATE > 60; GLUCOSE 90 mg/dL (70-100); MAGNESIUM 1.4 mg/dL (1.6-2.3); POTASSIUM 4.6 mEq/L (3.5-5.2); SODIUM 121 mEq/L (134-144)
[2016-11-05 13:01] LABS: TROPONIN I 0.071 ng/mL (0.000-0.034)
[2016-11-05] MEDS ORDERED: SENNOSIDES/DOCUSATE SODIUM TAB PO PRN (14:27)
[2016-11-05] MEDS ORDERED: CLOBETASOL 0.05% 15 GM OINT TUBE TP PRN (14:27)
[2016-11-05] MEDS ORDERED: SIMETHICONE 80 MG TAB CHEW PO PRN (14:27)
[2016-11-05] MEDS ORDERED: POLYETHYLENE GLYCOL 3350 17 GM PKT PO PRN (14:27)
[2016-11-05] MEDS ORDERED: BISACODYL 10 MG SUPP PR PRN (14:27)
[2016-11-05] MEDS ORDERED: MAGNESIUM HYDROXIDE 30 ML UDCUP PO PRN (14:27)
[2016-11-05] MEDS ORDERED: ONDANSETRON DISINTEGRATING 4 MG TAB PO PRN ×2 (14:27→14:29)
[2016-11-05] MEDS ORDERED: SODIUM CL NASAL 45 ML BTL EACHNARE PRN (14:27)
[2016-11-05] MEDS ORDERED: ONDANSETRON 4 MG/2 ML VIAL IVP PRN (14:29)
[2016-11-05] MEDS ORDERED: ACETAMINOPHEN 325 MG TAB PO PRN (14:29)
[2016-11-05] MEDS ORDERED: FUROSEMIDE 40 MG/4 ML VIAL IVP ONE (14:37)
--- NOTE | 2016-11-05 15:21 | GHP ---
[f rep st] HISTORY AND PHYSICAL DATE OF ADMISSION: 11/05/2016 HISTORY OF PRESENT ILLNESS: The patient is a pleasant 76-year-old female with history of coronary a rtery disease and CABG 2 weeks ago. She was discharged shortly thereafter to a local rehabilitation place. She has been doing pretty well there, but she has been getting progressively weaker. She i s working with PT and OT. She states she has been eating poorly, but drinking fluids okay. She also notes some weakness and dyspnea. She has a dry cough. She did have a pleural effusion, re quiring thoracentesis post CABG. She has not had orthopnea or PND. She had lower extremity edema, but it has been getting less. She has been getting diuresed in the form of torsemide 20 mg daily as an outpatient. They arielle labs today, and she was found to be hyponatremic at 120 and a low hematocrit of 24. She d enies melena or bright red blood per rectum. She has also ongoing cough, is potentially attributable to having started an CLEOPATRA inhibitor a couple days ago during her last admission. REVIEW OF SYSTEMS: Complete 10-point review of systems conducted and negative, except as noted in t he HPI. PAST MEDICAL HISTORY: 1. COPD on the basis of long smoking history and chest x-ray. 2. Episode of hypothermia. 3. Alcoholism, now in remission. 4. Coronary artery disease, status post 2-vessel bypass on October 18. 5. Post CABG pleural effusion, requiring thoracentesis. There was brief atrial fibrillation. 6. Rhabdomyolysis in the setting of hypothermia. ALLERGIES: Benadryl. HOME MEDICATIONS: Tylenol, torsemide, apixaban, aspirin, atorvastatin, bisacodyl, vitamin D3, clobe tasol, lisinopril, Maalox, Benadryl, magnesium hydroxide, multivitamin, ondansetron, pantoprazole, M iraLAX, potassium, senna, docusate, simethicone, sodium chloride nasal spray, temazepam, thiamine, t ramadol. SOCIAL HISTORY: She lives in [place]. Daughter and granddaughter are present at the bedside. Quit alcohol. Quit tobacco. Previous heavy use of both. PHYSICAL EXAM: VITAL SIGNS: Presenting vitals are temp 36.7, blood pressure 140/63, pulse 84, liu thing 20 times a minute, 85% on room air and 98% on 2 L. GENERAL: No acute distress. HEENT: Scle rafiq anicteric. Oropharynx clear. Mucous membranes moist. NECK: Supple, without lymphadenopathy o r JVD. LUNGS: Clear to auscultation. HEART: S1, S2. Without murmurs. CHEST: Her sternotomy in cision is clean, dry and intact. ABDOMEN: Soft, nontender, nondistended. LOWER EXTREMITIES: 2+ e sudha bilaterally. Calves are nontender. I am unable see her saphenous vein harvest site. It is in her proximal thigh and she is wearing pants. SKIN: Without rash. NEUROLOGIC: Nonfocal. LABS: White count 7.8, hemoglobin 8.8, hematocrit 25.5, platelets are 339. These are slightly lowe r than her discharge values. INR is 1.33. Sodium is 121, potassium 4.6, chloride 83, bicarb 28, BU N 8, creatinine 0.7. Magnesium is low at 1.4. Troponin 0.71. BNP is 1830, which is high for her. Of note, her sodium was 127 on the day of discharge. Chest x-ray, interpreted by me, shows cardiomegaly with pulmonary vascular congestion and pleural pa renchymal consolidation. EKG, interpreted by me, shows her sinus at 77 with low voltage normal axis and intervals. No ST or T-wave changes. She did have low voltage prior, although it is perhaps a bit less. We discussed the case with Dr. Daokta Pillai. ASSESSMENT AND PLAN: A 76-year-old female who presents with post coronary artery bypass graft dyspn ea, hyponatremia and weakness. 1. Hyponatremia. This is poor oral intake in the setting of diuretics. I put her on a regular, no t a cardiac, diet. We will encourage p.o., and I will write her for some Boost as well. I think it is reasonable to continue diuretics. This is only about 6 points lower than what she was at [facility], so I do not have a great deal of concern, and she does not appear to be symptomatic from it. 2. Congestive heart failure. I do have concern she may have a mild volume overload. This is not u ncommon following bypass. We will continue diuresing her. I have given her a dose of Lasix. I do acknowledge the possibility of tamponade. Echo has been ordered. I will follow her response to diu retic. She is not hypotensive or tachycardic at this time. 3. Anemia. This is postoperative anemia. We will follow. 4. Prophylaxis. She is therapeutically anticoagulated. 5. Atrial fibrillation. She had postoperative atrial fibrillation and is on Eliquis. 6. Cough. This may be secondary to pleural effusion, but we will hold her CLEOPATRA inhibitor and see if it gets better. 7. Question pleural effusion addendum and order a lateral decubitus. DISPOSITION: Inpatient status, PCU. /[id number]/MODL
--- NOTE | 2016-11-05 16:00 | ECHO ---
[id number] + + [address] : : [place] [address] : : [phone] + Adult Echocardiographic Report + --------+ :Name: LAUREN FERNANDES MStudy Date: 11/05/2016 02:57 PM : : Hospital Admission Number: [id number] Locat ion: 204: :: 1940 Gender: Female Height: 61 in : :Age: 76 yrs Race: WH Weight: 116 l b : :Reason For Study: SOB, tamponade? : : BSA: 1.5 mete rs2 : :History: [place] : + --------+ Left Ventricle The left ventricle is normal in size. Left ventricular systolic function is normal. Right Ventricle The right ventricle is normal in size and function. Pericardium/Pleural Fat pad versus pericardial effusion. There is a moderate pleural effusion. Conclusion This is a limited echo to evaluate for pericardial effusion. Limited windows available due to surgical dressings. The left ventricle is normal in size. Left ventricular systolic function is normal. The right ventricle is normal in size and function. Probable epicardial fat pad. Cannot rule out an organized effusion. No evidence of right ventricular compromise There is a moderate pleural effusion. Final Reading Physician: Jamie Hidalgo signed on 11/05/2016 03:59 PM Ordering Physician: Dakota Pillai Performed By: Yadi Yoo
[2016-11-05] MEDS: TIOTROPIUM INHALER 18 MCG/DOSE 5 DOSE/MDI IH SCH (16:47)
[2016-11-05] MEDS: guaiFENesin/CODEINE PHOS 10 ML UDCUP PO PRN (17:00)
[2016-11-05] MEDS: ATORVASTATIN CALCIUM 20 MG TAB PO SCH (20:04)
[2016-11-05] MEDS: traMADol 50 MG TAB PO PRN ×2 (20:04→23:51)
[2016-11-05] MEDS: APIXABAN 2.5 MG TAB PO SCH (20:04)
[2016-11-05] MEDS: MBX SOLN 30 ML BOTTLE PO SCH (20:11)
[2016-11-05] MEDS ORDERED: [UNRECOGNIZED DRUG - OTHER] PO SCH (21:00)
[2016-11-05] MEDS ORDERED: LISINOPRIL 2.5 MG TAB PO SCH (21:00)
[2016-11-05] MEDS: TEMAZEPAM 15 MG CAP PO PRN (23:50)
[2016-11-06] MEDS: guaiFENesin/CODEINE PHOS 10 ML UDCUP PO PRN ×2 (03:42→09:20)
[2016-11-06 04:46] LABS: % IMMATURE GRANULYOCYTES 0.6 % (0.0-1.1); ABSOLUTE IMMATURE GRANULOCYTES 0.03 10^3/uL (0.00-0.10); ADD DIFF? NO; ADD MORPH? NO; ADD SCAN? NO; ATYPICAL LYMPHOCYTE FLAG 20 (0-99); FRAGMENT RBC FLAG 30 (0-99); HEMATOCRIT 24.9 % (38.0-47.0); HEMOGLOBIN 8.4 g/dL (12.6-16.3); LEFT SHIFT FLG 0 (0-99); LIPEMIA HEMOLYSIS FLAG 80 (0-99); MEAN CELL HEMOGLOBIN 32.7 pg (27.9-34.1); MEAN CELL HEMOGLOBIN CONCENTR. 33.7 g/dL (32.4-36.7); MEAN CELL VOLUME 96.9 fL (81.5-99.8); MEAN PLATELET VOLUME 8.7 fL (8.7-11.7); PLATELET CLUMPS FLAG 10 (0-99); PLATELET COUNT 443 10^3/uL (150-400); RED BLOOD CELL COUNT 2.57 10^6/uL (4.18-5.33); RED CELL DISTRIBUTION WIDTH 14.8 % (11.5-15.2)
[2016-11-06 05:07] LABS: ANION GAP 3 mEq/L (8-16); CALCIUM 8.4 mg/dL (8.5-10.4); CARBON DIOXIDE 33 mEq/l (22-31); CHLORIDE 87 mEq/L (97-110); CREATININE 0.8 mg/dL (0.6-1.0); GLOMERULAR FILTRATION RATE > 60; GLUCOSE 86 mg/dL (70-100); POTASSIUM 4.4 mEq/L (3.5-5.2); SODIUM 123 mEq/L (134-144)
[2016-11-06] MEDS: traMADol 50 MG TAB PO PRN ×3 (05:40→23:14)
[2016-11-06] MEDS: POLYETHYLENE GLYCOL 3350 17 GM PKT PO SCH (09:18)
[2016-11-06] MEDS: POTASSIUM CL 10 MEQ TAB PO SCH (09:18)
[2016-11-06] MEDS: MULTIVITAMINS 1 EACH TAB PO SCH (09:19)
[2016-11-06] MEDS: ASPIRIN 81 MG CHEWABLE TAB PO SCH (09:19)
[2016-11-06] MEDS: PANTOPRAZOLE SODIUM 40 MG TAB PO SCH (09:19)
[2016-11-06] MEDS: THIAMINE HCL 100 MG TAB PO SCH (09:19)
[2016-11-06] MEDS: CHOLECALCIFEROL VIT D3 1,000 UNITS TAB PO SCH (09:19)
[2016-11-06] MEDS: APIXABAN 2.5 MG TAB PO SCH ×2 (09:19→22:00)
[2016-11-06] MEDS: MBX SOLN 30 ML BOTTLE PO SCH ×2 (09:24→22:01)
[2016-11-06] MEDS: TIOTROPIUM INHALER 18 MCG/DOSE 5 DOSE/MDI IH SCH (09:29)
[2016-11-06] MEDS ORDERED: FUROSEMIDE 40 MG/4 ML VIAL IVP ONE ×2 (12:06→16:02)
[2016-11-06 15:09] LABS: ANION GAP 9 mEq/L (8-16); CALCIUM 8.6 mg/dL (8.5-10.4); CARBON DIOXIDE 29 mEq/l (22-31); CHLORIDE 85 mEq/L (97-110); CREATININE 0.7 mg/dL (0.6-1.0); GLOMERULAR FILTRATION RATE > 60; GLUCOSE 103 mg/dL (70-100); POTASSIUM 4.3 mEq/L (3.5-5.2); SODIUM 123 mEq/L (134-144)
--- NOTE | 2016-11-06 16:07 | HOSPPROG ---
Hospitalist Progress Note Assessment/Plan: Assessment: 76-year-old female presents with acute weakness in the setting of acute on chronic hyponatremia, hypoxia, acute on chronic diastolic congestive heart failure Plan: 1. Hyponatremia. Acute on chronic, most likely contributing to some of her weakness, most likely down trending in the setting of renal hypoperfusion from poor cardiac output and mild diastolic CHF -repeated afternoon serum sodium level, study 123 -continue IV diuresis, repeat serum sodium level tomorrow a.m. 2. Diastolic congestive heart failure exacerbation. Acute on chronic, ejection fraction normal on echo, chest x-ray demonstrating mobile right-sided effusion, with BNP of 2200, hypoxia and troponin 0.07 -she received therapeutic thoracentesis during her last hospitalization -she is maintaining good urine output with IV diuretics, will continue and avoid additional procedure if possible -may transition to oral torsemide tomorrow 20 mg twice daily -continue to monitor urine output, monitor serum creatinine level 3. Coronary artery disease. Chronic, continue home medications including aspirin and statin 4. Paroxysmal atrial fibrillation. Provoked by cardiothoracic surgery, placed on Eliquis for CVA prevention -discussed with pharmacy, would recommend 5 mg twice daily as the appropriate dosing for CVA prevention, will related to her cardiothoracic surgery team 5. Chronic hypoxic respiratory failure. Secondary to recent CT surgery with resultant pleural effusion -counseled the patient and her family that although she may be able to be weaned from supplemental oxygen at rest, would recommend ongoing supplemental oxygen with activity Diet. Regular Prophylaxis. High risk patient, currently on systemic anticoagulation Code. Full Disposition. Anticipated discharge is 11/07, pending improvement in serum sodium level and stabilization after receiving IV diuretics Subjective: Counseled the patient and family extensively regarding the multifactorial causes of her weakness, patient has been working with physical therapy to ambulate around the unit Objective: Vital Signs Temp Pulse Resp BP Pulse Ox 36.6 C 94 22 H 153/79 H 97 11/06/16 11:30 11/06/16 11:30 11/06/16 11:30 11/06/16 11:30 11/06/16 11:30 Laboratory Results 11/06/16 03:33 11/06/16 Unknown 11/05/16 11/06/16 11/07/16 05:59 05:59 05:59 Intake Total 50 Output Total 400 Balance -350 PT 16.5 SEC (12.0-15.0) H 08/20/17 12:15 INR 1.33 (0.83-1.16) H 11/05/16 12:15 - Time Spent With Patient Time Spent with Patient: greater than 35 minutes Time Spent with Patient: Greater than 35 minutes spent on this patients care, greater than 50% of time spent counseling, educating, and coordinating care regarding the above mentioned plan. - Pending Discharge Pending Discharge Within 24 Hours: Yes Pending Discharge Date: 11/07/16 Pending Discharge Time: 11:00 - Physical Exam Constitutional: no apparent distress, not in pain, chronically ill appearing, No uncomfortable Cardiovascular: regular rate and rhythym, no murmur, rub, or gallop, edema ( Trace bilateral lower extremity), No irregularly irregular, No tachycardia Respiratory: reduced air movement (Right base), inspiratory crackles (Right base ), No expiratory wheeze, No bronchial breath sounds Gastrointestinal: normoactive bowel sounds, soft, non-tender abdomen, no palpable masses Neurologic: AAOx3 Psychiatric: interacting appropriately, not anxious, not encephalopathic, thought process linear ICD10 Worksheet Patient Problems: Problems Problem Status Onset Anemia Acute Hyponatremia Acute Weakness Acute Acute blood loss anemia Acute CAD in [place] artery Acute Chronic Disease Mgmt/Transitional Care Acute Paroxysmal atrial fibrillation Acute S/P CABG x 2 Acute ~10/20/16 Alcohol abuse Chronic
[2016-11-06] MEDS ORDERED: LIDOCAINE 1% 300 MG/30 ML SDV ONE (17:34)
[2016-11-06] MEDS: ATORVASTATIN CALCIUM 20 MG TAB PO SCH (22:00)
[2016-11-06] MEDS: TEMAZEPAM 15 MG CAP PO PRN (23:14)
[2016-11-07 04:10] LABS: % IMMATURE GRANULYOCYTES 0.4 % (0.0-1.1); ABSOLUTE IMMATURE GRANULOCYTES 0.02 10^3/uL (0.00-0.10); ADD DIFF? NO; ADD MORPH? NO; ADD SCAN? NO; ATYPICAL LYMPHOCYTE FLAG 10 (0-99); FRAGMENT RBC FLAG 0 (0-99); HEMATOCRIT 25.5 % (38.0-47.0); HEMOGLOBIN 8.6 g/dL (12.6-16.3); LEFT SHIFT FLG 0 (0-99); LIPEMIA HEMOLYSIS FLAG 80 (0-99); MEAN CELL HEMOGLOBIN 32.5 pg (27.9-34.1); MEAN CELL HEMOGLOBIN CONCENTR. 33.7 g/dL (32.4-36.7); MEAN CELL VOLUME 96.2 fL (81.5-99.8); MEAN PLATELET VOLUME 8.5 fL (8.7-11.7); PLATELET CLUMPS FLAG 0 (0-99); PLATELET COUNT 324 10^3/uL (150-400); RED BLOOD CELL COUNT 2.65 10^6/uL (4.18-5.33)
[2016-11-07 04:52] LABS: ANION GAP 10 mEq/L (8-16); CALCIUM 8.4 mg/dL (8.5-10.4); CARBON DIOXIDE 30 mEq/l (22-31); CHLORIDE 86 mEq/L (97-110); CREATININE 0.7 mg/dL (0.6-1.0); GLOMERULAR FILTRATION RATE > 60; GLUCOSE 108 mg/dL (70-100); POTASSIUM 4.4 mEq/L (3.5-5.2); SODIUM 126 mEq/L (134-144)
[2016-11-07] MEDS: traMADol 50 MG TAB PO PRN ×2 (04:52→18:57)
[2016-11-07] MEDS: MULTIVITAMINS 1 EACH TAB PO SCH (08:45)
[2016-11-07] MEDS: THIAMINE HCL 100 MG TAB PO SCH (08:45)
[2016-11-07] MEDS: APIXABAN 2.5 MG TAB PO SCH ×2 (08:45→22:29)
[2016-11-07] MEDS: PANTOPRAZOLE SODIUM 40 MG TAB PO SCH (08:45)
[2016-11-07] MEDS: POTASSIUM CL 10 MEQ TAB PO SCH (08:45)
[2016-11-07] MEDS: ASPIRIN 81 MG CHEWABLE TAB PO SCH (08:45)
[2016-11-07] MEDS: CHOLECALCIFEROL VIT D3 1,000 UNITS TAB PO SCH (08:45)
[2016-11-07] MEDS: POLYETHYLENE GLYCOL 3350 17 GM PKT PO SCH (08:46)
[2016-11-07] MEDS: FUROSEMIDE 40 MG/4 ML VIAL IVP SCH ×2 (08:46→15:49)
[2016-11-07] MEDS: MBX SOLN 30 ML BOTTLE PO SCH ×2 (08:53→22:36)
[2016-11-07] MEDS: TIOTROPIUM INHALER 18 MCG/DOSE 5 DOSE/MDI IH SCH (09:16)
--- NOTE | 2016-11-07 18:18 | HOSPPROG ---
Hospitalist Progress Note Assessment/Plan: Assessment: 76-year-old female presents with acute weakness in the setting of acute on chronic hyponatremia, hypoxia, acute on chronic diastolic congestive heart failure Plan: 1. Hyponatremia. Acute on chronic, most likely contributing to some of her weakness, most likely down trending in the setting of renal hypoperfusion from poor cardiac output and mild diastolic CHF -repeated sNa 126 s/p diuresis -continue to monitor 2. Diastolic congestive heart failure exacerbation. Acute on chronic, ejection fraction normal on echo, chest x-ray demonstrating mobile right-sided effusion, with BNP of 2200, hypoxia and troponin 0.07 -pleural effusion on R improved w/ CXR (personally interpreted) -she received therapeutic thoracentesis on R, d/w Dr. Allen and he recommends thora on L today -cont IV lasix -plan on bid dosing of torsemide on discharge -counseled patient and family on the pathophysiology of CHF 3. Coronary artery disease. Chronic, continue home medications including aspirin and statin 4. Paroxysmal atrial fibrillation. Provoked by cardiothoracic surgery, placed on Eliquis for CVA prevention -discussed with pharmacy, would recommend 5 mg twice daily as the appropriate dosing for CVA prevention, will related to her cardiothoracic surgery team 5. Chronic hypoxic respiratory failure. Secondary to recent CT surgery with resultant pleural effusion -counseled the patient and her family that although she may be able to be weaned from supplemental oxygen at rest, would recommend ongoing supplemental oxygen with activity Diet. Regular Prophylaxis. High risk patient, currently on systemic anticoagulation Code. Full Disposition. Anticipated discharge is 11/08, pending successful thora on L, ongoing IV diuresis Subjective: patient reports less cough s/p thora on R Objective: Vital Signs Temp Pulse Resp BP Pulse Ox 36.4 C 88 14 104/66 91 L 11/07/16 16:00 11/07/16 16:00 11/07/16 16:00 11/07/16 16:00 11/07/16 16:00 Laboratory Results 11/07/16 03:46 11/07/16 03:46 11/06/16 11/07/16 11/08/16 05:59 05:59 05:59 Intake Total 50 450 275 Output Total 700 Balance -650 450 275 PT 16.5 SEC (12.0-15.0) H 11/05/16 12:15 INR 1.33 (0.83-1.16) H 11/05/16 12:15 - Time Spent With Patient Time Spent with Patient: greater than 35 minutes Time Spent with Patient: Greater than 35 minutes spent on this patients care, greater than 50% of time spent counseling, educating, and coordinating care regarding the above mentioned plan. - Pending Discharge Pending Discharge Within 24 Hours: Yes Pending Discharge Date: 11/08/16 Pending Discharge Time: 11:00 - Physical Exam Constitutional: no apparent distress, not in pain, chronically ill appearing, No uncomfortable Cardiovascular: systolic murmur (II/ at sternum), edema (trace bilat LE), No irregularly irregular, No tachycardia Respiratory: reduced air movement (L base), inspiratory crackles (R base), No expiratory wheeze, No bronchial breath sounds Gastrointestinal: normoactive bowel sounds, soft, non-tender abdomen, no palpable masses Skin: other (no erythema around thora site) Neurologic: AAOx3 Psychiatric: interacting appropriately, not anxious, not encephalopathic, thought process linear ICD10 Worksheet Patient Problems: Problems Problem Status Onset Hyponatremia Acute Weakness Acute Anemia Acute Chronic Disease [facility]/Transitional Care Acute Alcohol abuse Chronic Paroxysmal atrial fibrillation Acute Acute blood loss anemia Acute S/P CABG x 2 Acute ~10/20/16 CAD in [place] artery Acute
[2016-11-07] MEDS: ATORVASTATIN CALCIUM 20 MG TAB PO SCH (22:29)
[2016-11-08] MEDS: TEMAZEPAM 15 MG CAP PO PRN (00:07)
[2016-11-08] MEDS: traMADol 50 MG TAB PO PRN ×2 (00:07→05:25)
[2016-11-08] MEDS: POLYETHYLENE GLYCOL 3350 17 GM PKT PO SCH (09:26)
[2016-11-08] MEDS: FUROSEMIDE 40 MG/4 ML VIAL IVP SCH ×2 (09:26→15:19)
[2016-11-08] MEDS: MULTIVITAMINS 1 EACH TAB PO SCH (09:27)
[2016-11-08] MEDS: ASPIRIN 81 MG CHEWABLE TAB PO SCH (09:27)
[2016-11-08] MEDS: THIAMINE HCL 100 MG TAB PO SCH (09:28)
[2016-11-08] MEDS: APIXABAN 2.5 MG TAB PO SCH (09:28)
[2016-11-08] MEDS: CHOLECALCIFEROL VIT D3 1,000 UNITS TAB PO SCH (09:28)
[2016-11-08] MEDS: PANTOPRAZOLE SODIUM 40 MG TAB PO SCH (09:28)
[2016-11-08] MEDS: POTASSIUM CL 10 MEQ TAB PO SCH (09:29)
[2016-11-08] MEDS: TIOTROPIUM INHALER 18 MCG/DOSE 5 DOSE/MDI IH SCH (09:51)
[2016-11-08 10:47] LABS: HEMATOCRIT 27.7 % (38.0-47.0); HEMOGLOBIN 9.3 g/dL (12.6-16.3)
[2016-11-08 11:17] LABS: ANION GAP 9 mEq/L (8-16); CALCIUM 8.5 mg/dL (8.5-10.4); CARBON DIOXIDE 32 mEq/l (22-31); CHLORIDE 84 mEq/L (97-110); CREATININE 0.7 mg/dL (0.6-1.0); GLOMERULAR FILTRATION RATE > 60; GLUCOSE 128 mg/dL (70-100); POTASSIUM 3.6 mEq/L (3.5-5.2); SODIUM 125 mEq/L (134-144)
[2016-11-08] MEDS: MBX SOLN 30 ML BOTTLE PO SCH (11:30)
[2016-11-08] MEDS ORDERED: MAGNESIUM CITRATE 300 ML BOTTLE PO ONE (12:09)
--- NOTE | 2016-11-08 12:41 | PDIAF ---
- Diagnosis Diagnosis: Acute diastolic CHF, pleural effusions, acute on chornic hyponatremia Code Status: Full Code - Medication Management Discharge Medications: Medications to Continue on Transfer Multivitamins [Multivitamin (*)] 1 each PO DAILY tab 07/17/16 [Last Taken 11/05] Pantoprazole Sodium [Protonix 40mg (*)] 40 mg PO DAILY tab 07/17/16 [Last Taken 11/05/16] Cholecalciferol Vit D3 [Vitamin D3 (*)] 2,000 units PO DAILY 10/16/16 [Last Taken 10/18/16] Clobetasol 0.05% [Temovate Ointment] 1 emre TP BID PRN 10/19/16 [Last Taken 10/18] Apixaban [Eliquis] 2.5 mg PO BID #0 tab 10/29/16 [Last Taken 11/05/16] Lisinopril [Zestril 2.5 mg (*)] 2.5 mg PO HS #0 tab 10/29/16 [Last Taken ] Polyethylene Glycol 3350 [Miralax 17 gm (*)] 17 gm PO DAILY PRN #0 pkt 10/29/16 [Last Taken Unknown] Potassium Cl [Klor-Con 10 meq (RX)] 10 meq PO DAILY #0 tab 10/29/16 [Last Taken 11/05/16] Sennosides/Docusate Sodium [Senokot-S] 1 - 2 tab PO BID PRN #0 tab 10/29/16 [ Last Taken Unknown] Simethicone [Mylicon] 80 mg PO PCHS PRN #0 tab.chew 10/29/16 [Last Taken Unknown ] Sodium Cl Nasal [Peters Melvin (*)] 1 spray EACHNARE PRN PRN #0 btl 10/29/16 [ Last Taken Unknown] Temazepam [Restoril 15 MG (*)] 15 mg PO HS PRN #0 cap 10/29/16 [Last Taken 11/04] Thiamine HCl [Vitamin B-1] 100 mg PO DAILY #0 tab 10/29/16 [Last Taken 11/05/16] Acetaminophen [Tylenol 325mg (*)] 650 mg PO Q4HRS PRN 11/05/16 [Last Taken 11/03] Aspirin [Aspirin 81mg (*)] 81 mg PO DAILY 11/05/16 [Last Taken 11/05/16] Atorvastatin Calcium [Lipitor 20 mg (*)] 20 mg PO HS 11/05/16 [Last Taken ] Bisacodyl [Dulcolax] 10 mg SC DAILY PRN 11/05/16 [Last Taken 10/29/16] Maalox:Lido:Benadryl 15 ml PO BID 11/05/16 [Last Taken 11/04/16] Magnesium Hydroxide [Milk of Magnesia] 30 ml PO HS PRN 11/05/16 [Last Taken Unknown] Ondansetron Odt [Zofran Odt 4 mg (*)] 4 mg PO Q4HRS PRN 11/05/16 [Last Taken ] Polyethylene Glycol 3350 [Miralax 17 gm (*)] 17 gm PO DAILY 11/05/16 [Last Taken 11/05/16] traMADol [Ultram 50 mg (*)] 50 mg PO Q4HRS PRN 11/05/16 [Last Taken 11/04/16] Acetaminophen [Tylenol 325mg (*)] 650 mg PO Q4HRS PRN #0 tab 11/08/16 [Last Taken Unknown] Torsemide [Demadex] 20 mg PO BIDDIUR #60 tab 11/08/16 [Last Taken Unknown] Buckle Attacher Antibiotics: NA Discharge Medications: Refer to the Discharge Home Medication list for PRN reason. PICC Care - Routine: N/A - Orders Services needed: Registered Nurse, Physical Therapy, Occupational Therapy Oxygen: 3LPM Diet Recommendation: no restrictions on diet, fluid restriction (use comment for amount) (1.5L/day (free water)) Weigh Patient: daily Zamora: Not applicable Activity/Weight Bearing Restrictions: as tolerated - Labs/Radiology BMP Date: 11/10/16 (repeat on 11/13) Call or Fax Lab and Imaging Results to: Dr. Allen - Follow Up Care Current Providers and Referrals: Patient,NotPresent [Unknown] - As per Instructions Ori Allen DO [Doctor of Osteopathy] - follow up in 1 week (please schedule follow-up next week)
--- NOTE | 2016-11-08 12:48 | PDDCSUM ---
Discharge Summary Discharge Summary: DISCHARGE SUMMARY FOLLOW-UP ITEMS: Repeat creatinine BUN and lytes on Sunday and Sunday DATE OF ADMISSION: 11/05/2016 DATE OF DISCHARGE: 11/08/2016 DISCHARGE DIAGNOSES: 1. Acute on chronic diastolic congestive heart failure exacerbation 2. Acute on chronic hyponatremia 3. Chronic coronary artery disease 4. Paroxysmal atrial fibrillation 5. Chronic hypoxic respiratory failure 6. Recurrent pleural effusions 7. Constipation CONSULTATIONS: Cardiothoracic surgery PROCEDURES / IMAGING: Thoracentesis on right using 1.2 L of fluid, thoracentesis on left 550 mL of fluid, echocardiogram demonstrating no tamponade, and preserved ejection fraction CHIEF COMPLAINT: Acute weakness SUBJECTIVE: Patient is feeling well at time of discharge, she is ambulating well with physical therapy PHYSICAL EXAM ON DISCHARGE: Systolic blood pressure is 110, heart rate is 80, satting well on 3 L nasal cannula, net-1 kg overnight, net-2.5 kg length of stay, lungs have some inspiratory crackles in the bilateral bases, trace bilateral lower extremity edema, heart rhythm is regular LABS ON DISCHARGE: Serum sodium level 125 HOSPITAL COURSE BY PROBLEM: 1. Acute on chronic diastolic congestive heart failure exacerbation. Evidenced by bilateral lower extremity edema comma chest x-ray demonstrating pleural effusion, BNP of 2200, hypoxia, marginally elevated troponin level. Patient's exacerbation is most likely secondary to inadequate dosing of torsemide as well as recurrent pleural effusions following CABG. Patient received IV Lasix and also underwent 2 therapeutic thoracentesis. She will be discharged on torsemide 20 mg twice daily which is an increase from her previous once daily dosing. She will follow up with Dr. Allen next week. 2. Acute on chronic hyponatremia. Serum sodium level 120 on presentation, most likely contributing to some of her weakness, most likely down trending in the setting of renal hypoperfusion and poor cardiac output from her mild CHF exacerbation. We actively diuresed and her serum sodium level improved. She plateaued at 126, and was at 125 at time of discharge. Her baseline serum sodium level is around 129. She is safe to be discharged home with ongoing diuresis, as well as free water fluid restrictions. We advised the patient to limit her free water intake to 1.5 L per day, and to attempt to consume only fluids with solute content. Should have a repeat serum sodium level this Sunday and next Sunday to be followed up at the cardiothoracic surgery Office 3. Chronic coronary artery disease. Patient was continued on her home aspirin and statin. 4. Paroxysmal atrial fibrillation. This was provoked by cardiothoracic surgery and she has been placed on Eliquis for CVA prevention. I discussed this with the cardiothoracic team and they recommended ongoing 2.5 mg twice daily dosing, given her fall risk. The patient's weight based recommended dosing is 5 mg but given her fall risk and risk of bleed postoperatively, 2.5 mg twice daily will be what she is continued in the short term. 5. Chronic hypoxic respiratory failure. Although the patient was recently weaned to room air at rest, I would not recommend that she remain off of supplemental oxygen while she is at rehab. The patient will most likely become hypoxic with physical activity and rehab, which can resulting weakness, similar to her presentation. I recommend that the patient remain on supplemental oxygen and wean attempts are made comma these attempts should be documented during activity rather than at rest, so that one can ascertain whether she requires ongoing oxygen while engaging in therapy. 6. Pleural effusions. Patient had bilateral postoperative pleural effusions, both these were therapeutically tapped. 7. Constipation. Patient had some constipation during this hospitalization, we utilized aggressive bowel regimen, she moved her bowels prior to discharge. DISCHARGE MEDICATIONS: Please see official discharge medication reconciliation sheet in chart , torsemide increased to 20 mg twice daily. DISCHARGE INSTRUCTIONS: Please schedule follow-up in the cardiothoracic surgery office next week and have labs drawn prior to that appointment. TIME SPENT: Greater than 30 minutes were spent on direct patient care, as well as discharge planning and preparation.
[2016-11-08 15:11] VITALS: BP 122/60; PULSE 101; RESP 14; TEMP 98.4; O2SAT 96
== END 2016-11-08 16:06 | DRG 640 ==
LOC: EDUNIT# → F2W 14:23 → OBSVTOIN 14:29
PROVIDERS: ADMIT Family Medicine; ATTEND Family Medicine
PROC: 0W993ZZ Drainage of Right Pleural Cavity, Percutaneous Approach (ICD-10-PCS; principal; 2016-11-06)
PROC: 0W9B3ZZ Drainage of Left Pleural Cavity, Percutaneous Approach (ICD-10-PCS; 2016-11-07)
DX: E87.1 Hypo-osmolality and hyponatremia (principal); I50.33 Acute on chronic diastolic (congestive) heart failure; J96.11 Chronic respiratory failure with hypoxia; K59.00 Constipation, unspecified; I48.0 Paroxysmal atrial fibrillation; I25.10 Atherosclerotic heart disease of native coronary artery without angina pectoris; Z95.1 Presence of aortocoronary bypass graft; J44.9 Chronic obstructive pulmonary disease, unspecified; D64.9 Anemia, unspecified
CPT/HCPCS: 82947-QW; 97116-GP; 97161-GP; 97166-GO; 97535-GO; G8978-GP-CJ; G8979-GP-CI; G8987-GO-CJ; G8988-GO-CI; G8989-GO-CJ; J1940

== ENCOUNTER → 2016-11-21 | Outpatient (CLI) | payer OTHER | LOC: FIMAGING 13:45 | PROVIDERS: ATTEND Thoracic Surgery (Cardiothoracic Vascular Surgery) | DX: J90 Pleural effusion, not elsewhere classified (principal); M89.8X1 Other specified disorders of bone, shoulder; Z95.1 Presence of aortocoronary bypass graft ==

== ENCOUNTER → 2016-12-05 | Outpatient (CLI) | payer OTHER | LOC: EDSTATUS 11:32 → FIMAGING 12:59 → FLAB 12:59 | PROVIDERS: ATTEND Thoracic Surgery (Cardiothoracic Vascular Surgery) | DX: J90 Pleural effusion, not elsewhere classified (principal); J98.11 Atelectasis ==

== ENCOUNTER 2017-05-08 10:17 | Inpatient (IN) | payer OTHER ==
[2017-07-10] MEDS ORDERED: LIDOCAINE 1% 2 ML INJ ID PRN (12:17)
[2017-07-10] MEDS ORDERED: LR 1,000 ML IV ONE (12:17)
--- NOTE | 2017-07-10 12:55 | PDHPUP ---
History & Physical Update H&P update statement: This history and physical update is based on an assessment of the patient which was completed after admission or registration (within 24 hours), but prior to the surgery/procedure. H&P update: H&P reviewed & patient examined, no change in patient's condition since H&P completed
[2017-07-10] MEDS ORDERED: BUPIVACAINE 0.25% 30 ML SDV ONE (13:21)
[2017-07-10] MEDS ORDERED: BUPIVACAINE/EPI 0.5% 30 ML SDV ONE (13:21)
[2017-07-10] MEDS ORDERED: CHLORHEXIDINE GLUCONATE 15 ML UDL ONE (13:22)
[2017-07-10] MEDS ORDERED: THROMBIN (BOVINE) 5,000 UNIT VIAL TP ONE (13:22)
[2017-07-10] MEDS ORDERED: MIDAZOLAM 2 MG/2 ML VIAL IVP ONE (15:40)
--- NOTE | 2017-07-10 15:42 | PDANEPAE ---
ANE History of Present Illness carotid stenosis ANE Past Medical History - Cardiovascular History Hx Hypertension: No Hx Arrhythmias: Yes Hx Chest Pain: Yes Hx Coronary Artery / Peripheral Vascular Disease: Yes Hx CHF / Valvular Disease: No Hx Palpitations: Yes Cardiovascular History Comment: A-FIB POST CABG 2016 - Pulmonary History Hx COPD: Yes Hx Asthma/Reactive Airway Disease: No Hx Recent Upper Respiratory Infection: No Hx Oxygen in Use at Home: No Hx Sleep Apnea: No Sleep Apnea Screening Result - Last Documented: Negative Pulmonary History Comment: URI 03/2017. No symptoms w/ COPD - Neurologic History Hx Cerebrovascular Accident: No Hx Seizures: No Hx Dementia: No - Endocrine History Hx Diabetes: No - Renal History Hx Renal Disorders: No - Liver History Hx Hepatic Disorders: No - Neurological & Psychiatric Hx Hx Neurological and Psychiatric Disorders: Yes Neurological / Psychiatric History Comment: ALTERED MENTAL STATUS - Cancer History Hx Cancer: No - Congenital Disorder History Hx Congenital Disorders: No - GI History Hx Gastrointestinal Disorders: No - Other Health History Other Health History: Blocked R carotid artery;. L throat lesion;. RHABDOMYOLYSIS. LONG STANDING ANEMIA. HX OF PREV ETOH ABUSE - Chronic Pain History Chronic Pain: No - Surgical History Prior Surgeries: CABGX2 10/2016 POST OP PLEURAL EFFUSION WTIH THORCENTESIS. LT EYE STENT 2003. JINA CATARACT. C SECTION X1. TONSILLECTOMY ANE Review of Systems Review of Systems: - Exercise capacity METS (RN): 4 METS ANE Patient History - Allergies Allergies/Adverse Reactions: diphenhydramine [From Benadryl] Allergy (Mild, Verified 07/04/17 11:54) hyperness, agitation - Home Medications Home Medications: Cholecalciferol Vit D3 [Vitamin D3 (*)] 2,000 units PO DAILY 10/16/16 [Last Taken 07/05/17] Aspirin [Aspirin 81mg (*)] 81 mg PO DAILY 11/05/16 [Last Taken 07/09/17 10:00] Atorvastatin Calcium [Lipitor 20 mg (*)] 20 mg PO HS 11/05/16 [Last Taken 10:00] traZODone [traZODONE 50MG (*)] 75 mg PO HS 04/17/17 [Last Taken 07/10/17 00:15] Apixaban [Eliquis] 2.5 mg PO BID 04/19/17 [Last Taken 07/07/17] Herbals/Supplements -Info Only 1 ea PO DAILY 04/19/17 [Last Taken 07/05/17] Sennosides/Docusate Sodium [Senokot-S] 1 tab PO DAILY 04/19/17 [Last Taken 07/09 10:00] - NPO status NPO Since - Liquids (Date): 07/10/17 NPO Since - Liquids (Time): 11:00 NPO Since - Solids (Date): 07/09/17 NPO Since - Solids (Time): 19:30 - Smoking Hx Smoking Status: Former smoker - Family Anes Hx Family Hx Anesthesia Complications: NONE ANE Labs/Vital Signs - Labs Result Diagrams: 07/10/17 13:10 - Vital Signs Blood Pressure: 122/66 Heart Rate: 78 Respiratory Rate: 16 O2 Sat (%): 98 Height: 154.94 cm Weight: 49.442 kg ANE Physical Exam - Airway Neck exam: FROM Mallampati Score: Class 3 Mouth exam: normal dental/mouth exam - Pulmonary Pulmonary: no respiratory distress - Cardiovascular Cardiovascular: regular rate and rhythym - ASA Status ASA Status: III ANE Anesthesia Plan Anesthesia Plan: general endotracheal anesthesia Lines/Monitors: arterial line
[2017-07-10] MEDS ORDERED: PROPOFOL 200 MG/20 ML VIAL ONE ×2 (15:50→17:55)
[2017-07-10] MEDS ORDERED: fentaNYL 100 MCG/2 ML INJ ONE ×2 (15:50)
[2017-07-10] MEDS ORDERED: HYDROmorphONE/DILAUDID 2 MG/ML INJ ONE (15:50)
[2017-07-10] MEDS ORDERED: LIDO/EPI 1% **for epidural** 30 ML SDV ONE (16:07)
[2017-07-10] MEDS ORDERED: HEPARIN 1000 UNIT/1 ML MDV ONE (16:38)
[2017-07-10] MEDS ORDERED: HEPARIN 10,000 UNIT/10 ML MDV (1,000 UNIT/ML) ONE ×2 (16:39→17:55)
[2017-07-10] MEDS ORDERED: SURGIFLO MATRIX KIT WITH THROMBIN 8 ML TP ONE (17:50)
[2017-07-10] MEDS ORDERED: DEXAMETHASONE 4 MG/ML VIAL ONE (17:55)
[2017-07-10] MEDS ORDERED: ONDANSETRON 4 MG/2 ML VIAL ONE (17:55)
[2017-07-10] MEDS ORDERED: fentaNYL 100 MCG/2 ML INJ IVP PRN (18:06)
[2017-07-10] MEDS ORDERED: HYDROCODONE/APAP 5/325 TAB PO PRN ×2 (18:06→18:13)
[2017-07-10] MEDS ORDERED: NALOXONE HCL 0.4 MG/ML INJ IVP PRN (18:06)
[2017-07-10] MEDS ORDERED: LABETALOL HCL 5 MG/ML 20 ML MDV IVP PRN (18:06)
[2017-07-10] MEDS ORDERED: HYDROmorphONE/DILAUDID 2 MG/ML INJ IVP PRN (18:06)
[2017-07-10] MEDS ORDERED: PROMETHAZINE HCL 25 MG/ML INJ IVP PRN (18:06)
[2017-07-10] MEDS ORDERED: DEXAMETHASONE 4 MG/ML VIAL IVP PRN (18:06)
[2017-07-10] MEDS ORDERED: HYDROCOD/APAP 7.5/325 IN 15ML UDCUP PO PRN (18:13)
--- NOTE | 2017-07-10 18:13 | POSTOPPROG ---
Post Op Note Date of Operation: 07/10/17 Surgeon: Scott Rosas Store Merchandiser: Mikael Elise Anesthesiologist: David Ibrahim Anesthesia: GET(General Endotracheal) Pre-op Diagnosis: right carotid stenosis, soft palate lesion Post-op Diagnosis: same Procedure: soft palate biopsy, right CEA with dacron patch angioplasty Findings: extensive, ulcerative calcific plaque Inf/Abcess present in the surg proc area at time of surgery?: No EBL: Minimal Total fluids administered: 800cc Complications: no immediate Specimen(s): soft palate, carotid plaque
[2017-07-10] MEDS ORDERED: LABETALOL HCL 5 MG/ML 20 ML MDV ONE (18:46)
--- NOTE | 2017-07-10 18:49 | POSTANESTH ---
Post Anesthetic Evaluation Cardiovascular Status: Tx Hyper/Hypo-tension (Pt. Hypertensive, treated with Esmlolol, Hydralazine and Labetalol. HTN improved) Respiratory Status: Normal, Stable Level of Consciousness/Mental Status: Can Participate in Eval Pain Control: Adequate, Prn Tx Ordered Nausea/Vomiting Control: Adequate, Prn Tx Ordered Complications Possibly Related to Anesthesia: None Noted
[2017-07-10] MEDS: ATORVASTATIN CALCIUM 20 MG TAB PO SCH (20:34)
[2017-07-10] MEDS ORDERED: LISINOPRIL 2.5 MG TAB PO SCH (21:00)
--- NOTE | 2017-07-10 21:02 | GOP ---
[f rep st] OPERATIVE REPORT DATE OF OPERATION: 07/10/2017 SURGEON: Scott Rosas MD SUPPLIER RELATIONSHIP DIRECTOR: Mikael Elise ANESTHESIA: General. ANESTHESIOLOGIST: Dr. Ibrahim. PREOPERATIVE DIAGNOSIS: 1. Right carotid stenosis. 2. Soft palate lesion. POSTOPERATIVE DIAGNOSIS: 1. Right carotid stenosis. 2. Soft palate lesion. PROCEDURE PERFORMED: 1. Soft palate tissue biopsy. 2. Right carotid endarterectomy with Dacron patch angioplasty. FINDINGS: Critical stenosis with ulcerating, rigid plaque and diffuse subintimal cheesy plaque proximally. INDICATIONS: 77-year-old female status post a recent CABG. She is noted to have severe right carotid artery stenosis. She is undergoing a right carotid endarterectomy at this time. She is also noted to have a soft tissue lesion biopsy, which has been evaluated by Dr. Geronimo, who was unable to be available for biopsy purposes at this time. Lesional biopsy is being performed concurrently. Risks and benefits of both procedures were explained to the patient and daughter in detail including bleeding, infection, recurrent stenosis , stroke, nerve injury, heart attack as well as other cardio-respiratory complications. All questions were answered. She desires to proceed. DESCRIPTION OF PROCEDURE: General anesthesia was induced. Visual exam of the posterior soft palate, left greater than right, disclosed an area of white lacy thickening. Portions of this were anesthetized with 1% lidocaine with epinephrine. Using a biopsy forceps, multiple strips of the mucosa were retrieved and sent for permanent specimen processing. Satisfactory hemostasis was assured using electrocautery. The neck was subsequently explored through a longitudinal incision along the anterior border of the sternocleidomastoid muscle. The platysma muscle was divided. The anterior border of the sternocleidomastoid was divided down to the level of the facial vein. This was divided between clamps and ties, disclosing a low-lying carotid bifurcation. The vagus nerve was initially coursing anterior to the carotid sheath. This was easily dissected away and allowed to fall posteriorly. The common carotid artery, as well as internal, external, and superior thyroid artery branches were all circumferentially encompassed. A heparin bolus was administered. There was a massively thickened critical stenosis of the internal carotid artery. The plaque was difficult to break into with the arteriotomy. Using an 11-bladed knife, a soft spot within the internal carotid artery was able to be identified and the arteriotomy created in a retrograde fashion down into the common carotid artery. The endarterectomy was completed using a [place] elevator. The internal carotid artery needed to be extended to find a nice clean healthy tapering endpoint, which was subsequently accomplished. The proximal endpoint was more difficult to define. Sitting beneath the level of the plaque was a massively cheesy plaque. Extensive time was spent clearing this back to a satisfactory tapering endpoint where rigid calcific plaque alone posteriorly remained behind. The arteries were all forward-bled and back-bled, showing excellent back bleeding from both the internal and external carotid arteries. Loose fronds were all individually retrieved, allowing for a nice smooth adventitial layer. Tacking sutures were placed upon the high internal carotid artery. A Dacron patch was brought to the field and sewn with competing 6-0 Prolene sutures both proximally and distally. The arteries were all forward-bled and back bled allowing for all particulate debris to be released. Blood flow was established through the external carotid artery initially, followed subsequently into the internal carotid artery. Satisfactory hemostasis was assured throughout the suture line. Surgiflo was left across the patch closure. The vagus nerve, as well as hypoglossal nerves, were all confirmed intact upon completion. The neck was closed in layers with absorbable suture by Dermabond. The patient was extubated in the operating room, taken to recovery moving all 4 extremities well. /[id number]/MODL MTDD
[2017-07-10] MEDS: IBUPROFEN 600 MG TAB PO SCH (21:33)
[2017-07-10] MEDS: traZODone 50 MG TAB PO SCH (21:34)
[2017-07-10] MEDS: LORazepam 0.5 MG TAB PO PRN (22:46)
[2017-07-10] MEDS: ACETAMINOPHEN 325 MG TAB PO PRN (22:48)
[2017-07-10] MEDS: ONDANSETRON 4 MG/2 ML VIAL IVP PRN (22:50)
[2017-07-10] MEDS ORDERED: LORazepam 2 MG/ML INJ IVP PRN (23:10)
[2017-07-10] MEDS: METOPROLOL TARTRATE 5 MG/5 ML INJ IVP SCH (23:15)
--- NOTE | 2017-07-11 03:53 | SOAPPROG ---
SOAP Progress Note Assessment/Plan: Assessment/Plan: 77 yo postop right CEA for stenosis with concurrent soft palette bx. Called initially at 11 pm for postop hematemesis. This was expected due to anticoagulation intraop. Subsequent swelling in neck increased by 40-50% per nursing staff. Due to appropriate concern regarding expanding hematoma I came in to evaluate. No focal neuro exam vitals intact Right neck hematoma 5 cm upper neck with herrera-incisional ecchymosis 5 cm lower No respiratory distress Trachea midline Post op hematoma Larger than normal but not concerning for compression Will re-eval periodically H&H in am 07/11/17 03:48 Objective: Vital Signs Temp Pulse Resp BP Pulse Ox 36.4 C 73 13 130/54 H 98 07/11/17 02:54 07/11/17 02:54 07/10/17 23:40 07/11/17 02:54 07/11/17 02:54 Laboratory Results 07/10/17 13:10 07/09/17 07/10/17 07/11/17 05:59 05:59 05:59 Intake Total 1310 Output Total 250 Balance 1060 ICD10 Worksheet Patient Problems: Problems Problem Status Onset Acute blood loss anemia Acute Anemia Acute CAD in [place] artery Acute Chronic Disease Mgmt/Transitional Care Acute Hyponatremia Acute Paroxysmal atrial fibrillation Acute S/P CABG x 2 Acute ~10/20/16 Weakness Acute Alcohol abuse Chronic
[2017-07-11] MEDS ORDERED: LORazepam 2 MG/ML INJ IVP PRN (03:54)
[2017-07-11] MEDS: ACETAMINOPHEN 325 MG TAB PO PRN ×2 (04:08→10:09)
[2017-07-11] MEDS: IBUPROFEN 600 MG TAB PO SCH ×3 (05:30→21:59)
[2017-07-11] MEDS: ONDANSETRON 4 MG/2 ML VIAL IVP PRN ×2 (05:30→07:46)
[2017-07-11] MEDS: METOPROLOL TARTRATE 5 MG/5 ML INJ IVP SCH ×2 (05:31→11:44)
[2017-07-11] MEDS: PANTOPRAZOLE SODIUM 40 MG TAB PO SCH (07:50)
[2017-07-11] MEDS ORDERED: ONDANSETRON 4 MG/2 ML VIAL IVP PRN (08:19)
[2017-07-11] MEDS ORDERED: ASPIRIN 81 MG CHEWABLE TAB PO SCH (09:00)
--- NOTE | 2017-07-11 09:13 | SOAPPROG ---
<Breana Blood - Last Filed: 07/11/17 09:08> SOAP Progress Note Assessment/Plan: Assessment: S/p right carotid endarterectomy and soft palate biopsy POD #1. Right neck soft tissue swelling and ecchymoses. No evidence of hematoma or tracheal compression. Plan: Reassurance given that neck swelling is soft tissue and will decrease in the next few weeks. Hold Eliquis for 24-48hrs. Continue aspirin. Given additional dosing instructions to better control nausea. Will check in with patient again today. Questions and concerns addressed with patient and her daughter. 07/11/17 09:13 07/11/17 09:24 07/11/17 09:25 Subjective: S/p right carotid endarterectomy and soft palate biopsy POD#1. Patient was checked on at 9pm last with no complaints. At 11pm she had nausea and vomited. Subsequently right neck swelling developed. Denies trouble breathing or swallowing. In minimal neck or oral pain. Continues to have nausea without further emesis. Complains of globus in throat and postnasal drainage. Denies bloody sputum. Objective: Vital Signs Temp Pulse Resp BP Pulse Ox 36.3 C 68 20 100/41 L 97 07/11/17 04:00 07/11/17 04:00 07/11/17 04:00 07/11/17 05:31 07/11/17 04:00 Laboratory Results 07/11/17 04:20 07/11/17 04:20 07/10/17 07/11/17 07/12/17 05:59 05:59 05:59 Intake Total 1430 Output Total 250 Balance 1180 Physical Exam: General: appears comfortable, in no acute distress, afebrile HEENT: anicteric, mild medial right eye ecchymosis, right neck superficial soft tissue swelling, incision clean with appropriate ecchymosis, trachea midline Skin: normal, neck ecchymosis as described Heart: RRR Lungs: CTA bilateral Abdomen: soft, nontender, nondistended Extremities: unremarkable Neuro: no tongue deviation, symmetric facial musculature, set decorator strength equal , lower extremity strength equal, mild appropriate right lower lip ptosis, sensation equal throughout. ICD10 Worksheet Patient Problems: Problems Problem Status Onset Acute blood loss anemia Acute Anemia Acute CAD in [place] artery Acute Chronic Disease Mgmt/Transitional Care Acute Hyponatremia Acute Paroxysmal atrial fibrillation Acute S/P CABG x 2 Acute ~10/20/16 Weakness Acute Alcohol abuse Chronic <Scott Rosas Ronny - Last Filed: 07/11/17 22:47> SOAP Progress Note Assessment/Plan: Assessment:patient seen in am rounds. floor concern regarding neck swelling after retching last evening noted. lopressor is on hold. she is with complaints of nausea only this am. urine output has been limited. her pain is minimal. no neurologic complaints. no trouble swallowing. no cp or sob. exam with large, superficial neck ecchymosis. trachea midline. deep neck compartments soft, nontender. incision clean. neuro alert/appropriate. oropharynx biopsy site healing nicely with small ecchymosis. pod#1 s/p r cea - neuro intact. postop ecchymosis superficially secondary to retching/nausea. Na 130. continue supportive care. fluid challenge today am. keep in house tonight Plan: 07/11/17 22:43 Objective: Vital Signs Temp Pulse Resp BP Pulse Ox 36.8 C 99 20 113/39 L 98 07/11/17 21:00 07/11/17 22:00 07/11/17 22:00 07/11/17 22:00 07/11/17 22:00 Laboratory Results 07/11/17 19:05 07/11/17 04:20 07/10/17 07/11/17 07/12/17 05:59 05:59 05:59 Intake Total 1430 3140 Output Total 250 100 Balance 1180 3040
[2017-07-11] MEDS: CHOLECALCIFEROL VIT D3 1,000 UNITS TAB PO SCH (10:08)
[2017-07-11] MEDS: SENNOSIDES/DOCUSATE SODIUM TAB PO SCH (10:10)
--- NOTE | 2017-07-11 11:47 | ASMTCMCOM ---
CM Note CM Note Notes: 07/11/2017 Case Management Note Met w/pt and daughter Sumi [phone]. Pt admitted for carotid stenosis with right carotid endarterectomy. Pt had a CABG in 2017 and completed her 36th visit to cardiac rehab prior to admission to [facility]. Pt lives independently in her home with a caregiver coming several times a week for housekeeping and to run errands. Meals are prepared by pt or daughter who lives nearby. Pt drives short distances infrequently. She has hired lawn care and snow removal. There are no immediate case management d/c needs identified. There are no PT or OT evals ordered at this time. Case Management d/c poc: anticipating independent Case Management to follow. Date Signed: 07/11/2017 11:46 AM Electronically Signed By:Sarita Chacon RN
[2017-07-11] MEDS ORDERED: NS 500 ML IV ONE ×2 (12:00→20:14)
--- NOTE | 2017-07-11 15:17 | PDMN ---
Medical Necessity Medical necessity: IP surgery per [facility] cpt 35838 R CEA
[2017-07-11] MEDS ORDERED: NS BOLUS 1000 ML (Wide open) IV ONE (15:30)
[2017-07-11] MEDS ORDERED: SODIUM CL NASAL GEL 14.1 GM TUBE TP PRN (15:45)
--- NOTE | 2017-07-11 20:21 | HOSPPROG ---
Hospitalist Progress Note Assessment/Plan: The patient had a rapid response/STAT team called due to symptomatic hypotension. Upon arrival her BP is the 60's systolic. IVF have been started. She is responsive but appears confused. This is a 77 yo female with hx of CAD and Right carotid stenosis who is on POD # 1 s/p right carotid endarterectomy. It appears that BP have been soft throughout the day. There has been no e/o of hematoma or neck tissue swelling and nursing reports that the neck swelling is actually better today. The pt has already received some IVF w/o improvement. She denies cp or sob. no n/v. no reported melena. She is currently non on AC. She did have an aspiring Hgb: decreased ROS: 10 point ROS obtained, negative unless specified above. #Anemia, possibly ABLA #Hypotension, likely due to anemia. No signs of infection #Hx of CAD #s/p Endarterectomy and soft palate lesion #right neck tissue swelling #Encephalopathy Plan: The pt remains hypotensive. She has obtained some improvement with additional IVF bolus. She will be transfused 1 unit STAT Nursing is notifying Dr. Elise who is personnel officer for Surgery who will come in to evaluate Transfer to the ICU for now I have held Aspirin and Lisinopril which can be restarted at the discretion of surgery If continues to be hypotensive may need pressors I do not see any e/o of infection or cardiac compromise. Will check a TTE total critical care time is 40 minutes Subjective: stat team called Objective: Vital Signs Temp Pulse Resp BP Pulse Ox 36.6 C 85 17 76/46 L 95 07/11/17 14:43 07/11/17 14:43 07/11/17 14:43 07/11/17 20:04 07/11/17 14:43 Laboratory Results 07/11/17 19:05 07/11/17 04:20 07/10/17 07/11/17 07/12/17 05:59 05:59 05:59 Intake Total 1430 1100 Output Total 250 Balance 1180 1100 - Physical Exam Constitutional: chronically ill appearing Eyes: PERRL, EOMI Ears, Nose, Mouth, Throat: dry mucous membranes Cardiovascular: regular rate and rhythym, No edema Respiratory: clear to auscultation Gastrointestinal: normoactive bowel sounds, soft, non-tender abdomen Skin: warm Neurologic: No AAOx3 Psychiatric: encephalopathic, No interacting appropriately Lymph, Heme, Immunologic: petechiae ICD10 Worksheet Patient Problems: Problems Problem Status Onset Acute blood loss anemia Acute Anemia Acute CAD in [place] artery Acute Chronic Disease Mgmt/Transitional Care Acute Hyponatremia Acute Paroxysmal atrial fibrillation Acute S/P CABG x 2 Acute ~10/20/16 Weakness Acute Alcohol abuse Chronic
[2017-07-11] MEDS ORDERED: FUROSEMIDE 20 MG/2 ML VIAL IVP ONE (21:18)
--- NOTE | 2017-07-11 21:18 | SOAPPROG ---
SOAP Progress Note Assessment/Plan: Assessment/Plan: 77 yo postop right CEA for stenosis with concurrent soft palette bx. Called initially at 11 pm for postop hematemesis. This was expected due to anticoagulation intraop. Subsequent swelling in neck increased by 40-50% per nursing staff. Due to appropriate concern regarding expanding hematoma I came in to evaluate. No focal neuro exam vitals intact Right neck hematoma 5 cm upper neck with herrera-incisional ecchymosis 5 cm lower No respiratory distress Trachea midline Post op hematoma Larger than normal but not concerning for compression Will re-eval periodically H&H in am Called in again 8:15 pm after stat team alert for hypotension. At 7:40, BP was recorded as 105 with HR 72 after fluid bolus. At that time H/H 7.5/20.5 was noted down from 12/13 this am. As she was mentating and asymptomatic no blood was ordered at that time. Appreciate medicine input On exam pt was alert and oriented Non focal neurologic exam. Following commands and moving extremities as expected with equal car rental agency manager strength RRR Coarse bilat Neck hematoma stable from this am No current diaphoresis Repeat BP 108 after 700 cc NS Acute on chr blood loss anemia Cardiac hx usually on Eliqus (held) Transfer to SDU 2 unit [facility] with lasix in between units Manage expectantly from now. 07/11/17 03:48 07/11/17 21:11 Objective: Vital Signs Temp Pulse Resp BP Pulse Ox 36.7 C 94 16 103/44 L 96 07/11/17 20:43 07/11/17 20:43 07/11/17 20:43 07/11/17 20:43 07/11/17 20:43 Laboratory Results 07/11/17 19:05 07/11/17 04:20 07/10/17 07/11/17 07/12/17 05:59 05:59 05:59 Intake Total 1430 3140 Output Total 250 Balance 1180 3140 ICD10 Worksheet Patient Problems: Problems Problem Status Onset Acute blood loss anemia Acute Anemia Acute CAD in [place] artery Acute Chronic Disease Mgmt/Transitional Care Acute Hyponatremia Acute Paroxysmal atrial fibrillation Acute S/P CABG x 2 Acute ~10/20/16 Weakness Acute Alcohol abuse Chronic
[2017-07-11] MEDS: ATORVASTATIN CALCIUM 20 MG TAB PO SCH (21:59)
[2017-07-11] MEDS: traZODone 50 MG TAB PO SCH (21:59)
[2017-07-11] MEDS: LORazepam 0.5 MG TAB PO PRN (22:42)
[2017-07-12 05:43] LABS: PLATELET COUNT 93 10^3/uL (150-400)
[2017-07-12] MEDS: IBUPROFEN 600 MG TAB PO SCH ×3 (06:02→22:52)
[2017-07-12] MEDS ORDERED: MAGNESIUM SULF 2 GM/WATER 50 ML IV ONE (07:51)
--- NOTE | 2017-07-12 08:22 | SOAPPROG ---
SOAP Progress Note Assessment/Plan: Assessment:symptomatic hypotension last evening - given 2u PRBC - tx'd to SDU after stat team call. patient without complaints today. no cp or sob. no neuro complaints. no swallowing difficulties. afebrile. bp 100's. p 50-60. alert, comfortable. incision clean. swelling markedly diminished. heart reg. lungs clear. neuro intact. mg 1.4. hb 10.5. pod#2 s/p r cea - postop HD lability secondary to carotid manipulation. mg suppl (chronic as well hyponatremia) today. lopressor discontinued yesterday - supportive care appropriate at this time - anticipate stabilization without further intervention. postop anemia dilutional/chronic - given prbc - no evid of ongoing bleeding at this time - will hold eliquis for now. PT/OT to eval and treat. dispo - home today /am? pending therapy assessment/BP stabilization. Plan: 07/11/17 22:43 07/12/17 08:17 Objective: Vital Signs Temp Pulse Resp BP Pulse Ox 36.5 C 82 15 101/37 L 92 07/12/17 07:40 07/12/17 07:40 07/12/17 07:40 07/12/17 07:40 07/12/17 07:40 Laboratory Results 07/12/17 05:10 07/12/17 05:10 07/11/17 07/12/17 07/13/17 05:59 05:59 05:59 Intake Total 1430 4240 Output Total 250 300 Balance 1180 3940 ICD10 Worksheet Patient Problems: Problems Problem Status Onset Acute blood loss anemia Acute Anemia Acute CAD in [place] artery Acute Chronic Disease Mgmt/Transitional Care Acute Hyponatremia Acute Paroxysmal atrial fibrillation Acute S/P CABG x 2 Acute ~10/20/16 Weakness Acute Alcohol abuse Chronic
--- NOTE | 2017-07-12 10:07 | HOSPPROG ---
Hospitalist Progress Note Assessment/Plan: DIAGNOSES: -acute hypotensive episode from bleeding a postoperative setting -post hemorrhagic anemia -mild elevation in creatinine after her hypotensive episode but good urine output -status post carotid endarterectomy and biopsy of soft palate lesion with pathology pending -no acute neurologic abnormalities -subjective sense of orthostasis without objective numeric abnormalities -slight cough which is increased here with eating so far raising concern for possible mild aspiration tendency PLANS: -recommended she spend her day up in chair and doing as much walking as possible -speech therapy evaluation for her swallowing -follow vital signs closely Patient seen by me on hospitalist rounds and multidisciplinary rounds At this point she appears fairly stable. Depending on swallowing, gait stability, stability vital signs she could potentially be ready for discharge later today or tomorrow SUBJECTIVE: Patient feels much better today than yesterday The states that she still had subjective ileus has some sense of orthostasis upon standing Admits to slight cough that is worsened with swallowing No pain, no shortness of breath, has not been using any pain medicines OBJECTIVE Vitals reviewed: Blood pressures notably more stable now, pulse is normal respirations normal no fever Primary Health Care Nurse, my review: Sinus rhythm Exam: alert oriented looks very relaxed cheerful Her neck has ecchymosis and swelling, otherwise looks good with minimal serous drainage from her wound skin warm dry color ok resps not labored lungs clear BSs heart regular abd soft nondistended nontender, bowel sounds present limbs warm, no edema iv site ok Laboratory data: Follow-up hemoglobin this morning is 10 Slight rise in creatinine to 1.1 this morning Objective: Vital Signs Temp Pulse Resp BP Pulse Ox 36.5 C 82 15 101/37 L 92 07/12/17 07:40 07/12/17 07:40 07/12/17 07:40 07/12/17 07:40 07/12/17 07:40 Laboratory Results 07/12/17 05:10 07/12/17 05:10 07/11/17 07/12/17 07/13/17 06:59 06:59 06:59 Intake Total 1430 4240 Output Total 250 300 Balance 1180 3940 - Time Spent With Patient Time Spent with Patient: greater than 35 minutes Time Spent with Patient: Greater than 35 minutes spent on this patients care, greater than 50% of time spent counseling, educating, and coordinating care regarding the above mentioned plan. ICD10 Worksheet Patient Problems: Problems Problem Status Onset Acute blood loss anemia Acute Anemia Acute CAD in [place] artery Acute Chronic Disease Mgmt/Transitional Care Acute Hyponatremia Acute Paroxysmal atrial fibrillation Acute S/P CABG x 2 Acute ~10/20/16 Weakness Acute Alcohol abuse Chronic
[2017-07-12] MEDS: SENNOSIDES/DOCUSATE SODIUM TAB PO SCH (10:48)
[2017-07-12] MEDS: CHOLECALCIFEROL VIT D3 1,000 UNITS TAB PO SCH (10:48)
[2017-07-12] MEDS: PANTOPRAZOLE SODIUM 40 MG TAB PO SCH (10:48)
[2017-07-12] MEDS ORDERED: ZOLPIDEM TARTRATE 5 MG TAB PO PRN (13:16)
--- NOTE | 2017-07-12 13:18 | SOAPPROG ---
SOAP Progress Note Assessment/Plan: Assessment: feeling better since am rounds. stronger walking to BR. denies lightheadedness or other concerns. bp 100's. comfortable up in chair. awaiting PT /OT eval. ok to return to floor. will add memoadelaida mabel per her request for sleep this evening. anticipate dc to home tomorrow. symptomatic hypotension last evening - given 2u PRBC - tx'd to SDU after stat team call. patient without complaints today. no cp or sob. no neuro complaints. no swallowing difficulties. afebrile. bp 100's. p 50-60. alert, comfortable. incision clean. swelling markedly diminished. heart reg. lungs clear. neuro intact. mg 1.4. hb 10.5. pod#2 s/p r cea - postop HD lability secondary to carotid manipulation. mg suppl (chronic as well hyponatremia) today. lopressor discontinued yesterday - supportive care appropriate at this time - anticipate stabilization without further intervention. postop anemia dilutional/chronic - given prbc - no evid of ongoing bleeding at this time - will hold eliquis for now. PT/OT to eval and treat. dispo - home today /am? pending therapy assessment/BP stabilization. Plan: 07/11/17 22:43 07/12/17 08:17 07/12/17 13:17 Objective: Vital Signs Temp Pulse Resp BP Pulse Ox 36.7 C 75 10 L 83/52 L 94 07/12/17 11:47 07/12/17 11:47 07/12/17 11:47 07/12/17 11:47 07/12/17 11:47 Laboratory Results 07/12/17 05:10 07/12/17 05:10 07/11/17 07/12/17 07/13/17 05:59 05:59 05:59 Intake Total 1430 4240 Output Total 250 300 Balance 1180 3940 ICD10 Worksheet Patient Problems: Problems Problem Status Onset Acute blood loss anemia Acute Anemia Acute CAD in [place] artery Acute Chronic Disease Mgmt/Transitional Care Acute Hyponatremia Acute Paroxysmal atrial fibrillation Acute S/P CABG x 2 Acute ~10/20/16 Weakness Acute Alcohol abuse Chronic
[2017-07-12] MEDS: ATORVASTATIN CALCIUM 20 MG TAB PO SCH (22:53)
[2017-07-12] MEDS: traZODone 50 MG TAB PO SCH (22:54)
[2017-07-13] MEDS: IBUPROFEN 600 MG TAB PO SCH (05:00)
[2017-07-13] MEDS: CHOLECALCIFEROL VIT D3 1,000 UNITS TAB PO SCH (09:05)
[2017-07-13] MEDS: SENNOSIDES/DOCUSATE SODIUM TAB PO SCH (09:05)
[2017-07-13] MEDS: PANTOPRAZOLE SODIUM 40 MG TAB PO SCH (09:05)
--- NOTE | 2017-07-13 09:08 | GDS ---
[f rep st] DISCHARGE SUMMARY ADMISSION DIAGNOSIS: Right internal carotid stenosis. DISCHARGE DIAGNOSIS: Right internal carotid stenosis. Secondary dx: Coronary artery disease. Chronic anemia. Soft palate tumor. PROCEDURE: Right carotid endarterectomy with soft palate biopsy. PROCEDURE DATE: 07/10/2017 77-year-old female with coronary artery disease status post coronary artery bypass graft earlier this year. She was admitted for a right carotid endarterectomy and soft palate biopsy. Her postoperative course was notable for postoperative blood pressure lability secondary to carotid manipulation. Her blood pressure was managed conservatively with IV fluids. Blood pressure stabilized prior to discharge. She developed a superficial neck hematoma on POD# 2 after a retching episode - this did not require further intervention. She was given 2 units of packed red blood cells for chronic anemia. Last hemoglobin was 10.4. Hemoglobin will be monitored in the outpatient setting while remaining on anticoagulants. Patient was evaluated by Physical Therapy and Occupational Therapy. Her soft palate biopsy results were pending on discharge. Her hospital course was otherwise unremarkable. Discharge instructions were discussed with her family. She is to restart her Eliquis and losartan tomorrow. Family members will record home blood pressure readings. Activity as tolerated. Regular diet as tolerated. May shower. May use Tylenol for pain. Was given a prescription for Ambien. We will see her back in the office in 1 week. Patient was encouraged to call with fevers, chills, difficulty swallowing , lightheadedness, dizziness, neurologic concerns, wound concerns or any other concerns. /[id number]/MODL MTDD
[2017-07-13 12:10] VITALS: BP 118/55
--- NOTE | 2017-07-13 14:39 | ASMTCMCOM ---
CM Note CM Note Notes: Pt medically stable for d/c with family support. No CM d/c needs identified. Date Signed: 07/13/2017 02:39 PM Electronically Signed By:DARA Musa
--- NOTE | 2017-07-17 15:32 | PQFORM ---
PHYSICIAN QUERY FORM Needs Your Response This query form is being sent to you to assure this patient record is coded properly. Please respond to the question below: BUSINESS RESILIENCY MANAGER QUESTION: Dr Rosas Post Operative Anemia was mentioned in this patients progress notes but only Chronic Anemia was mentioned in the Discharge Summary. Can the Post Op Anemia be further described as Acute Blood Loss Anemia ? ___ Yes ___ No - NO - THIS WAS NOT ACUTE BLOOD LOSS ANEMIA RATHER APPROPRIATE DILUTIONAL ANEMIA AFTER FLUID CHALLENGE WITH A LOW STARTING HEMOGLOBIN. ___ Other (Please Specify ) ___ Unable to Determine Thank You Michell CHAPMAN Driver/Refuse Collector INSTRUCTIONS FOR RESPONSE: Answer question by clicking on the "Edit Document" button. Move cursor to area below the stars. When complete, hit "Save." Click on the "Sign" button, then click "Sign" again. Type in your PIN and hit "Enter." MTDD
== END 2017-07-13 12:40 | disposition home or self-care (01) | DRG 39 ==
LOC: F3N 07-10 11:57 → F2W 07-10 15:50 → F2N 07-11 21:15 → F3N 07-12 16:23
PROVIDERS: ADMIT Surgery; ATTEND Surgery
DX: I65.21 Occlusion and stenosis of right carotid artery (principal); K14.8 Other diseases of tongue; I95.9 Hypotension, unspecified; D53.9 Nutritional anemia, unspecified; I48.0 Paroxysmal atrial fibrillation; I25.10 Atherosclerotic heart disease of native coronary artery without angina pectoris; Z95.1 Presence of aortocoronary bypass graft
CPT/HCPCS: 92526-GN; 92610-GN; 97116-GP; 97161-GP; 97166-GO; 97535-GO; C1768; G8978-GP-CI; G8979-GP-CI; G8980-GP-CI; G8987-GO-CJ; G8988-GO-CI; G8989-GO-CI; G8996-GN-CH; G8996-GN-CJ; G8997-GN-CH; G8998-GN-CH; J0171; J1100; J1170; J1644; J1940; J2060; J2250; J2405; J2704; J3010; J3475; P9016; P9040